=== PATIENT | male | born 1930 | race Caucasian/White ===

== ENCOUNTER 2017-10-14 03:03 | Emergency (ER) | payer MEDICARE ==
[~2017-10-14] VITALS: Ht 177.8 cm; Wt 72.0 kg
[~2017-10-14 03:03] MED LIST: ARTIOIN RIGHT EYE; ARTISOL2 RIGHT EYE; ASPI81TA23 PO; BRIM.15%O RIGHT EYE; CARD180C5 PO; DORZ2SOL7 RIGHT EYE; FURO1TAB60 PO; LATA.005%O RIGHT EYE; METO25TA3 PO; MULTTAB67 PO; SENN1TAB27 PO
[2017-10-14 03:11] VITALS: BP 151/70; PULSE 58; RESP 16; TEMP 98.9; O2SAT 98
[2017-10-14 03:40] VITALS: BP 151/70; PULSE 58; RESP 16; O2SAT 98
[2017-10-14] MEDS ORDERED: SODIUM CHLORIDE 0.9% FLUSH 10 ML FLUSH IV FLUSH PRN (03:45)
--- NOTE | 2017-10-14 03:56 | PD ---
HPI Chief Complaint: Altered Mental Status Time Seen by Provider: 03:32 Travel History International Travel<30 days: No Contact w/Intl Traveler<30days: No Traveled to known affect area: No History of Present Illness HPI 87-year-old male presents with altered mental status by ambulance. There is no family or paramedics to assist with my history when I go to talk with patient. Nursing staff states they were told his symptoms started at 1 PM. Patient can tell me his name and that he is in the hospital but then he will say random things like [id number], pudding. He denies complaints but is a very poor historian. PFSH Past Medical History Cancer: Yes (prostate-15 years ago) Cardiovascular Problems: Yes High Cholesterol: Yes Diabetes: No Diminished Hearing: No Glaucoma: Yes Genitourinary: No Hypertension: Yes Musculoskeletal: No Neurologic: No Reproductive: No Respiratory: No Tetanus Vaccination: Unknown Past Surgical History Eye Surgery: Yes Other Surgery: Yes (prostate cancer) Social History Alcohol Use: No Tobacco Use: No Substance Use: No Allergies-Medications (Allergen,Severity, Reaction): Coded Allergies: penicillin G (Unverified Allergy, Unknown, 10/14/17) Reported Meds & Prescriptions Reported Meds & Active Scripts Active Macrobid (Nitrofurantoin Monohydrate Macrocrystals) 100 Mg Capsule 100 Mg PO BID 5 Days Senna Lax (Sennosides) 8.6 Mg Tab 17.2 Mg PO Q12H PRN 30 Days Lasix (Furosemide) 40 Mg Tab 40 Mg PO BID@09,18 30 Days Aspirin EC (Aspirin) 81 Mg Tabdr 81 Mg PO DAILY 30 Days Cardizem CD 24 HR (Diltiazem CD 24 HR) 180 Mg Caper 180 Mg PO DAILY 30 Days Reported Metoprolol Tartrate 25 Mg Tab 25 Mg PO Q12HR Xalatan Opth Drops (Latanoprost) 0.005% Drops 1 Drop RIGHT EYE HS Multiple Vitamin 1 Tab 1 Tab PO DAILY Lubricant Opth Ointment (Artificial Tear Opth Ointment) 1 Oint 1 Applic RIGHT EYE DAILY Artificial Tears Opth Drops (Artificial Tear Solution Opth Drops) 0.1-0.3% Soln 1 Drop RIGHT EYE DAILY Cosopt Opth Drops (Dorzolamide-Timolol Opth Drops) 22.3-6.8 Mg/Ml Soln 1 Drop RIGHT EYE BID Alphagan P Opth Drops (Brimonidine Tartrate) 0.15% Soln 1 Drop RIGHT EYE DAILY Review of Systems Except as stated in HPI: all other systems reviewed are Neg Physical Exam Exam Limitations: Poor Historian Narrative GENERAL: Well-nourished, well-developed patient. SKIN: Warm and dry. HEAD: Normocephalic and atraumatic. EYES: No injection or drainage. ENT: No nasal drainage noted. NECK: Supple, trachea midline. CARDIOVASCULAR: Regular rate and rhythm RESPIRATORY: Breath sounds equal bilaterally. No accessory muscle use. GASTROINTESTINAL: Abdomen soft, non-tender, nondistended. NEUROLOGICAL: Awake and alert To name, location. Moves all extremities and sensory grossly within normal limits. Normal speech. Data Data Last Documented VS Vital Signs Date Time Temp Pulse Resp B/P (MAP) Pulse Ox O2 Delivery O2 Flow Rate FiO2 10/14/17 07:51 10/14/17 06:38 71 16 95 Room Air 10/14/17 03:11 98.9 Orders Orders Electrocardiogram (10/14/17 03:36) Basic Metabolic Panel (Bmp) (10/14/17 03:36) Complete Blood Count With Diff (10/14/17 03:36) Prothrombin Time / Inr (Pt) (10/14/17 03:36) Act Partial Throm Time (Ptt) (10/14/17 03:36) Urinalysis - C+S If Indicated (10/14/17 03:36) Ct Brain W/O Iv Contrast(Rout) (10/14/17 03:36) Blood Glucose (10/14/17 03:36) Ecg Monitoring (10/14/17 03:36) Iv Access Insert/Monitor (10/14/17 03:36) Oximetry (10/14/17 03:36) Sodium Chloride 0.9% Flush (Ns Flush) (10/14/17 03:45) Cath For Specimen (10/14/17 04:47) Urine Culture (10/14/17 04:18) Nitrofurantoin Monohyd Macrocr (Macrobid (10/14/17 06:30) Ed Discharge Order (10/14/17 07:11) Labs Laboratory Tests Test 10/14/17 03:49 10/14/17 04:18 White Blood Count 6.2 TH/MM3 Red Blood Count 3.23 MIL/MM3 Hemoglobin 11.0 GM/DL Hematocrit 32.5 % Mean Corpuscular Volume 100.7 FL Mean Corpuscular Hemoglobin 34.0 PG Mean Corpuscular Hemoglobin Concent 33.7 % Red Cell Distribution Width 13.2 % Platelet Count 195 TH/MM3 Mean Platelet Volume 9.1 FL Neutrophils (%) (Auto) 63.4 % Lymphocytes (%) (Auto) 19.0 % Monocytes (%) (Auto) 13.2 % Eosinophils (%) (Auto) 3.7 % Basophils (%) (Auto) 0.7 % Neutrophils # (Auto) 4.0 TH/MM3 Lymphocytes # (Auto) 1.2 TH/MM3 Monocytes # (Auto) 0.8 TH/MM3 Eosinophils # (Auto) 0.2 TH/MM3 Basophils # (Auto) 0.0 TH/MM3 CBC Comment DIFF FINAL Differential Comment Prothrombin Time 10.6 SEC Prothromb Time International Ratio 1.0 RATIO Activated Partial Thromboplast Time 25.4 SEC Blood Urea Nitrogen 13 MG/DL Creatinine 0.93 MG/DL Random Glucose 107 MG/DL Calcium Level 8.3 MG/DL Sodium Level 140 MEQ/L Potassium Level 3.1 MEQ/L Chloride Level 107 MEQ/L Carbon Dioxide Level 24.2 MEQ/L Anion Gap 9 MEQ/L Estimat Glomerular Filtration Rate 77 ML/MIN Urine Color YELLOW Urine Turbidity HAZY Urine pH 7.5 Urine Specific [place] 1.010 Urine Protein TRACE mg/dL Urine Glucose (UA) NEG mg/dL Urine Ketones NEG mg/dL Urine Occult Blood NEG Urine Nitrite NEG Urine Bilirubin NEG Urine Urobilinogen 2.0 MG/DL Urine Leukocyte Esterase NEG Urine RBC 1 /hpf Urine WBC 1 /hpf Urine Amorphous Sediment RARE Urine Bacteria OCC /hpf Urine Mucus FEW /lpf Microscopic Urinalysis Comment CATH-CULTURE IND MDM Medical Decision Making Medical Screen Exam Complete: Yes Emergency Medical Condition: Yes Medical Record Reviewed: Yes (past history confirmed) Interpretation(s) CBC & BMP Diagram 10/14/17 03:49 Calcium Level 8.3 L Last [address] 10/14/17 0336 Signed Impressions: Service Date/Time: Saturday, October 14, 2017 03:57 - CONCLUSION: Stable noncontrast head CT. No acute intracranial abnormality is identified. Jasvir Mendoza MD Differential Diagnosis UTI, electrolyte abnormality, intracranial, dementia Narrative Course Will check blood work, urinalysis, CT brain and reevaluate UA question signs of infection but there is no LE or nitrates, patient does have underlying dementia. Discussed with grandson and they will watch over him at home today and I will place him on Macrobid. Patient has no fever, leukocytosis and patient can state his name and location currently he can even state the month and day. neuro exam is nonfocal, Given he has family I think this is appropriate for discharge. Also talked with his daughter who is power of bingo usher over the phone and offered options and she agrees to discharge with close outpatient monitoring. Gave her return instructions Diagnosis Primary Impression: Altered mental status Qualified Codes: R41.82 - Altered mental status, unspecified Patient Instructions: General Instructions Additional Instructions: return as needed, follow with primary tommorrow Med/Other Pt SpecificInfo: Prescription(s) given Scripts Nitrofurantoin Monohydrate Macrocrystals (Macrobid) 100 Mg Capsule 100 MG PO BID for Infection for 5 Days, #10 CAP 0 Refills Prov: Bushra Oropeza MD 10/14/17 Disposition: 01 DISCHARGE HOME Condition: Stable Bushra Oropeza MD Oct 14, 2017 03:56
[2017-10-14 04:02] LABS: BASOPHIL % 0.7 % (0.0-2.0); EOSINOPHIL # 0.2 TH/MM3 (0-0.4); EOSINOPHIL % 3.7 % (0.0-4.0); HEMATOCRIT 32.5 % (39.0-51.0); HEMO FLAGS DIFF FINAL; LYMPHOCYTE # 1.2 TH/MM3 (1.0-4.8); MEAN CELL VOLUME 100.7 FL (80.0-100.0); MEAN CORPUSCULAR HGB CONC 33.7 % (32.0-36.0); MONO % 13.2 % (0.0-8.0); NEUT % 63.4 % (16.0-70.0); PLATELET COUNT 195 TH/MM3 (150-450); RED BLOOD COUNT 3.23 MIL/MM3 (4.50-5.90); RED CELL DISTRIBUTION WIDTH 13.2 % (11.6-17.2); WHITE BLOOD COUNT 6.2 TH/MM3 (4.0-11.0)
[2017-10-14 04:14] LABS: APTT (PATIENT) 25.4 SEC (24.3-30.1); PROTHROMBIN TIME - PATIENT 10.6 SEC (9.8-11.6)
[2017-10-14 04:17] LABS: BICARBONATE 24.2 MEQ/L (21.0-32.0); POTASSIUM 3.1 MEQ/L (3.5-5.1)
--- NOTE | 2017-10-14 04:38 | RADRPT ---
EXAM DATE/TIME: 10/14/2017 03:57 [facility] COMPARISON: CT BRAIN W/O CONTRAST, October 21, 2016, 10:06. INDICATIONS : Altered mental status. RADIATION DOSE: 56.35 CTDIvol (mGy) MEDICAL HISTORY : Hypertension. Carcinoma, prostate. SURGICAL HISTORY : None. ENCOUNTER: Initial ACUITY: 1 day PAIN SCALE: 0/10 LOCATION: cranial TECHNIQUE: Multiple contiguous axial images were obtained of the head. Using automated exposure control and adj ustment of the mA and/or kV according to patient size, radiation dose was kept as low as reasonably a chievable to obtain optimal diagnostic quality images. DICOM format image data is available electro nically for review and comparison. FINDINGS: CEREBRUM: There is mild cerebral atrophy. Ventricles are normal. Mild periventricular white matter low-attenuat ion is present. No evidence of midline shift, mass lesion, hemorrhage or acute infarction. No extra -axial fluid collections are seen. POSTERIOR FOSSA: The cerebellum and brainstem are intact. The 4th ventricle is midline. The cerebellopontine angle i s unremarkable. EXTRACRANIAL: Visualized sinuses are clear. SKULL: The calvaria is intact. No evidence of skull fracture. CONCLUSION: Stable noncontrast head CT. No acute intracranial abnormality is identified. Jasvir Mendoza MD on October 14, 2017 at 4:35 Board Certified Radiologist. This report was verified electronically.
[2017-10-14 05:39] LABS: BACTERIA, URINE OCC /hpf; BLOOD, URINE NEG (NEG); COMMENT (UR) CATH-CULTURE IND; CULTURE IF INDICATED CATH CULTURE IND; GLUCOSE,URINE NEG (NEG); KETONE, URINE NEG (NEG); MUCUS URINE FEW /lpf (OCC); NITRITE,URINE NEG (NEG); PH, URINE 7.5 (5.0-8.5); URINE COLOR YELLOW (YELLW/STRAW)
[2017-10-14] MEDS ORDERED: NITROFURANTOIN MONOHYD MACROCR 100 MG CAP PO ONE (06:30)
[2017-10-14 06:38] VITALS: BP 116/57; PULSE 71; RESP 16; O2SAT 95
[2017-10-14] MEDS ORDERED: MACR100C2 PO (06:54)
--- NOTE | 2017-10-14 16:29 | EKG ---
Date Performed: 10/14/2017 Time Performed: 03:57:10 PTAGE: 87 years EKG: SINUS BRADYCARDIA MARKED LEFT AXIS DEVIATION SEPTAL MYOCARDIAL INFARCTION ABNORMAL ECG Comp ared to PREVIOUS TRACING , patient is no longer in RVR and patient is no longer tachycardic. PREV IOUS TRACIN10/17/2016 06.28 DOCTOR: Karmen Ramsey Interpretating Date/Time 10/14/2017 16:29:14
== END 2017-10-14 07:52 | disposition home or self-care (01) ==
LOC: NEPE 03:03
DX: R41.82 Altered mental status, unspecified (principal); R00.1 Bradycardia, unspecified; R94.31 Abnormal electrocardiogram [ECG] [EKG]; E78.00 Pure hypercholesterolemia, unspecified; I10 Essential (primary) hypertension; H40.9 Unspecified glaucoma; Z79.82 Long term (current) use of aspirin; Z79.899 Other long term (current) drug therapy
CPT/HCPCS: 70450; 80048; 81001; 85025; 85610; 85730; 87086; 93005; 99285

== ENCOUNTER 2017-11-02 19:16 | Observation (INO) | payer MEDICARE ==
[~2017-11-02] VITALS: Ht 175.3 cm; Wt 65.0 kg
[~2017-11-02 19:16] MED LIST changes: +MACR100C2 PO
[2017-11-02 19:20] VITALS: BP 135/78; PULSE 67; RESP 18; TEMP 97.8; O2SAT 98
[2017-11-02 20:27] LABS: AUTOMATED NEUTROPHIL # 6.2 TH/MM3 (1.8-7.7); BASOPHIL # 0.1 TH/MM3 (0-0.2); BASOPHIL % 1.1 % (0.0-2.0); EOSINOPHIL # 0.3 TH/MM3 (0-0.4); EOSINOPHIL % 2.9 % (0.0-4.0); HEMATOCRIT 38.8 % (39.0-51.0); HEMOGLOBIN 13.2 GM/DL (13.0-17.0); LYMPH % 19.1 % (9.0-44.0); LYMPHOCYTE # 1.7 TH/MM3 (1.0-4.8); MEAN CELL VOLUME 100.3 FL (80.0-100.0); MEAN CORPUSCULAR HGB CONC 33.9 % (32.0-36.0); MEAN PLATELET VOLUME 8.9 FL (7.0-11.0); MONO % 8.3 % (0.0-8.0); MONOCYTE # 0.7 TH/MM3 (0-0.9); NEUT % 68.6 % (16.0-70.0); PLATELET COUNT 339 TH/MM3 (150-450); RED BLOOD COUNT 3.87 MIL/MM3 (4.50-5.90); RED CELL DISTRIBUTION WIDTH 13.7 % (11.6-17.2)
--- NOTE | 2017-11-02 20:32 | RADRPT ---
EXAM DATE/TIME: 11/02/2017 20:05 [facility] COMPARISON: CT BRAIN W/O CONTRAST, October 21, 2016, 10:06. CT BRAIN W/O CONTRAST, October 14, 2017, 3:57. INDICATIONS : Posterior head pain due to fall. RADIATION DOSE: 47.21 CTDIvol (mGy) MEDICAL HISTORY : Hypertension. Carcinoma, prostate. SURGICAL HISTORY : None. ENCOUNTER: Initial ACUITY: 2 days PAIN SCALE: 5/10 LOCATION: Bilateral cranial posterior. TECHNIQUE: Multiple contiguous axial images were obtained of the head. Using automated exposure control and adj ustment of the mA and/or kV according to patient size, radiation dose was kept as low as reasonably a chievable to obtain optimal diagnostic quality images. DICOM format image data is available electro nically for review and comparison. FINDINGS: CEREBRUM: Focal area of encephalomalacia in the right MCA/SERVICE LEARNING COORDINATOR watershed zone, characteristic of old infarction, is similar in size to prior CT 10/14/17, but is more hypodense suggesting a completed infarction. Th e ventricles are symmetric in size. The ventricles, sulci, and basal cisterns are prominent, charact eristic of mild central cortical atrophy. No evidence of acute blood products. No extra-axial fluid or blood. POSTERIOR FOSSA: The cerebellum and brainstem are intact. The 4th ventricle is midline. The cerebellopontine angle i s unremarkable. EXTRACRANIAL: The visualized portion of the orbits is intact. SKULL: The calvaria is intact. No evidence of skull fracture. CONCLUSION: 1. No acute findings in the brain. 2. Mild central and cortical atrophy. 3. Right MCA/SERVICE LEARNING COORDINATOR watershed infarct, subacute or chronic. Darian Esteban MD on November 02, 2017 at 20:27 Board Certified Radiologist. This report was verified electronically.
--- NOTE | 2017-11-02 20:47 | PD ---
HPI Chief Complaint: Fall Time Seen by Provider: 20:41 Travel History International Travel<30 days: No Contact w/Intl Traveler<30days: No Traveled to known affect area: No History of Present Illness HPI 87-year-old male presents to the emergency department by private transportation the care of family for evaluation of generalized weakness and right rib pain. Patient had an unwitnessed fall on Tuesday unknown loss of consciousness. Patient was seen October 14 for generalized weakness and diagnosed with UTI. Patient did prescribe Macrobid. Patient this evening was noted by grandson to complain of pain in the right side of his chest with movement. Agent was noted to have generalized weakness. Patient has not had imaging of the head since fall on Tuesday. Patient denies any shortness of breath. No generalized or anterior chest pain. Patient only has pain with movement and deep inspiratory effort. No fever or chills. Patient has had nausea without vomiting. No abdominal pain no diarrhea. Past that was a significant for hypertension dyslipidemia and blindness. Patient reports right sided chest wall pain 5/10 in intensity. Patient lives independently with his grandsons and his home and according to grandson at bedside there is always an adult in the household with the patient. PFSH Past Medical History Narrative Medical Prostate cancer blindness hypertension dyslipidemia no tobacco use alcohol use Cancer: Yes (prostate-15 years ago) Cardiovascular Problems: Yes High Cholesterol: Yes Diabetes: No Diminished Hearing: No Glaucoma: Yes Genitourinary: No Hypertension: Yes Musculoskeletal: No Neurologic: No Reproductive: No Respiratory: No Past Surgical History Eye Surgery: Yes Other Surgery: Yes (prostate cancer) Social History Alcohol Use: No Tobacco Use: No Substance Use: No Allergies-Medications (Allergen,Severity, Reaction): Coded Allergies: penicillin G (Unverified Allergy, Unknown, 11/02/17) Reported Meds & Prescriptions Reported Meds & Active Scripts Active Lasix (Furosemide) 40 Mg Tab 40 Mg PO BID@,18 30 Days Aspirin EC (Aspirin) 81 Mg Tabdr 81 Mg PO DAILY 30 Days Cardizem CD 24 HR (Diltiazem CD 24 HR) 180 Mg Caper 180 Mg PO DAILY 30 Days Reported Metoprolol Tartrate 25 Mg Tab 25 Mg PO Q12HR Xalatan Opth Drops (Latanoprost) 0.005% Drops 1 Drop RIGHT EYE HS Multiple Vitamin 1 Tab 1 Tab PO DAILY Lubricant Opth Ointment (Artificial Tear Opth Ointment) 1 Oint 1 Applic RIGHT EYE DAILY Artificial Tears Opth Drops (Artificial Tear Solution Opth Drops) 0.1-0.3% Soln 1 Drop RIGHT EYE DAILY Cosopt Opth Drops (Dorzolamide-Timolol Opth Drops) 22.3-6.8 Mg/Ml Soln 1 Drop RIGHT EYE BID Alphagan P Opth Drops (Brimonidine Tartrate) 0.15% Soln 1 Drop RIGHT EYE DAILY Review of Systems Except as stated in HPI: all other systems reviewed are Neg General / Constitutional: No: Fever, Chills Eyes: No: Visual changes HENT: Positive: Headaches, No: Neck Pain Cardiovascular: Positive: Chest Pain or Discomfort (right chest wall) Respiratory: No: Shortness of Breath, Pleuritic Pain Gastrointestinal: Positive: Nausea, No: Vomiting, Diarrhea, Abdominal Pain Musculoskeletal: No: Myalgias, Arthralgias Skin: No Rash Neurologic: Positive: Weakness, Dizziness, No: Syncope, Focal Abnormalities Psychiatric: No: Anxiety Hematologic/Lymphatic: No: Lymph Node Enlargement Physical Exam Narrative GENERAL: Well-developed well-nourished male in no acute distress no respiratory distress GCS 15 SKIN: Warm and dry. HEAD: Atraumatic. Normocephalic. EYES: Pupils equal and round. No scleral icterus. No injection or drainage. ENT: No nasal bleeding or discharge. Mucous membranes pink and moist. NECK: Trachea midline. No JVD. No midline tenderness to direct palpation along the cervical spine, no bony step-off. CARDIOVASCULAR: Regular rate and rhythm. Chest wall: No ecchymosis no abrasion no point tenderness or crepitus no induration no erythema. RESPIRATORY: No accessory muscle use. Clear to auscultation. Breath sounds equal bilaterally. GASTROINTESTINAL: Abdomen soft, non-tender, nondistended. Hepatic and splenic margins not palpable. MUSCULOSKELETAL: Extremities without clubbing, cyanosis, or edema. No obvious deformities. NEUROLOGICAL: Awake and alert. No obvious cranial nerve deficits. Motor grossly within normal limits. Five out of 5 muscle strength in the arms and legs. Normal speech. PSYCHIATRIC: Appropriate mood and affect; insight and judgment normal. Data Data Last Documented VS Vital Signs Date Time Temp Pulse Resp B/P (MAP) Pulse Ox O2 Delivery O2 Flow Rate FiO2 11/02/17 21:45 Nasal Cannula 11/02/17 19:20 97.8 67 18 135/78 (97) 98 Orders Orders Prothrombin Time / Inr (Pt) (11/02/17 19:23) Act Partial Throm Time (Ptt) (11/02/17 19:23) Complete Blood Count With Diff (11/02/17 19:23) Comprehensive Metabolic Panel (11/02/17 19:23) Creatine Kinase (Cpk) (11/02/17 19:23) Urinalysis - C+S If Indicated (11/02/17 19:23) Ct Brain W/O Iv Contrast(Rout) (11/02/17 19:23) Ct Cerv Spine W/O Contrast (11/02/17 ) Ribs, Uni (W/Exp Cxr-Min 3vw) (11/02/17 ) Troponin I (11/02/17 20:41) Ckmb (Isoenzyme) Profile (11/02/17 20:55) Ketorolac Inj (Toradol Inj) (11/02/17 22:00) Acetaminophen (Tylenol) (11/02/17 22:30) Aspirin Chew (Aspirin Chew) (11/02/17 22:30) Admit Order (Ed Use Only) (11/02/17 ) Instructor Kindergarten / Telemetry [id number] (11/02/17 23:03) Activity Oob With Assistance (11/02/17 23:03) Notify Dr: Other (11/02/17 23:03) Labs Laboratory Tests Test 11/02/17 19:51 White Blood Count 9.0 TH/MM3 Red Blood Count 3.87 MIL/MM3 Hemoglobin 13.2 GM/DL Hematocrit 38.8 % Mean Corpuscular Volume 100.3 FL Mean Corpuscular Hemoglobin 34.0 PG Mean Corpuscular Hemoglobin Concent 33.9 % Red Cell Distribution Width 13.7 % Platelet Count 339 TH/MM3 Mean Platelet Volume 8.9 FL Neutrophils (%) (Auto) 68.6 % Lymphocytes (%) (Auto) 19.1 % Monocytes (%) (Auto) 8.3 % Eosinophils (%) (Auto) 2.9 % Basophils (%) (Auto) 1.1 % Neutrophils # (Auto) 6.2 TH/MM3 Lymphocytes # (Auto) 1.7 TH/MM3 Monocytes # (Auto) 0.7 TH/MM3 Eosinophils # (Auto) 0.3 TH/MM3 Basophils # (Auto) 0.1 TH/MM3 CBC Comment DIFF FINAL Differential Comment Prothrombin Time 10.4 SEC Prothromb Time International Ratio 1.0 RATIO Activated Partial Thromboplast Time 26.1 SEC Urine Color YELLOW Urine Turbidity CLEAR Urine pH 6.0 Urine Specific [place] 1.020 Urine Protein TRACE mg/dL Urine Glucose (UA) NEG mg/dL Urine Ketones NEG mg/dL Urine Occult Blood NEG Urine Nitrite NEG Urine Bilirubin NEG Urine Urobilinogen 4.0 MG/DL Urine Leukocyte Esterase NEG Urine WBC 1 /hpf Urine Mucus FEW /lpf Microscopic Urinalysis Comment CULT NOT INDICATED Blood Urea Nitrogen 15 MG/DL Creatinine 1.11 MG/DL Random Glucose 138 MG/DL Total Protein 8.1 GM/DL Albumin 3.7 GM/DL Calcium Level 9.2 MG/DL Alkaline Phosphatase 180 U/L Aspartate Amino Transf (AST/SGOT) 16 U/L Alanine Aminotransferase (ALT/SGPT) 17 U/L Total Bilirubin 0.7 MG/DL Sodium Level 143 MEQ/L Potassium Level 4.0 MEQ/L Chloride Level 109 MEQ/L Carbon Dioxide Level 22.9 MEQ/L Anion Gap 11 MEQ/L Estimat Glomerular Filtration Rate 63 ML/MIN Total Creatine Kinase 36 U/L Troponin I LESS THAN 0.02 NG/ML MDM Medical Decision Making Medical Screen Exam Complete: Yes Emergency Medical Condition: Yes Medical Record Reviewed: Yes Interpretation(s) CBC & BMP Diagram 11/02/17 19:51 Total Protein 8.1, Albumin 3.7, Calcium Level 9.2, Alkaline Phosphatase 180 H, Aspartate Amino Transf (AST/SGOT) 16, Alanine Aminotransferase (ALT/SGPT) 17, Total Bilirubin 0.7 Vital Signs Date Time Temp Pulse Resp B/P (MAP) Pulse Ox O2 Delivery O2 Flow Rate FiO2 11/02/17 19:20 97.8 67 18 135/78 (97) 98 Room Air EKG sinus bradycardia rate 55 axis deviation QS septally age-indeterminate infarct no acute ST elevation or injury pattern change noted Troponin I: Less than 0.02, not elevated; CK is 35 not elevated Last Impressions Head CT 11/02/171922 Signed Impressions: Service Date/Time: Thursday, November 02, 2017 20:05 - CONCLUSION: 1. No acute findings in the brain. 2. Mild central and cortical atrophy. 3. Right MCA/CAMPAIGN SPECIALIST watershed infarct, subacute or chronic. aDrian Esteban MD Cervical Spine CT 11/02/17 0000 Signed Impressions: Service Date/Time: Thursday, November 02, 2017 20:05 - CONCLUSION: No acute findings in the cervical spine. Degenerative changes are similar to prior CT cervical spine 2013. Darian Esteban MD Differential Diagnosis Minor closed head injury, ICH cervical spine sprain strain fracture rib fracture pneumothorax pleural effusion hemothorax UTI ACS OK renal failure pneumonia sepsis Narrative Course Imaging studies ordered along with EKG patient placed on rn cardiac rehab with continuous pulse oximetry is unaffected for resulting Physician Communication Physician Communication discussed with Dr Ruiz --discussed with Dr Martell --change to [facility] for Dr Ruiz; discussed with Dr Aguero Diagnosis Primary Impression: Contusion of right chest wall Additional Impression: Recent cerebrovascular accident (CVA) Admitting Information Admitting Physician Requests: Observation Referrals: Primary Care Physician 1 day Patient Instructions: General Instructions Additional Instructions: Follow-up with primary care provider call office in a.m. to schedule follow-up appointment Increase fluid hydration May take acetaminophen/Tylenol as needed for minor pain or fever 100.4F or greater Complete course of antibiotic as prescribed Return to the emergency department for any concerns or change in condition Recommend use of walker to assist ambulation Med/Other Pt SpecificInfo: No Meds Exist/No RX given Disposition: 01 DISCHARGE HOME Condition: Stable Zahraa Duong MD Nov 02, 2017 20:47
[2017-11-02 20:50] LABS: ALBUMIN 3.7 GM/DL (3.4-5.0); AST (GOT) 16 U/L (15-37); BICARBONATE 22.9 MEQ/L (21.0-32.0); BLOOD UREA NITROGEN 15 MG/DL (7-18); CALCIUM 9.2 MG/DL (8.5-10.1); CHLORIDE 109 MEQ/L (98-107); CREATININE 1.11 MG/DL (0.60-1.30); GLOMERULAR FILTRATION RATE 63 ML/MIN (>89); GLUCOSE,RANDOM 138 MG/DL (74-106); SODIUM (NA) 143 MEQ/L (136-145)
[2017-11-02 20:51] LABS: ALT (GPT) 17 U/L (12-78); BILIRUBIN, URINE NEG (NEG); BLOOD, URINE NEG (NEG); GLUCOSE,URINE NEG (NEG); KETONE, URINE NEG (NEG); MUCUS URINE FEW /lpf (OCC); NITRITE,URINE NEG (NEG); URINE COLOR YELLOW (YELLW/STRAW); URINE LEUKOCYTE ESTERASE NEG (NEG)
[2017-11-02 20:53] LABS: ALKALINE PHOSPHATASE 180 U/L (45-117); TOTAL BILIRUBIN ADULT 0.7 MG/DL (0.2-1.0); TOTAL PROTEIN 8.1 GM/DL (6.4-8.2)
[2017-11-02 20:58] LABS: PROTHROMBIN TIME - PATIENT 10.4 SEC (9.8-11.6)
--- NOTE | 2017-11-02 21:37 | RADRPT ---
EXAM DATE/TIME: 11/02/2017 20:05 [facility] COMPARISON: CT CERVICAL SPINE W/O CONTRAST, July 12, 2013, 16:02. INDICATIONS : Posterior neck pain due to fall. RADIATION DOSE: 41.22 CTDIvol (mGy) MEDICAL HISTORY : Hypertension. Carcinoma, prostate. SURGICAL HISTORY : None. ENCOUNTER: Initial ACUITY: 2 days PAIN SCALE: 5/10 LOCATION: Bilateral posterior neck. TECHNIQUE: Volumetric scanning of the cervical spine was performed. Multiplanar reconstructions in the sagittal, coronal and oblique axial planes were performed. Using automated exposure control and adjustment o f the mA and/or kV according to patient size, radiation dose was kept as low as reasonably achievable to obtain optimal diagnostic quality images. DICOM format image data is available electronically f or review and comparison. FINDINGS: Comparison is made to prior CT in 2013. There is reversal of the upper cervical lordosis and moderat e severity discogenic degenerative changes at C5-6 and C6-7. Less than 1 mm anterolisthesis at C4-5. The appearance is unchanged from prior examination. The posterior elements are normal and without evidence of locked or perched facets. Diffuse multilevel hypertrophic changes in the posterior eleme nts is stable. No fracture seen. The bony neural foramen are moderately narrowed bilaterally at C4- 5 and C5-6. Prominent calcification the level of the carotid bulb bilaterally. CONCLUSION: No acute findings in the cervical spine. Degenerative changes are similar to prior CT cervical spine 2013. Darian Esteban MD on November 02, 2017 at 21:32 Board Certified Radiologist. This report was verified electronically.
[2017-11-02] MEDS ORDERED: KETOROLAC TROMETHAMINE 30 MG/ML (IVP) VIAL IV PUSH ONE (22:00)
[2017-11-02] MEDS ORDERED: ACETAMINOPHEN 325 MG TAB PO ONE (22:30)
[2017-11-02] MEDS ORDERED: ASPIRIN 81 MG CHEW TAB CHEW ONE (22:30)
--- NOTE | 2017-11-02 22:31 | RADRPT ---
EXAM DATE/TIME: 11/02/2017 21:06 [facility] COMPARISON: CT THORAX W/O CONTRAST, October 21, 2016, 10:07. CHEST SINGLE AP, October 25, 2016, 15:48. INDICATIONS : Right sided rib pain post fall today MEDICAL HISTORY : Hypertension. Carcinoma, prostate SURGICAL HISTORY : None. ENCOUNTER: Initial ACUITY: 1 day PAIN SCORE: 5/10 LOCATION: Right posterior ribs FINDINGS: Multiple views of the right ribs were performed. There is no evidence of displaced fracture. No zandra tructive lesions or areas of periosteal thickening are seen. Expiratory view of the chest is negativ e for pneumothorax. The mediastinal structures are midline. Stable prominence of the right hilar re gion. CONCLUSION: Negative right rib series. Darian Esteban MD on November 02, 2017 at 22:26 Board Certified Radiologist. This report was verified electronically.
[2017-11-02 23:18] VITALS: BP 146/72; PULSE 56; RESP 16; O2SAT 98
[2017-11-02] MEDS ORDERED: ENALAPRILAT 1.25 MG/ML VIAL IV PUSH PRN (23:45)
[2017-11-02] MEDS ORDERED: DEXTROSE 50% IN WATER 50 ML VIAL(D50) IV PUSH PRN (23:45)
[2017-11-02] MEDS ORDERED: SODIUM CHLORIDE 0.9% FLUSH 10 ML FLUSH IV FLUSH PRN (23:45)
[2017-11-02] MEDS ORDERED: GLUCAGON 1 MG/ML VIAL OTHER PRN (23:45)
[2017-11-03] VITALS (11 sets, daily range): BP systolic 113–157; BP diastolic 59–88; PULSE 55–74; RESP 16–21; TEMP 96–98.1; O2SAT 95–99
[2017-11-03 06:43] LABS: CHOLESTEROL 140 MG/DL (120-200); TRIGLYCERIDES 227 MG/DL (42-150)
[2017-11-03 06:47] LABS: CHOLESTEROL/ HDL RATIO 3.42 RATIO; HDL CHOLESTEROL 40.9 MG/DL (40.0-60.0); LDL CHOLESTEROL 54 MG/DL (0-99)
[2017-11-03] MEDS: INSULIN ASPART SUPPLEMENTAL SCALE SQ SCH ×4 (07:51→20:11)
[2017-11-03] MEDS: SODIUM CHLORIDE 0.9% FLUSH 10 ML FLUSH IV FLUSH SCH ×2 (08:04→20:11)
--- NOTE | 2017-11-03 08:43 | HHI.HP ---
[facility] No Primary Care Physician Admission Diagnosis recent cva; right chest wall contusion Diagnoses: Chief Complaint: Multiple falls Travel History International Travel<30 Days: No Contact w/Intl Traveler <30 Da: No Traveled to Known Affected Are: No History of Present Illness This is an 87-year-old male past medical history hypertension, hyperlipidemia, history of CVA with no deficits, and history of prostate cancer who presented with multiple falls. Patient stated that he presented because he has been falling multiple times the past week. I asked him in regards to his rib cage that was noted in the ER physician no and patient deny any pain. He denied any imbalance or focal neurological deficits. He stated that he just feels like he needs his cane and he usually doesn't walk with his cane but does not know why. Denies any generalized weakness. Denies any visual changes or headache. Patient takes baby aspirin at home. At the moment he has no other complaints. All other review of system reviewed and negative. Past Family Social History Past Medical History History of CVA Hypertension History of prostate cancer Hyperlipidemia Glaucoma Past Surgical History Multiple back surgery Surgery on prostate Eye surgery Reported Medications Reported Meds & Active Scripts Active Lasix (Furosemide) 40 Mg Tab 40 Mg PO BID@09,18 30 Days Aspirin EC (Aspirin) 81 Mg Tabdr 81 Mg PO DAILY 30 Days Cardizem CD 24 HR (Diltiazem CD 24 HR) 180 Mg Caper 180 Mg PO DAILY 30 Days Reported Metoprolol Tartrate 25 Mg Tab 25 Mg PO Q12HR Xalatan Opth Drops (Latanoprost) 0.005% Drops 1 Drop RIGHT EYE HS Multiple Vitamin 1 Tab 1 Tab PO DAILY Lubricant Opth Ointment (Artificial Tear Opth Ointment) 1 Oint 1 Applic RIGHT EYE DAILY Artificial Tears Opth Drops (Artificial Tear Solution Opth Drops) 0.1-0.3% Soln 1 Drop RIGHT EYE DAILY Cosopt Opth Drops (Dorzolamide-Timolol Opth Drops) 22.3-6.8 Mg/Ml Soln 1 Drop RIGHT EYE BID Alphagan P Opth Drops (Brimonidine Tartrate) 0.15% Soln 1 Drop RIGHT EYE DAILY Allergies: Coded Allergies: penicillin G (Unverified Allergy, Unknown, 11/02/17) Active Ordered Medications Current Medications Ketorolac Tromethamine (Toradol Inj) 30 mg ONCE ONCE IV PUSH ; Start 11/02/17 at 22:00; Stop 11/02/17 at 22:25; Status DC Acetaminophen (Tylenol) 650 mg ONCE ONCE PO Last administered on 11/02/17 22 :46; Start 11/02/17 at 22:30; Stop 11/02/17 at 22:31; Status DC Aspirin (Aspirin Chew) 162 mg ONCE ONCE CHEW Last administered on 11/02/17 22:46; Start 11/02/17 at 22:30; Stop 11/02/17 at 22:31; Status DC Sodium Chloride (NS Flush) 2 ml BID IV FLUSH Last administered on 11/03/17 08 :04; Start 11/03/17 at 09:00 Sodium Chloride (NS Flush) 2 ml UNSCH PRN IV FLUSH FLUSH AFTER USING IV ACCESS ; Start 11/02/17 at 23:45 Enalaprilat (Vasotec Inj) 1.25 mg Q4H PRN IV PUSH For SBP > 220 or DBP > 120; Start 11/02/17 at 23:45 Aspirin (Aspirin) 325 mg DAILY PO Last administered on 11/03/17 08:04; Start 11/03/17 at 09:00 Insulin Aspart (NovoLOG SUPPLEMENTAL SCALE) 1 ACHS SQ ; Start 11/03/17 at 08:00 Dextrose (D50w (Vial) Inj) 50 ml UNSCH PRN IV PUSH HYPOGLYCEMIA-SEE COMMENTS; Start 11/02/17 at 23:45 Glucagon (Glucagon Inj) 1 mg UNSCH PRN OTHER HYPOGLYCEMIA-SEE COMMENTS; Start 11/02/17 at 23:45 Sodium Chloride 1,000 ml @ 75 mls/hr [id number] IV ; Start 11/03/17 at 09:00 Warfarin Sodium (Coumadin) 5 mg DAILY@1600 PO ; Start 11/03/17 at 16:00; Status UNV Family History Patient denies any past family history. Social History Patient lives with 3 of his grandson. Denies any alcohol, tobacco, illicit drug use. Physical Exam Vital Signs Vital Signs Date Time Temp Pulse Resp B/P (MAP) Pulse Ox O2 Delivery O2 Flow Rate FiO2 11/03/17 08:02 97.6 58 21 147/73 (97) 96 Room Air 11/03/17 05:00 72 16 119/59 (79) 98 Room Air 11/03/17 03:00 74 16 113/66 (82) 99 Room Air 11/03/17 01:58 97 21 11/03/17 01:00 69 16 153/88 (109) 96 Room Air 11/02/17 23:18 56 16 146/72 (96) 98 Room Air 11/02/17 21:45 Nasal Cannula 11/02/17 19:20 97.8 67 18 135/78 (97) 98 Room Air Physical Exam GENERAL: This is a well-nourished, well-developed patient, in no apparent distress. SKIN: No rashes, ecchymoses or lesions. Cool and dry. HEAD: Atraumatic. Normocephalic. No temporal or scalp tenderness. EYES: Pupils equal round and reactive. Extraocular motions intact. No scleral icterus. No injection or drainage. ENT: Nose without bleeding, purulent drainage or septal hematoma. Throat without erythema, tonsillar hypertrophy or exudate. Uvula midline. Airway patent. NECK: Trachea midline. No JVD or lymphadenopathy. Supple, nontender, no meningeal signs. CARDIOVASCULAR: Regular rate and rhythm without murmurs, gallops, or rubs. RESPIRATORY: Clear to auscultation. Breath sounds equal bilaterally. No wheezes , rales, or rhonchi. GASTROINTESTINAL: Abdomen soft, non-tender, nondistended. No hepato-splenomegaly , or palpable masses. No guarding. MUSCULOSKELETAL: Extremities without clubbing, cyanosis, or edema. No joint tenderness, effusion, or edema noted. No calf tenderness. Negative Homans sign bilaterally. NEUROLOGICAL: Awake and alert. Cranial nerves II through XII intact. Motor and sensory grossly within normal limits. Five out of 5 muscle strength in all muscle groups. Normal speech. Laboratory Laboratory Tests Test 11/02/17 19:51 11/03/17 05:47 White Blood Count 9.0 Red Blood Count 3.87 Hemoglobin 13.2 Hematocrit 38.8 Mean Corpuscular Volume 100.3 Mean Corpuscular Hemoglobin 34.0 Mean Corpuscular Hemoglobin Concent 33.9 Red Cell Distribution Width 13.7 Platelet Count 339 Mean Platelet Volume 8.9 Neutrophils (%) (Auto) 68.6 Lymphocytes (%) (Auto) 19.1 Monocytes (%) (Auto) 8.3 Eosinophils (%) (Auto) 2.9 Basophils (%) (Auto) 1.1 Neutrophils # (Auto) 6.2 Lymphocytes # (Auto) 1.7 Monocytes # (Auto) 0.7 Eosinophils # (Auto) 0.3 Basophils # (Auto) 0.1 CBC Comment DIFF FINAL Differential Comment Prothrombin Time 10.4 Prothromb Time International Ratio 1.0 Activated Partial Thromboplast Time 26.1 Urine Color YELLOW Urine Turbidity CLEAR Urine pH 6.0 Urine Specific [place] 1.020 Urine Protein TRACE Urine Glucose (UA) NEG Urine Ketones NEG Urine Occult Blood NEG Urine Nitrite NEG Urine Bilirubin NEG Urine Urobilinogen 4.0 Urine Leukocyte Esterase NEG Urine WBC 1 Urine Mucus FEW Microscopic Urinalysis Comment CULT NOT INDICATED Blood Urea Nitrogen 15 Creatinine 1.11 Random Glucose 138 Total Protein 8.1 Albumin 3.7 Calcium Level 9.2 Alkaline Phosphatase 180 Aspartate Amino Transf (AST/SGOT) 16 Alanine Aminotransferase (ALT/SGPT) 17 Total Bilirubin 0.7 Sodium Level 143 Potassium Level 4.0 Chloride Level 109 Carbon Dioxide Level 22.9 Anion Gap 11 Estimat Glomerular Filtration Rate 63 Total Creatine Kinase 36 Troponin I LESS THAN 0.02 Triglycerides Level 227 Cholesterol Level 140 LDL Cholesterol 54 HDL Cholesterol 40.9 Cholesterol/HDL Ratio 3.42 Result Diagram: 11/02/17195011/02/171950 Imaging Last Impressions Head CT 11/02/17 1923 Signed Impressions: Service Date/Time: Thursday, November 02, 2017 20:05 - CONCLUSION: 1. No acute findings in the brain. 2. Mild central and cortical atrophy. 3. Right MCA/RETREAD OPERATOR watershed infarct, subacute or chronic. Darian Esteban MD Ribs X-Ray 11/02/17 0000 Signed Impressions: Service Date/Time: Thursday, November 02, 2017 21:06 - CONCLUSION: Negative right rib series. Darian Esteban MD Cervical Spine CT 11/02/17 0000 Signed Impressions: Service Date/Time: Thursday, November 02, 2017 20:05 - CONCLUSION: No acute findings in the cervical spine. Degenerative changes are similar to prior CT cervical spine 2013. Darian Esteban MD Caplamini VTE Risk Assessment Caprini VTE Risk Assessment: Mod/High Risk (score >= 2) Caprini Risk Assessment Model Point Value = 1 Point Value = 2 Point Value = 3 Point Value = 5 Age 41-60 Minor surgery BMI > 25 kg/m2 Swollen legs Varicose veins or History of unexplained or recurrent spontaneous Oral contraceptives or hormone replacement Sepsis (< 1 month) Serious lung disease, including pneumonia (< 1 month) Abnormal pulmonary function Acute myocardial infarction Congestive heart failure (< 1 month) History of inflammatory bowel disease Medical patient at bed rest Age 61-74 Arthroscopic surgery Major open surgery (> 45 min) Laparoscopic surgery (> 45 min) Malignancy Confined to bed (> 72 hours) Immobilizing plaster cast Central venous access Age >= 75 History of VTE Family history of VTE Factor V Leiden Prothrombin [id number] Lupus anticoagulant Anticardiolipin antibodies Elevated serum homocysteine Heparin-induced thrombocytopenia Other congenital or acquired thrombophilia Stroke (< 1 month) Elective arthroplasty Hip, pelvis, or leg fracture Acute spinal cord injury (< 1 month) Prophylaxis Regimen Total Risk Factor Score Risk Level Prophylaxis Regimen 0-1 Low Early ambulation 2 Moderate Order ONE of the following: *Sequential Compression Device (SCD) *Heparin 5000 units SQ BID 3-4 Higher Order ONE of the following medications: *Heparin 5000 units SQ TID *Enoxaparin/Lovenox 40 mg SQ daily (WT < 150 kg, CrCl > 30 mL/min) *Enoxaparin/Lovenox 30 mg SQ daily (WT < 150 kg, CrCl > 10-29 mL/min) *Enoxaparin/Lovenox 30 mg SQ BID (WT < 150 kg, CrCl > 30 mL/min) AND/OR *Sequential Compression Device (SCD) 5 or more Highest Order ONE of the following medications: *Heparin 5000 units SQ TID (Preferred with Epidurals) *Enoxaparin/Lovenox 40 mg SQ daily (WT < 150 kg, CrCl > 30 mL/min) *Enoxaparin/Lovenox 30 mg SQ daily (WT < 150 kg, CrCl > 10-29 mL/min) *Enoxaparin/Lovenox 30 mg SQ BID (WT < 150 kg, CrCl > 30 mL/min) AND *Sequential Compression Device (SCD) Assessment and Plan Assessment and Plan This is a 87-year-old male past medical history hypertension, hyperlipidemia, history of CVA, history of prostate cancer who presented with multiple falls. Multiple falls/questionable imbalance -CT scan shows subacute versus chronic right MCA/RCA watershed infarct. -Neurologist consulted patient already seen by Dr. Young. -Stroke protocol ordered. -Pending MRI the brain with and without contrast, MRA of the brain and neck, ultrasound carotids, echo, lipid panel, hemoglobin A1c. -Consult PT/OT/ST and rehabilitation. -Patient was started on Coumadin and is on aspirin by neurologist. Hypertension/hyperlipidemia/history of prostate cancer/glaucoma -Restart home medication. DVT prophylaxis -On Coumadin and SCDs. Discussed Condition With Patient Camelia Spaulding MD Nov 03, 2017 08:43
[2017-11-03] MEDS ORDERED: ASPIRIN 325 MG TAB PO SCH (09:00)
--- NOTE | 2017-11-03 09:34 | RADRPT ---
EXAM DATE/TIME: 11/03/2017 08:41 [facility] COMPARISON: No previous studies available for comparison. EXTERNAL COMPARISON : [facility], [place] CAROTID ARTERIES May 24, 2012. INDICATIONS : Cerebrovascular accident. MEDICAL HISTORY : Hypercholesterolemia. Hypertension. Glaucoma. Prostate cancer. SURGICAL HISTORY : Prostate surgery. ENCOUNTER: Subsequent ACUITY: 1 day PAIN SCORE: 0/10 LOCATION: Bilateral neck PEAK SYSTOLIC VELOCITIES (cm/sec): ICA/CCA RATIO: Right: 1.2 Left: 1.3 ICA: Right: 96 Left: 108 CCA: Right: 79 Left: 82 ECA: Right: 93 Left: 102 VERTEBRAL: Right: 30 antegrade Left: 20 antegrade Elevated flow velocities and ICA/CCA ratios have been found to correlate with increased degrees of vessel stenosis, calculated as percentage of diameter relative to a normal segment of distal ICA/CCA FINDINGS: RIGHT CAROTID: No significant stenosis is visualized. Scattered eccentric plaquing without obvious two-dimensional s tenosis The waveforms are within normal limits. LEFT CAROTID: No significant stenosis is visualized. Scattered eccentric plaquing. The waveforms are within normal limits. VERTEBRAL ARTERIES: Antegrade flow is seen in both vertebral arteries. MISCELLANEOUS: None. CONCLUSION: Normal examination other than mild atherosclerotic disease not felt to be hemodynamically significant . Israel Phillips MD on November 03, 2017 at 9:32 Board Certified Radiologist. This report was verified electronically.
[2017-11-03] MEDS: SODIUM CHLOR 0.9% 1000 ML INJ 1,000 ML IV SCH ×2 (09:44→20:11)
--- NOTE | 2017-11-03 10:19 | RADRPT ---
EXAM DATE/TIME: 11/03/2017 09:48 [facility] COMPARISON: No previous studies available for comparison. INDICATIONS : Generalized weakness. MEDICAL HISTORY : Hypertension. Carcinoma, prostate. SURGICAL HISTORY : Fusion, lumbar. glaucoma surgery ENCOUNTER: Subsequent ACUITY: 2 day PAIN SCORE: 0/10 LOCATION: cranial Please note a normal MRA of the brain does not entirely exclude the possibility of a small aneurysm, nor the possibility of distal intracranial vessel disease. TECHNIQUE: 3D time of flight MRA was performed. Source images, multiplanar STS MIP, and 3D volume MIP reconstru ctions were reviewed. FINDINGS: There is excellent visualization of the major intracranial arteries out to the second-order branch ve ssels. There is no evidence for aneurysm, and no evidence for vascular malformation. Right vertebral artery is dominant. The right posterior triple vessel is quite small. There bilateral posterior communicating arteries. I don't see any aneurysm there is some narrowing of the left poste rior cerebral artery as well. The internal carotid bifurcations are unremarkable. CONCLUSION: Narrowing involving the posterior cerebral arteries bilaterally with patent posterior communicating a rteries. No aneurysm is identified. Israel Phillips MD on November 03, 2017 at 10:16 Board Certified Radiologist. This report was verified electronically.
[2017-11-03] MEDS ORDERED: GADODIAMIDE PF 287 MG/ML 5 ML VIAL (for RAD MRI) IVCONTRAST ONE (10:30)
--- NOTE | 2017-11-03 10:36 | RADRPT ---
EXAM DATE/TIME: 11/03/2017 09:48 [facility] COMPARISON: CT BRAIN W/O CONTRAST, October 21, 2016, 10:06. CT BRAIN W/O CONTRAST, November 02, 2017, 20:05. C T BRAIN W/O CONTRAST, October 14, 2017, 3:57. INDICATIONS : Generalized weakness. CONTRAST: 13 cc Omniscan (gadodiamide) IV MEDICAL HISTORY : Hypertension. Carcinoma, prostate. SURGICAL HISTORY : Fusion, lumbar. glaucoma surgery ENCOUNTER: Subsequent ACUITY: 2 day PAIN SCORE: 0/10 LOCATION: cranial TECHNIQUE: Multiplanar, multisequence MRI of the brain was performed both prior to and following the administrat ion of paramagnetic contrast. FINDINGS: CEREBRUM: Is wedge-shaped abnormal areas of signal in the right temporoparietal region measuring 3.8 cm across has appearance of an old stroke. It is unchanged since earlier October but new since October 2016 . The ventricles are mildly prominent for age. No evidence of midline shift, mass lesion, hemorrh age or acute infarction. No extraaxial fluid collections are seen. The pituitary gland and suprasel lar cistern are normal in configuration. WHITE MATTER: No significant signal abnormalities are seen in the white matter. POSTERIOR FOSSA: The cerebellum and brainstem are intact. The 4th ventricle is midline. The cerebellopontine angle is unremarkable. The cerebellar tonsils are normal in position. DIFFUSION IMAGING: No focal areas of restricted diffusion are seen. No evidence of acute infarction. EXTRACRANIAL: The visualized portions of the orbits and paranasal sinuses are unremarkable. POST-CONTRAST: No abnormal areas of parenchymal or dural enhancement. No evidence of blood-brain barrier breakdown. CONCLUSION: Old stroke in the right temporal occipital region. No evidence of acute hemorrhage, edema or any evid ence of an acute stroke. Diffuse atrophy. Israel Phillips MD on November 03, 2017 at 10:31 Board Certified Radiologist. This report was verified electronically.
--- NOTE | 2017-11-03 12:23 | MB ---
cc: CHELSEA GARCIA DATE OF CONSULTATION 01/04/2017 HISTORY OF PRESENT ILLNESS An 87-year-old right-handed man with hypertension, hypercholesterolemia. He said he was told he had an DC at one-time. He has glaucoma and is legally blind. He does take a baby aspirin a day, so for this he will have to go to other visits because he has been here before for sepsis, elevated troponin, ataxia. On checking reports here, he has been seen by Dr. Sung a year ago with a history of prostate cancer. He was having generalized weakness. He was septic. He was on aspirin and Lovenox at the time. He was found to have a type 2 non-STEMI, DC, history of atrial fibrillation according to his note. The patient himself tells me he has been taking a baby aspirin a day and he has been falling about three times in the last several days at home. He was brought into the hospital, on CAT scan was found to have what appears to be a subacute right posterior division MCA cortically-based infarct. He was seen by Cardiology a year ago also. He was found on the floor at that time. He was noted by Cardiology to have a history of paroxysmal A-fib. He had some increased LFTs so Lipitor was held. He was put on an aspirin. Plavix was considered. He is also seen October 14 of this year, just this month earlier, with some change in mental status. A CT was done which does show what appears to be some changes around that infarct at that time on the right posterior parietal region. REVIEW OF SYSTEMS He denied any chest pain, palpitations or headache. He denied any diabetes, A-fib, Coumadin, renal, hepatic or pulmonary disease, thyroid disease, lupus, ulcer, cancer, although he has a history of prostate cancer. He denied any seizures or stroke. SOCIAL HISTORY Not a smoker or drinker. Lives with his three grandsons. FAMILY HISTORY Negative for cancer seizure or stroke. MEDICATIONS 1. Lasix. 2. 81 of aspirin. 3. Cardizem . 4. Metoprolol. 5. Eye drops. 6. Multivitamin. 7. Here he was put on 325 of aspirin per day. PHYSICAL EXAMINATION VITAL SIGNS: On exam afebrile, 58, 21, 147/73. The nurse tells me he has been in sinus rhythm. NECK: There were no carotid bruits. HEART: Regular rhythm. I do not detect a murmur. NEUROLOGICAL EXAMINATION: Pupils are equal. He is blind; he can count fingers a little bit on some vision areas in the right eye, in the left eye appears to be almost totally blind. Face was symmetric. Tongue was midline. No drift. He had normal strength in upper and lower extremities bilaterally. DTRs are 1+, symmetric. Toes are downgoing bilaterally. Pinprick is intact throughout. Double simultaneous stimuli was normal in the legs. Graphesthesia done poorly to either hand. Stereognosis was normal in the left hand. Speech is slow; he is not aphasic. He knew the month and the year. LABORATORY DATA CBC is essentially normal. Hepatitis screen has been negative in the past. Urine drug screen a year ago was normal. UA on this admission was normal. Basic metabolic profile essentially normal. GFR 63, glucose 135. LFTs are normal. CPK was normal. Troponin was negative. Total protein is normal. Cholesterol is 140. LDL is 54. Coags are normal. CBC normal. B12 year ago was normal as was his thyroid. IMAGING STUDIES CAT scan shows a subacute right infarct. Cervical spine CT was negative. Rib x-ray was negative. He had a CAT scan done on October 14 here of this year which was read as negative. Review of those films shows an area in the same area of the infarct which looks like probably was as an old infarct there, although it is not as well delineated then as it is now. He had another CAT scan done a year ago which did not show that area on the right parietal region. IMPRESSION AND RECOMMENDATIONS It appears he has had a right parietal infarct and there was some evidence of that on the October 14 CT, although it looked somewhat old at that time and now it looks like has evolved somewhat. We will check an MRI of the brain. With the A-fib, will need to be anticoagulated. If the MRI does show an acute infarct, then what I would do is recommend Coumadin for 3 months and then we could switch him to Eliquis. I note that his echocardiogram done a year ago showed an ejection fraction of 45-50 and I would recheck an echo on him but he does have a known history of A-fib and he has some history of left atrial enlargement on the prior echo with normal valves, his LA size being 46. MD PAULINA Cabrera/MARLENY /8:21 AM /11:51 AM
[2017-11-03 13:55] LABS: HEMOGLOBIN A1C 5.7 % (4.3-6.0)
--- NOTE | 2017-11-03 15:39 | EKG ---
Date Performed: 11/02/2017 Time Performed: 22:09:05 PTAGE: 87 years EKG: SINUS BRADYCARDIA MARKED LEFT AXIS DEVIATION SEPTAL MYOCARDIAL INFARCTION ABNORMAL ECG PREVIOUS TRACING : 10/14/2017 03.57 Compared to prior tracing no significant change DOCTOR: Mickey Pierre Interpretating Date/Time 11/03/2017 15:37:27
[2017-11-03] MEDS ORDERED: WARFARIN SOD 5 MG TAB PO SCH (16:00)
--- NOTE | 2017-11-03 16:06 | ECHRPT ---
Indication: cva/tia CONCLUSIONS Normal left ventricular size. The left ventricular systolic function is low normal with an estimated ejection fraction in the rang e of 50- 55%. No atrial level shunt is demonstrated by color flow Doppler interrogation. Mild mitral valve regurgitation. aortic valve sclerosis is present. Aortic valve area is 1.5 cm. Aortic valve mean gradient is 9.3 mmHg. There is mild tricuspid valve regurgitation. The estimated pulmonary arterial pressure is 32.3 mmHg. BP: 119 / 59 HR: Rhythm: MEASUREMENTS (Male / Female) Normal Values Technical Quality:Fair 2D ECHO LV Diastolic Diameter PLAX 4.3 cm 4.2 - 5.9 / 3.9 - 5.3 cm LV Systolic Diameter PLAX 3.4 cm IVS Diastolic Thickness 1.1 cm 0.6 - 1.0 / 0.6 - 0.9 cm LVPW Diastolic Thickness 0.8 cm 0.6 - 1.0 / 0.6 - 0.9 cm LV Relative Wall Thickness 0.4 RV Internal Dim ED PLAX 2.4 cm LVOT Diameter 2.0 cm M-MODE Aortic Root Diameter MM 3.6 cm LA Systolic Diameter MM 3.2 cm LA Ao Ratio MM 0.9 AV Cusp Separation MM 1.4 cm DOPPLER AV Peak Velocity 206.0 cm/s AV Peak Gradient 17.0 mmHg AV Mean Gradient 9.3 mmHg AV Velocity Time Integral 49.6 cm LVOT Peak Velocity 81.2 cm/s LVOT Peak Gradient 2.6 mmHg LVOT Velocity Time Integral 23.5 cm AV Area Cont Eq vti 1.5 cm AV Area Cont Eq pk 1.2 cm Mitral E Point Velocity 49.4 cm/s Mitral A Point Velocity 110.0 cm/s Mitral E to A Ratio 0.4 LV E' Lateral Velocity 6.8 cm/s Mitral E to LV E' Lateral Ratio 7.2 LV E' Septal Velocity 7.4 cm/s Mitral E to LV E' Septal Ratio 6.7 TR Peak Velocity 236.0 cm/s TR Peak Gradient 22.3 mmHg Right Atrial Pressure 10.0 mmHg Pulmonary Artery Systolic Pressu 32.3 mmHg Right Ventricular Systolic Press 32.3 mmHg FINDINGS LEFT VENTRICLE Normal left ventricular size. The left ventricular systolic function is low normal with an estimated ejection fraction in the rang e of 50- 55%. Doppler parameters are consistent with impaired left ventricular relaxtion (grade 1 diastolic dysfun ction). RIGHT VENTRICLE Normal right ventricular size and systolic function. LEFT ATRIUM The left atrial size is normal. RIGHT ATRIUM The right atrial size is normal. ATRIAL SEPTUM No atrial level shunt is demonstrated by color flow Doppler interrogation. AORTA The aortic root and proximal ascending aorta are normal in size on limited imaging. MITRAL VALVE Structurally normal mitral valve. Mild mitral valve regurgitation. AORTIC VALVE Cannot rule out a bicuspid aortic valve or trileaflet valve with partially fused commissure. Aortic valve sclerosis is present. Aortic valve area is 1.5 cm. Aortic valve mean gradient is 9.3 mmHg. TRICUSPID VALVE Structurally normal tricuspid valve. There is mild tricuspid valve regurgitation. The estimated pulmonary arterial pressure is 32.3 mmHg. PULMONARY VALVE No pulmonary valve regurgitation or stenosis. VESSELS The inferior vena cava is normal in size. PERICARDIUM No pericardial effusion. Walter Kline MD (Electronically Signed) Final Date:03 November 2017 16:05
[2017-11-03] MEDS: APIXABAN 5 MG TABLET PO SCH (18:20)
[2017-11-04] VITALS (7 sets, daily range): BP systolic 132–163; BP diastolic 66–74; PULSE 50–70; RESP 18–19; TEMP 97.5–98; O2SAT 96–98
[2017-11-04] MEDS: APIXABAN 5 MG TABLET PO SCH (06:11)
--- NOTE | 2017-11-04 07:12 | HHI.PR ---
Subjective Remarks some confusion overnoc slept on and off wants to go home Objective Vital Signs Date Time Temp Pulse Resp B/P (MAP) Pulse Ox O2 Delivery O2 Flow Rate FiO2 11/04/17 04:45 56 11/04/17 03:46 97.8 50 19 153/66 (95) 98 11/04/17 00:00 55 11/03/17 23:53 98.1 55 19 134/62 (86) 95 11/03/17 21:01 21 11/03/17 19:55 98.1 58 17 139/63 (88) 96 11/03/17 17:30 96.3 61 18 157/71 (99) 97 11/03/17 12:58 96.0 57 18 147/65 (92) 96 11/03/17 12:55 55 11/03/17 12:39 11/03/17 11:53 97.7 57 20 137/66 (89) 96 Room Air 11/03/17 08:02 97.6 58 21 147/73 (97) 96 Room Air I/O 11/03/17 11/03/17 11/03/17 11/04/17 11/04/17 11/04/17 07:00 15:00 23:00 07:00 15:00 23:00 Intake Total 500 ml Output Total 600 ml Balance -100 ml Intake Oral 500 ml Output Urine Total 600 ml # Voids 2 Result Diagram: 11/02/17195011/02/171950 Objective Remarks face sym 5/5 gait a little unsteady blind Assessment and Plan Assessment and Plan 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
[2017-11-04] MEDS: INSULIN ASPART SUPPLEMENTAL SCALE SQ SCH ×2 (08:00→12:00)
[2017-11-04] MEDS: SODIUM CHLORIDE 0.9% FLUSH 10 ML FLUSH IV FLUSH SCH (09:00)
--- NOTE | 2017-11-04 10:41 | HHI.FF ---
Face to Face Verification Diagnosis: (1) Physical deconditioning (2) CVA (cerebral vascular accident) (3) Chronic anticoagulation Physical Therapy Order: Evaluate and Treat, Improve ambulation, Strength and gait training Home Health Nursing Order: Medical education Signs/symptoms of disease process Medication education-adverse effect I have seen patient Dom Fernando on 11/04/17. My clinical findings support the need for the requested home health care services because: Ltd mobility - disease progression Deconditioned w/ increased weakness I certify that my clinical findings support that this patient is homebound because: Impaired cognitive ability/safety Unsteady gait/balance Camelia Spaulding MD Nov 04, 2017 10:41
[2017-11-04] MEDS ORDERED: APIX5TAB PO (10:42)
--- NOTE | 2017-11-04 10:44 | HHI.DCPOC ---
Discharge Care Plan Diagnosis: (1) Physical deconditioning (2) Chronic anticoagulation (3) CVA (cerebral vascular accident) Goals to Promote Your Health * To prevent worsening of your condition and complications * To maintain your health at the optimal level Directions to Meet Your Goals Take your medications as prescribed Follow your dietary instruction Follow activity as directed Keep your appointments as scheduled Take your immunizations and boosters as scheduled If your symptoms worsen call your PCP, if no PCP go to Urgent Care Center or Emergency Room Smoking is Dangerous to Your Health. Avoid second hand smoke Call the 24-hour hour crisis hotline for domestic abuse at Camelia Spaulding MD Nov 04, 2017 10:44
--- NOTE | 2017-11-04 10:45 | HHI.DS ---
Discharge Summary Admission Date Nov 02, 2017 at 23:05 Discharge Date: Nov 04, 2017 Admitting Diagnosis recent cva; right chest wall contusion (1) CVA (cerebral vascular accident) ICD Code: I63.9 - Cerebral infarction, unspecified Diagnosis: Principal (2) Chronic anticoagulation ICD Code: Z79.01 - custodial (current) use of anticoagulants Diagnosis: Principal (3) Physical deconditioning ICD Code: R53.81 - Other malaise Diagnosis: Principal (4) Hypertension ICD Code: I10 - Essential (primary) hypertension Diagnosis: Principal Status: Chronic Procedures See hospital course Brief History - From Admission This is an 87-year-old male past medical history hypertension, hyperlipidemia, history of CVA with no deficits, and history of prostate cancer who presented with multiple falls. Patient stated that he presented because he has been falling multiple times the past week. I asked him in regards to his rib cage that was noted in the ER physician no and patient deny any pain. He denied any imbalance or focal neurological deficits. He stated that he just feels like he needs his cane and he usually doesn't walk with his cane but does not know why. Denies any generalized weakness. Denies any visual changes or headache. Patient takes baby aspirin at home. At the moment he has no other complaints. All other review of system reviewed and negative. CBC/BMP: 11/02/17195011/02/171950 Significant Findings Laboratory Tests Test 11/02/17 19:51 11/03/17 05:47 Red Blood Count 3.87 MIL/MM3 (4.50-5.90) Hematocrit 38.8 % (39.0-51.0) Mean Corpuscular Volume 100.3 FL (80.0-100.0) Monocytes (%) (Auto) 8.3 % (0.0-8.0) Urine Urobilinogen 4.0 MG/DL (LESS THAN Urine Mucus FEW /lpf (OCC) Random Glucose 138 MG/DL (74-106) Alkaline Phosphatase 180 U/L (45-117) Chloride Level 109 MEQ/L (98-107) Estimat Glomerular Filtration Rate 63 ML/MIN (>89) Total Creatine Kinase 36 U/L (39-308) Troponin I LESS THAN 0.02 NG/ML Triglycerides Level 227 MG/DL (42-150) Imaging Last Impressions Brain MRI 11/03/17 0832 Signed Impressions: Service Date/Time: October 09:48 - CONCLUSION: Old stroke in the right temporal occipital region. No evidence of acute hemorrhage, edema or any evidence of an acute stroke. Diffuse atrophy. Israel Phillips MD Head Magnetic Resonance Angiography 11/03/17 0000 Signed Impressions: Service Date/Time: October 09:48 - CONCLUSION: Narrowing involving the posterior cerebral arteries bilaterally with patent posterior communicating arteries. No aneurysm is identified. Israel Phillips MD Carotid Artery Ultrasound 11/03/17 0000 Signed Impressions: Service Date/Time: October 08:41 - CONCLUSION: Normal examination other than mild atherosclerotic disease not felt to be hemodynamically significant. Israel Phillips MD Head CT 11/02/17 1923 Signed Impressions: Service Date/Time: Thursday, November 02, 2017 20:05 - CONCLUSION: 1. No acute findings in the brain. 2. Mild central and cortical atrophy. 3. Right MCA/[employer] watershed infarct, subacute or chronic. Darian Esteban MD Ribs X-Ray 11/02/17 0000 Signed Impressions: Service Date/Time: Thursday, November 02, 2017 21:06 - CONCLUSION: Negative right rib series. Darian Esteban MD Cervical Spine CT 11/02/17 0000 Signed Impressions: Service Date/Time: Thursday, November 02, 2017 20:05 - CONCLUSION: No acute findings in the cervical spine. Degenerative changes are similar to prior CT cervical spine 2013. Darian Esteban MD PE at Discharge GENERAL: in NAD sitting in bed eating his breakfast CARDIOVASCULAR: Regular rate and rhythm without murmurs, gallops, or rubs. RESPIRATORY: Breath sounds equal bilaterally. No accessory muscle use. GASTROINTESTINAL: Abdomen soft, non-tender, nondistended. MUSCULOSKELETAL: No cyanosis, or edema. BACK: Nontender without obvious deformity. No CVA tenderness. NEURO: AAO X 3. Cn 2-12 intact. 5 out of 5 upper and lower extremity strength. Pt update on day of discharge Follow-up for possible CVA Patient has no complaints. He is very anxious to go home. He said that he would not go to rehabilitation center if recommended. No acute events. I spoke to his daughter Ms. Wolf over the phone in regards to patient's diagnosis and management. I educated extensively on anticoagulation, eliquis that was started by neurologist. We went over the risks, benefits, and side effects. Patient also at increased risk of bleeding since he's been having multiple falls past few weeks. Per daughter patient is not motivated to do physical therapy at all and that she feels that he is deconditioned. She stated that he can be very dramatic and wants a lot of tensions from the grandson. She also stated her grandsons spoil the patient. Daughter stated that she makes medical decisions on the patient for half. Knowing the risks and benefits of Eliquis and with history of increased falls which will increase his risk of bleeding daughter wants to continue with Eliquis. Patient evaluated by physical therapy this recommended home with home health. Hospital Course This is a 87-year-old male past medical history hypertension, hyperlipidemia, history of CVA, history of prostate cancer who presented with multiple falls. Multiple falls/questionable imbalance -CT scan shows subacute versus chronic right MCA/RCA watershed infarct. -Neurologist was consulted and following Dr. Jones. -Stroke protocol was followed. -MRI shows an old infarct. Echo reviewed. Orthostatics done negative. us negative. LDL 54. -Initially Coumadin was started by neurologist and it was changed to Eliquis. -Aspirin discontinued by neurologist. -A long discussion with patient's daughter who is makes his healthcare decision in regards to diagnosis and management. She was educated extensively on Eliquis on the risks, benefits and side effects especially in a patient at increased risk or recent falls. Despite knowing the risks of increased bleeding daughter wants to continue with Eliquis. -Patient was evaluated by physical therapist and they recommended that patient go home with home health. Hypertension/hyperlipidemia/history of prostate cancer/glaucoma -Initially allow permissive hypertension but workup was negative so restarted home medication. Lasix was held since he has some normotensive reading. To be determine if Lasix can be restarted by his PCP. Pt Condition on Discharge: Stable Discharge Disposition: Disch w/ Home Health Serv Discharge Time: > 30 minutes Discharge Instructions DIET: Follow Instructions for: Heart Healthy Diet Follow up Referrals: Neurology - 2 Weeks with Mickey Young MD Neurosurgery PCP Follow-up - 1 Week New Medications: Apixaban (Eliquis) 5 Mg Tab 5 MG PO Q12H for prevent stroke, #60 TAB 0 Refills Continued Medications: Artificial Tear Opth Ointment (Lubricant Opth Ointment) 1 Oint 1 APPLIC RIGHT EYE DAILY Artificial Tear Solution Opth Drops (Artificial Tears Opth Drops) 0.1-0.3% Soln 1 DROP RIGHT EYE DAILY Brimonidine Opth Drops (Alphagan P Opth Drops) 0.15% Soln 1 DROP RIGHT EYE DAILY for Intraocular pressure, #1 BOTTLE 0 Refills Diltiazem CD 24 HR (Cardizem CD 24 HR) 180 Mg Caper 180 MG PO DAILY for afib for 30 Days, CAP Dorzolamide-Timolol Opth Drops (Cosopt Opth Drops) 22.3-6.8 Mg/Ml Soln 1 DROP RIGHT EYE BID for Glaucoma, #1 BOTTLE 0 Refills Latanoprost Opth Drops (Xalatan Opth Drops) 0.005% Drops 1 DROP RIGHT EYE HS for Glaucoma, #2.5 ML 0 Refills Metoprolol Tartrate (Metoprolol Tartrate) 25 Mg Tab 25 MG PO Q12HR for AFIB/HTN, #60 TAB 0 Refills Multiple Vitamin (Multiple Vitamin) 1 Tab 1 TAB PO DAILY for Nutritional Supplement, TAB 0 Refills Discontinued Medications: Aspirin DR (Aspirin EC) 81 Mg Tabdr 81 MG PO DAILY for heart for 30 Days, TAB Furosemide (Lasix) 40 Mg Tab 40 MG PO BID@09,18 for heart for 30 Days, TAB Additional Information Follow-up with primary care provider in regards to hospital course indeterminate Lasix needs to be restarted. Camelia Spaulding MD Nov 04, 2017 10:45
[2017-11-04] MEDS ORDERED: DILTIAZEM-CD 180 MG CAP ER PO SCH (11:00)
[2017-11-04] MEDS ORDERED: METOPROLOL TARTRATE 25 MG TAB PO SCH (11:00)
[2017-11-04] MEDS: SODIUM CHLOR 0.9% 1000 ML INJ 1,000 ML IV SCH (11:17)
[2017-11-04] MEDS ORDERED: [UNRECOGNIZED DRUG - REMARK] (11:28)
[2017-11-04] MEDS ORDERED: ACETAMINOPHEN 325 MG TAB PO PRN (12:45)
== END 2017-11-04 18:22 | disposition home or self-care (01) ==
LOC: NEPC 19:16 → NEDA 23:05 → NEDH 11-03 03:05 → NEPHCDU 11-03 12:56
PROVIDERS: ADMIT Family Medicine; ATTEND Family Medicine
DX: I10 Essential (primary) hypertension (principal); S20.211A Contusion of right front wall of thorax, initial encounter; E78.00 Pure hypercholesterolemia, unspecified; R00.1 Bradycardia, unspecified; R94.31 Abnormal electrocardiogram [ECG] [EKG]; I25.2 Old myocardial infarction; R53.1 Weakness; G93.89 Other specified disorders of brain; G31.9 Degenerative disease of nervous system, unspecified; M54.2 Cervicalgia; H54.8 Legal blindness, as defined in USA; H40.9 Unspecified glaucoma; R29.6 Repeated falls; Z79.899 Other long term (current) drug therapy; Z79.82 Long term (current) use of aspirin; Z86.73 Personal history of transient ischemic attack (TIA), and cerebral infarction without residual deficits; Z85.46 Personal history of malignant neoplasm of prostate; Z98.1 Arthrodesis status; W19.XXXA Unspecified fall, initial encounter
CPT/HCPCS: 70450; 70544; 70553; 71101; 72125; 80053; 80061; 81001; 82550; 82948; 83036; 84484; 85025; 85610; 85730; 93005; 93306; 93880; 96360; 96361; A9579; G0378; G8987-GP; G8988-GP; J7030

== ENCOUNTER 2017-11-21 13:20 | Inpatient (IN) | payer MEDICARE ==
[~2017-11-21] VITALS: Ht 175.3 cm; Wt 64.0 kg
[2017-11-21] VITALS (9 sets, daily range): BP systolic 106–168; BP diastolic 55–83; PULSE 58–87; RESP 18–22; TEMP 96.6–98.4; O2SAT 96–99
[~2017-11-21 13:20] MED LIST changes: +APIX5TAB PO; -ASPI81TA23 PO; -FURO1TAB60 PO; -MACR100C2 PO; -SENN1TAB27 PO
[2017-11-21 16:29] LABS: AUTOMATED NEUTROPHIL # 9.4 TH/MM3 (1.8-7.7); BASOPHIL # 0.1 TH/MM3 (0-0.2); BASOPHIL % 0.7 % (0.0-2.0); EOSINOPHIL # 0.1 TH/MM3 (0-0.4); EOSINOPHIL % 0.7 % (0.0-4.0); HEMATOCRIT 32.5 % (39.0-51.0); HEMOGLOBIN 10.9 GM/DL (13.0-17.0); LYMPHOCYTE # 2.1 TH/MM3 (1.0-4.8); MEAN CELL VOLUME 103.2 FL (80.0-100.0); MEAN CORPUSCULAR HEMOGLOBIN 34.5 PG (27.0-34.0); MEAN CORPUSCULAR HGB CONC 33.4 % (32.0-36.0); MEAN PLATELET VOLUME 9.4 FL (7.0-11.0); MONO % 6.3 % (0.0-8.0); MONOCYTE # 0.8 TH/MM3 (0-0.9); NEUT % 75.3 % (16.0-70.0); PLATELET COUNT 363 TH/MM3 (150-450); RED BLOOD COUNT 3.15 MIL/MM3 (4.50-5.90); RED CELL DISTRIBUTION WIDTH 14.3 % (11.6-17.2); WHITE BLOOD COUNT 12.6 TH/MM3 (4.0-11.0)
[2017-11-21 16:40] LABS: INTERNATIONAL NORMALIZED RATIO 1.4 RATIO
[2017-11-21 16:54] LABS: ALBUMIN 3.7 GM/DL (3.4-5.0); AST (GOT) 13 U/L (15-37); BICARBONATE 22.9 MEQ/L (21.0-32.0); BLOOD UREA NITROGEN 20 MG/DL (7-18); CALCIUM 9.5 MG/DL (8.5-10.1); CHLORIDE 106 MEQ/L (98-107); CREATININE 1.06 MG/DL (0.60-1.30); GLOMERULAR FILTRATION RATE 66 ML/MIN (>89); GLUCOSE,RANDOM 158 MG/DL (74-106); LIPASE 325 U/L (73-393); SODIUM (NA) 138 MEQ/L (136-145)
[2017-11-21 16:58] LABS: ALKALINE PHOSPHATASE 161 U/L (45-117); ALT (GPT) 14 U/L (12-78); TOTAL BILIRUBIN ADULT 0.8 MG/DL (0.2-1.0); TOTAL PROTEIN 7.7 GM/DL (6.4-8.2)
--- NOTE | 2017-11-21 17:25 | PD ---
HPI Chief Complaint: GI Complaint Time Seen by Provider: 16:45 Travel History International Travel<30 days: No Contact w/Intl Traveler<30days: No Traveled to known affect area: No History of Present Illness HPI This is a 87-year-old male with a history of coronary artery disease, hypertension, hyperlipidemia, who presents here with complaints of weakness and abdominal discomfort. The patient was in the waiting room when he had a large bloody bowel movement. The patient is currently taking eliquis 5 mg twice daily. He denies any chest pain, chest pressure. He denies any shortness of breath. Patient is a poor historian and unable to give clear history however he does state that he has had the abdominal pain for a few days now. PFSH Past Medical History Cancer: Yes (prostate-15 years ago) Cardiovascular Problems: Yes High Cholesterol: Yes Diabetes: No Diminished Hearing: No Gastrointestinal Disorders: No Glaucoma: Yes Genitourinary: No Hypertension: Yes Musculoskeletal: No Neurologic: No Reproductive: No Respiratory: No Influenza Vaccination: Yes Past Surgical History Eye Surgery: Yes Other Surgery: Yes (prostate cancer) Social History Alcohol Use: No Tobacco Use: No Substance Use: No Allergies-Medications (Allergen,Severity, Reaction): Coded Allergies: penicillin G (Unverified Allergy, Unknown, 11/21/17) Reported Meds & Prescriptions Reported Meds & Active Scripts Active Eliquis (Apixaban) 5 Mg Tab 5 Mg PO Q12H Cardizem CD 24 HR (Diltiazem CD 24 HR) 180 Mg Caper 180 Mg PO DAILY 30 Days Reported Metoprolol Tartrate 25 Mg Tab 25 Mg PO Q12HR Xalatan Opth Drops (Latanoprost) 0.005% Drops 1 Drop RIGHT EYE HS Multiple Vitamin 1 Tab 1 Tab PO DAILY Lubricant Opth Ointment (Artificial Tear Opth Ointment) 1 Oint 1 Applic RIGHT EYE DAILY Artificial Tears Opth Drops (Artificial Tear Solution Opth Drops) 0.1-0.3% Soln 1 Drop RIGHT EYE DAILY Cosopt Opth Drops (Dorzolamide-Timolol Opth Drops) 22.3-6.8 Mg/Ml Soln 1 Drop RIGHT EYE BID Alphagan P Opth Drops (Brimonidine Tartrate) 0.15% Soln 1 Drop RIGHT EYE DAILY Review of Systems Except as stated in HPI: all other systems reviewed are Neg General / Constitutional: No: Fever, Chills HENT: No: Headaches, Lightheadedness, Neck Stiffness, Neck Pain Cardiovascular: No: Chest Pain or Discomfort, Palpitations, Irregular Rhythm Respiratory: No: Cough, Shortness of Breath Gastrointestinal: Positive: Diarrhea, Abdominal Pain, No: Nausea, Vomiting Genitourinary: No: Dysuria, Hematuria (none reported) Musculoskeletal: Positive: Weakness (generalized), No: Pain Neurologic: Positive: Weakness (generalized), Headache (earlier, none now), No : Dizziness Physical Exam Narrative GENERAL: Elderly ill appearing gentleman SKIN: Focused skin assessment warm/dry. HEAD: Atraumatic. Normocephalic. EYES: Pupils equal and round. No scleral icterus. No injection or drainage. ENT: No nasal bleeding or discharge. Mucous membranes pale and moist. NECK: Trachea midline. Supple. CARDIOVASCULAR: Regular rate and rhythm. No murmur appreciated. RESPIRATORY: No accessory muscle use. Clear to auscultation. Breath sounds equal bilaterally. GASTROINTESTINAL: Abdomen soft, non-tender, nondistended. Subjective crampy discomfort. No rebound or guarding. No pulsatile masses. MUSCULOSKELETAL: No obvious deformities. No clubbing. No cyanosis. No edema. NEUROLOGICAL: Awake and alert. No obvious cranial nerve deficits. Motor grossly within normal limits. Normal speech. Data Data Last Documented VS Vital Signs Date Time Temp Pulse Resp B/P (MAP) Pulse Ox O2 Delivery O2 Flow Rate FiO2 11/21/17 16:43 65 20 120/83 (95) 11/21/17 13:41 96.6 98 Orders Orders Complete Blood Count With Diff (11/21/17 13:55) Comprehensive Metabolic Panel (11/21/17 13:55) Lipase (11/21/17 13:55) Prothrombin Time / Inr (Pt) (11/21/17 13:55) Act Partial Throm Time (Ptt) (11/21/17 13:55) Type And Screen (11/21/17 13:55) Red Blood Cells (Rbc) (11/21/17 16:45) Complete Blood Count With Diff (11/21/17 16:51) Ckmb (Isoenzyme) Profile (11/21/17 16:51) Troponin I (11/21/17 16:51) ^ Lab Follow Up (11/21/17 18:31) Prothrombin Complex Conc Inj (Kcentra In (11/21/17 19:00) Admit Order (Ed Use Only) (11/21/17 18:44) Labs Laboratory Tests Test 11/21/17 14:54 11/21/17 15:47 White Blood Count 15.1 TH/MM3 12.6 TH/MM3 Red Blood Count 2.95 MIL/MM3 3.15 MIL/MM3 Hemoglobin 10.1 GM/DL 10.9 GM/DL Hematocrit 31.1 % 32.5 % Mean Corpuscular Volume 105.2 FL 103.2 FL Mean Corpuscular Hemoglobin 34.1 PG 34.5 PG Mean Corpuscular Hemoglobin Concent 32.4 % 33.4 % Red Cell Distribution Width 14.5 % 14.3 % Platelet Count 386 TH/MM3 363 TH/MM3 Mean Platelet Volume 9.4 FL 9.4 FL Neutrophils (%) (Auto) 63.8 % 75.3 % Lymphocytes (%) (Auto) 27.9 % 17.0 % Monocytes (%) (Auto) 6.6 % 6.3 % Eosinophils (%) (Auto) 0.5 % 0.7 % Basophils (%) (Auto) 1.2 % 0.7 % Neutrophils # (Auto) 9.6 TH/MM3 9.4 TH/MM3 Lymphocytes # (Auto) 4.2 TH/MM3 2.1 TH/MM3 Monocytes # (Auto) 1.0 TH/MM3 0.8 TH/MM3 Eosinophils # (Auto) 0.1 TH/MM3 0.1 TH/MM3 Basophils # (Auto) 0.2 TH/MM3 0.1 TH/MM3 CBC Comment DIFF FINAL DIFF FINAL Differential Comment Total Creatine Kinase 84 U/L Troponin I LESS THAN 0.02 NG/ML Prothrombin Time 14.0 SEC Prothromb Time International Ratio 1.4 RATIO Activated Partial Thromboplast Time 35.3 SEC Blood Urea Nitrogen 20 MG/DL Creatinine 1.06 MG/DL Random Glucose 158 MG/DL Total Protein 7.7 GM/DL Albumin 3.7 GM/DL Calcium Level 9.5 MG/DL Alkaline Phosphatase 161 U/L Aspartate Amino Transf (AST/SGOT) 13 U/L Alanine Aminotransferase (ALT/SGPT) 14 U/L Total Bilirubin 0.8 MG/DL Sodium Level 138 MEQ/L Potassium Level 4.3 MEQ/L Chloride Level 106 MEQ/L Carbon Dioxide Level 22.9 MEQ/L Anion Gap 9 MEQ/L Estimat Glomerular Filtration Rate 66 ML/MIN Lipase 325 U/L MDM Medical Decision Making Medical Screen Exam Complete: Yes Emergency Medical Condition: Yes Differential Diagnosis Diverticular bleed versus non-diverticular bleed versus brisk upper GI bleed. Narrative Course 87-year-old male presents today with complaints of weakness and GI bleed. The patient had a large bloody bowel movement in triage. The patient is anticoagulated on eliquis. He has a history of atrial fibrillation. He's been typed and crossed for 4 units. His hemoglobin is in the tens. A repeat 2 hours later was sent off it still remains in the tens. Given his eliquis and a large amount of bleeding, he'll be admitted to the intensive care unit. The case was discussed with Dr. Loyola, bacteriologist soil, who agreed to admit the patient to the intensive care unit. Dr. Wong as ordered the [facility] anticoagulation order set. Critical Care Narrative Aggregate critical care time was 45 minutes. Time to perform other separately billable procedures was not included in the critical care time. My time did not include minutes spent treating any other patients simultaneously or on activities that did not directly contribute to the patient's treatment. The services I provided to this patient were to treat and/or prevent clinically significant deterioration that could result in: I provided critical care services requiring my management, as noted below: Chart data review, documentation time, medication orders and management, vital sign assessments/reviewing monitor data, ordering and reviewing lab tests, ordering and interpreting/reviewing x-rays and diagnostic studies, care of the patient and discussion of the patient with the admitting physicians. Diagnosis Primary Impression: Gastrointestinal hemorrhage Additional Impressions: Anticoagulated History of atrial fibrillation Admitting Information Admitting Physician Requests: Admit Rah Booth MD Nov 21, 2017 17:25
[2017-11-21 17:32] LABS: AUTOMATED NEUTROPHIL # 9.6 TH/MM3 (1.8-7.7); BASOPHIL # 0.2 TH/MM3 (0-0.2); BASOPHIL % 1.2 % (0.0-2.0); EOSINOPHIL # 0.1 TH/MM3 (0-0.4); EOSINOPHIL % 0.5 % (0.0-4.0); HEMATOCRIT 31.1 % (39.0-51.0); HEMOGLOBIN 10.1 GM/DL (13.0-17.0); LYMPH % 27.9 % (9.0-44.0); LYMPHOCYTE # 4.2 TH/MM3 (1.0-4.8); MEAN CELL VOLUME 105.2 FL (80.0-100.0); MEAN CORPUSCULAR HEMOGLOBIN 34.1 PG (27.0-34.0); MEAN CORPUSCULAR HGB CONC 32.4 % (32.0-36.0); MEAN PLATELET VOLUME 9.4 FL (7.0-11.0); MONO % 6.6 % (0.0-8.0); NEUT % 63.8 % (16.0-70.0); PLATELET COUNT 386 TH/MM3 (150-450); RED BLOOD COUNT 2.95 MIL/MM3 (4.50-5.90); RED CELL DISTRIBUTION WIDTH 14.5 % (11.6-17.2); WHITE BLOOD COUNT 15.1 TH/MM3 (4.0-11.0)
[2017-11-21 17:58] LABS: TROPONIN I LESS THAN 0.02 NG/ML (0.02-0.05)
[2017-11-21] MEDS ORDERED: PROTHROMBIN COMPLEX CONC INJ 1,500 UNITS in SYRINGE/BAG 1 EA IV ONE (19:00)
[2017-11-21] MEDS ORDERED: SODIUM CHLORID 0.9% 500 ML INJ 500 ML IV SCH (19:15)
[2017-11-21] MEDS ORDERED: SODIUM CHLORID 0.9% 500 ML INJ 500 ML IV ONE (19:15)
[2017-11-21] MEDS ORDERED: LACTULOSE SYRUP 20 GM/30 ML CUP PO PRN (20:00)
[2017-11-21] MEDS ORDERED: MISCELLANEOUS NURSING INFORMATION XX SCH (20:00)
[2017-11-21] MEDS ORDERED: SENNOSIDES 8.6 MG TAB PO PRN (20:00)
[2017-11-21] MEDS ORDERED: ONDANSETRON HCL 4 MG/2 ML VIAL IV PUSH PRN (20:00)
[2017-11-21] MEDS ORDERED: CHLORHEXIDINE GLUCONATE 2 % 1 PACK (2 CLOTHS) TOP PRN (20:00)
[2017-11-21] MEDS ORDERED: MORPHINE SULFATE 2 MG/ML INJ IV PUSH PRN (20:00)
[2017-11-21] MEDS ORDERED: SODIUM CHLORIDE 0.9% FLUSH 10 ML FLUSH IV FLUSH PRN (20:00)
[2017-11-21] MEDS ORDERED: ACETAMINOPHEN 325 MG TAB PO PRN (20:00)
[2017-11-21] MEDS ORDERED: RESP: ALBUTEROL 2.5 MG/IPRATROPIUM 0.5 MG NEB (PRN) INH (20:00)
[2017-11-21] MEDS ORDERED: BISACODYL 10 MG SUPP RECTAL PRN (20:00)
[2017-11-21] MEDS ORDERED: ZOLPIDEM TARTRATE 5 MG TAB PO PRN (20:00)
[2017-11-21] MEDS ORDERED: MAGNESIUM HYDROXIDE SUSP 30 ML CUP PO PRN (20:00)
--- NOTE | 2017-11-21 20:07 | HHI.HP ---
HPI Service Critical Care Medicine Primary Care Physician Rodrigo Ruiz MD Admission Diagnosis gi bleed, anticoagulated, CAD, Diagnosis: Travel History International Travel<30 Days: No Contact w/Intl Traveler <30 Da: No Traveled to Known Affected Are: No History of Present Illness 87-year-old male with a history of coronary artery disease, hypertension, hyperlipidemia, presents with complaints of weakness and abdominal discomfort. The patient was in the waiting room when he had a large bloody bowel movement. The patient is currently taking eliquis 5 mg twice daily. He denies any chest pain, chest pressure. He denies any shortness of breath. Review of Systems Constitutional: COMPLAINS OF: Diaphoretic episodes, Dizziness, DENIES: Fatigue , Fever, Weight gain, Weight loss, Chills, Change in appetite, Night Sweats Endocrine: DENIES: Heat/cold intolerance, Polydipsia, Polyuria, Polyphagia Eyes: DENIES: Blurred vision, Diplopia, Eye inflammation, Eye pain, Vision loss , Photosensitivity, Double Vision Ears, nose, mouth, throat: DENIES: Tinnitus, Hearing loss, Vertigo, Nasal discharge, Oral lesions, Throat pain, Hoarseness, Ear Pain, Running Nose, Epistaxis, Sinus Pain, Toothache, Odynophagia Respiratory: DENIES: Apneas, Cough, Snoring, Wheezing, Hemoptysis, Sputum production, Shortness of breath Cardiovascular: DENIES: Chest pain, Palpitations, Syncope, Dyspnea on Exertion , PND, Lower Extremity Edema, Orthopnea, Claudication Gastrointestinal: COMPLAINS OF: Abdominal pain, Bloody stools, DENIES: Black stools, Constipation, Diarrhea, Nausea, Vomiting, Difficulty Swallowing, Anorexia Genitourinary: DENIES: Sexual dysfunction, Urinary frequency, Urinary incontinence, Urgency, Hematuria, Dysuria, Nocturia, Penile Discharge, Testicular Pain, Testicular Swelling Musculoskeletal: DENIES: Joint pain, Muscle aches, Stiffness, Joint Swelling, Back pain, Neck pain Integumentary: DENIES: Abnormal pigmentation, Nail changes, Pruritus, Rash Hematologic/lymphatic: DENIES: Bruising, Lymphadenopathy Immunologic/allergic: DENIES: Eczema, Urticaria Neurologic: COMPLAINS OF: Abnormal gait, Poor Balance, DENIES: Headache, Localized weakness, Paresthesias, Seizures, Speech Problems, Tremor Psychiatric: DENIES: Anxiety, Confusion, Mood changes, Depression, Hallucinations, Agitation, Suicidal Ideation, Homicidal Ideation, Delusions Past Family Social History Allergies: Coded Allergies: penicillin G (Unverified Allergy, Unknown, 11/21/17) Past Medical History History of CVA Hypertension History of prostate cancer Hyperlipidemia Glaucoma Past Surgical History Multiple back surgery Surgery on prostate Eye surgery Reported Medications Reported Meds & Active Scripts Active Eliquis (Apixaban) 5 Mg Tab 5 Mg PO Q12H Cardizem CD 24 HR (Diltiazem CD 24 HR) 180 Mg Caper 180 Mg PO DAILY 30 Days Reported Metoprolol Tartrate 25 Mg Tab 25 Mg PO Q12HR Xalatan Opth Drops (Latanoprost) 0.005% Drops 1 Drop RIGHT EYE HS Multiple Vitamin 1 Tab 1 Tab PO DAILY Lubricant Opth Ointment (Artificial Tear Opth Ointment) 1 Oint 1 Applic RIGHT EYE DAILY Artificial Tears Opth Drops (Artificial Tear Solution Opth Drops) 0.1-0.3% Soln 1 Drop RIGHT EYE DAILY Cosopt Opth Drops (Dorzolamide-Timolol Opth Drops) 22.3-6.8 Mg/Ml Soln 1 Drop RIGHT EYE BID Alphagan P Opth Drops (Brimonidine Tartrate) 0.15% Soln 1 Drop RIGHT EYE DAILY Active Ordered Medications Current Medications Medications (Trade) Dose Ordered Sig/Germain Route PRN Reason Start Time Stop Time Status Last Admin Dose Admin Brimonidine Tartrate (Alphagan P 0.15% Opth Soln) 1 drop DAILY RIGHT EYE 11/22/17 09:00 Dorzolamide/ Timolol (Cosopt 2-0.5% Opth Soln) 1 drop BID RIGHT EYE 11/21/17 21:00 Latanoprost (Xalatan 0.005% Opth Soln) 1 drop HS RIGHT EYE 11/21/17 21:00 Artificial Tears (Lacrilube Opht Oint) 1 applic DAILY RIGHT EYE 11/22/17 09:00 Artificial Tears (Tears Naturale Opth Soln) 1 drop DAILY RIGHT EYE 11/22/17 09:00 Multivitamins (Theragran) 1 tab DAILY PO 11/22/17 09:00 Sodium Chloride 1,000 ml @ 124 mls/hr Q8H4M IV 11/21/17 20:00 11/21/17 20:24 Sodium Chloride (NS Flush) 2 ml UNSCH PRN IV FLUSH FLUSH AFTER USING IV ACCESS 11/21/17 20:00 Sodium Chloride (NS Flush) 2 ml BID IV FLUSH 11/21/17 21:00 Acetaminophen (Tylenol) 650 mg Q6H PRN PO PAIN 1-5 AND/OR FEVER >101F 11/21/17 20:00 Morphine Sulfate (Morphine Inj) 2 mg Q2H PRN IV PUSH PAIN SCALE 6 TO 10 11/21/17 20:00 Pantoprazole Sodium (Protonix Inj) 40 mg Q12H IV PUSH 11/21/17 20:00 11/21/17 20:24 Ondansetron HCl (Zofran Inj) 4 mg Q6H PRN IV PUSH NAUSEA OR VOMITING 11/21/17 20:00 Zolpidem Tartrate (Ambien) 5 mg HS PRN PO INSOMNIA 11/21/17 20:00 Albuterol/ Ipratropium (Duoneb Neb) 1 ampule Q2HR NEB PRN INH WHEEZING 11/21/17 20:00 Miscellaneous Information 1 Q361D XX 11/21/17 20:00 Chlorhexidine Gluconate (Chlorhexidine 2% Cloth) 3 pack Taper DAILY@04 TOP 11/22/17 04:00 11/18/18 03:59 Chlorhexidine Gluconate (Chlorhexidine 2% Cloth) 3 pack UNSCH PRN TOP HYGIENIC CARE 11/21/17 20:00 Senna/Docusate Sodium (Kisha-Colace) 1 tab BID PO 11/21/17 21:00 Magnesium Hydroxide (Milk Of Magnesia Liq) 30 ml Q12H PRN PO Mild constipation 11/21/17 20:00 Sennosides (Senokot) 17.2 mg Q12H PRN PO Moderate constipation 11/21/17 20:00 Bisacodyl (Dulcolax Supp) 10 mg DAILY PRN RECTAL SEVERE CONSITIPATION 11/21/17 20:00 Lactulose (Lactulose Liq) 30 ml DAILY PRN PO SEVERE CONSITIPATION 11/21/17 20:00 Family History No family history significant for coronary artery disease or malignancy Social History He lives with his grandson, no alcohol, tobacco, or illicit drug abuse Physical Exam Vital Signs Vital Signs Date Time Temp Pulse Resp B/P (MAP) Pulse Ox O2 Delivery O2 Flow Rate FiO2 11/21/17 16:45 70 18 168/69 (102) 99 Room Air 11/21/17 16:43 65 20 120/83 (95) 11/21/17 14:47 87 22 109/55 (73) 11/21/17 14:46 106/57 (73) 11/21/17 13:41 96.6 76 18 115/61 (79) 98 Physical Exam GENERAL: Elderly ill appearing gentleman SKIN: Focused skin assessment warm/dry. HEAD: Atraumatic. Normocephalic. EYES: Pupils equal and round. No scleral icterus. No injection or drainage. ENT: No nasal bleeding or discharge. Mucous membranes pale and moist. NECK: Trachea midline. Supple. CARDIOVASCULAR: Regular rate and rhythm. No murmur appreciated. RESPIRATORY: No accessory muscle use. Clear to auscultation. Breath sounds equal bilaterally. GASTROINTESTINAL: Abdomen soft, non-tender, nondistended. Subjective crampy discomfort. No rebound or guarding. No pulsatile masses. MUSCULOSKELETAL: No obvious deformities. No clubbing. No cyanosis. No edema. NEUROLOGICAL: Awake and alert. No obvious cranial nerve deficits. Motor grossly within normal limits. Normal speech. Laboratory Laboratory Tests Test 11/21/17 14:54 11/21/17 15:47 White Blood Count 15.1 12.6 Red Blood Count 2.95 3.15 Hemoglobin 10.1 10.9 Hematocrit 31.1 32.5 Mean Corpuscular Volume 105.2 103.2 Mean Corpuscular Hemoglobin 34.1 34.5 Mean Corpuscular Hemoglobin Concent 32.4 33.4 Red Cell Distribution Width 14.5 14.3 Platelet Count 386 363 Mean Platelet Volume 9.4 9.4 Neutrophils (%) (Auto) 63.8 75.3 Lymphocytes (%) (Auto) 27.9 17.0 Monocytes (%) (Auto) 6.6 6.3 Eosinophils (%) (Auto) 0.5 0.7 Basophils (%) (Auto) 1.2 0.7 Neutrophils # (Auto) 9.6 9.4 Lymphocytes # (Auto) 4.2 2.1 Monocytes # (Auto) 1.0 0.8 Eosinophils # (Auto) 0.1 0.1 Basophils # (Auto) 0.2 0.1 CBC Comment DIFF FINAL DIFF FINAL Differential Comment Total Creatine Kinase 84 Troponin I LESS THAN 0.02 Prothrombin Time 14.0 Prothromb Time International Ratio 1.4 Activated Partial Thromboplast Time 35.3 Blood Urea Nitrogen 20 Creatinine 1.06 Random Glucose 158 Total Protein 7.7 Albumin 3.7 Calcium Level 9.5 Alkaline Phosphatase 161 Aspartate Amino Transf (AST/SGOT) 13 Alanine Aminotransferase (ALT/SGPT) 14 Total Bilirubin 0.8 Sodium Level 138 Potassium Level 4.3 Chloride Level 106 Carbon Dioxide Level 22.9 Anion Gap 9 Estimat Glomerular Filtration Rate 66 Lipase 325 Result Diagram: 11/21/17 1547 11/21/17 1547 Septic Shock Reassessment Septic shock perfusion: reassessment completed Caprini VTE Risk Assessment Caprini VTE Risk Assessment: Mod/High Risk (score >= 2) VTE Pharm Contraindication: Hemorrhage Caprini Risk Assessment Model Point Value = 1 Point Value = 2 Point Value = 3 Point Value = 5 Age 41-60 Minor surgery BMI > 25 kg/m2 Swollen legs Varicose veins or History of unexplained or recurrent spontaneous Oral contraceptives or hormone replacement Sepsis (< 1 month) Serious lung disease, including pneumonia (< 1 month) Abnormal pulmonary function Acute myocardial infarction Congestive heart failure (< 1 month) History of inflammatory bowel disease Medical patient at bed rest Age 61-74 Arthroscopic surgery Major open surgery (> 45 min) Laparoscopic surgery (> 45 min) Malignancy Confined to bed (> 72 hours) Immobilizing plaster cast Central venous access Age >= 75 History of VTE Family history of VTE Factor V Leiden Prothrombin [id number] Lupus anticoagulant Anticardiolipin antibodies Elevated serum homocysteine Heparin-induced thrombocytopenia Other congenital or acquired thrombophilia Stroke (< 1 month) Elective arthroplasty Hip, pelvis, or leg fracture Acute spinal cord injury (< 1 month) Prophylaxis Regimen Total Risk Factor Score Risk Level Prophylaxis Regimen 0-1 Low Early ambulation 2 Moderate Order ONE of the following: *Sequential Compression Device (SCD) *Heparin 5000 units SQ BID 3-4 Higher Order ONE of the following medications: *Heparin 5000 units SQ TID *Enoxaparin/Lovenox 40 mg SQ daily (WT < 150 kg, CrCl > 30 mL/min) *Enoxaparin/Lovenox 30 mg SQ daily (WT < 150 kg, CrCl > 10-29 mL/min) *Enoxaparin/Lovenox 30 mg SQ BID (WT < 150 kg, CrCl > 30 mL/min) AND/OR *Sequential Compression Device (SCD) 5 or more Highest Order ONE of the following medications: *Heparin 5000 units SQ TID (Preferred with Epidurals) *Enoxaparin/Lovenox 40 mg SQ daily (WT < 150 kg, CrCl > 30 mL/min) *Enoxaparin/Lovenox 30 mg SQ daily (WT < 150 kg, CrCl > 10-29 mL/min) *Enoxaparin/Lovenox 30 mg SQ BID (WT < 150 kg, CrCl > 30 mL/min) AND *Sequential Compression Device (SCD) Assessment and Plan Assessment and Plan GI bleed - Kcentra per Eliquis reversal protocol - Series of H&H - ICU admission - Protonix IV twice a day - Gastroenterology consultation Anemia - Blood loss anemia - Monitor H&H - Transfuse for hemoglobin less than 7 History of CVA - No antiplatelet medication due to above - Neuro checks per unit protocol Hypertension - Hold antihypertensive meds due to active GI bleed - Telemetry - Start when necessary meds if indicated Hyperlipidemia - Atorvastatin when by mouth Glaucoma - Brimonidine Tartrate - Dorzolamide/ Timolol - Latanoprost - Artificial Tears DVT GI prophylaxis - Teds SCDs - No pharmacological DVT prophylaxis due to active GI bleed - Protonix IV twice a day Critical Care: The total critical care time was 35 minutes. Time to perform other separately billable procedures was not included in the critical care time. Theron Loyola MD Nov 21, 2017 20:07
[2017-11-21] MEDS: SODIUM CHLOR 0.9% 1000 ML INJ 1,000 ML IV SCH (20:24)
[2017-11-21] MEDS: PANTOPRAZOLE SODIUM 40 MG VIAL IV PUSH SCH (20:24)
[2017-11-21] MEDS: SODIUM CHLORIDE 0.9% FLUSH 10 ML FLUSH IV FLUSH SCH (20:49)
[2017-11-21] MEDS: DOCUSATE SODIUM 50 MG/SENNA 8.6 MG TAB PO SCH (20:49)
[2017-11-21] MEDS: LATANOPROST 0.005% OPHT SOLN 2.5 ML BTL RIGHT EYE SCH (21:00)
[2017-11-21] MEDS: DORZOLAMIDE/TIMOLOL OPTH SOLN 10 ML BTL RIGHT EYE SCH (21:00)
[2017-11-22] VITALS (20 sets, daily range): BP systolic 107–145; BP diastolic 54–85; PULSE 53–79; RESP 18; TEMP 98.2–98.9; O2SAT 93–100
[2017-11-22 00:39] LABS: HEMATOCRIT 25.8 % (39.0-51.0); HEMOGLOBIN 8.4 GM/DL (13.0-17.0)
[2017-11-22 00:46] LABS: INTERNATIONAL NORMALIZED RATIO 1.2 RATIO
[2017-11-22] MEDS: CHLORHEXIDINE GLUCONATE 2 % 1 PACK (2 CLOTHS) TOP SCH (04:00)
[2017-11-22] MEDS: SODIUM CHLOR 0.9% 1000 ML INJ 1,000 ML IV SCH ×3 (04:04→23:02)
[2017-11-22 05:05] LABS: AUTOMATED NEUTROPHIL # 4.4 TH/MM3 (1.8-7.7); BASOPHIL # 0.1 TH/MM3 (0-0.2); BASOPHIL % 1.1 % (0.0-2.0); EOSINOPHIL # 0.1 TH/MM3 (0-0.4); EOSINOPHIL % 1.6 % (0.0-4.0); HEMATOCRIT 23.9 % (39.0-51.0); HEMOGLOBIN 8.2 GM/DL (13.0-17.0); LYMPH % 24.6 % (9.0-44.0); LYMPHOCYTE # 1.7 TH/MM3 (1.0-4.8); MEAN CELL VOLUME 102.8 FL (80.0-100.0); MEAN CORPUSCULAR HEMOGLOBIN 35.1 PG (27.0-34.0); MEAN CORPUSCULAR HGB CONC 34.2 % (32.0-36.0); MEAN PLATELET VOLUME 9.4 FL (7.0-11.0); MONOCYTE # 0.6 TH/MM3 (0-0.9); NEUT % 63.7 % (16.0-70.0); PLATELET COUNT 254 TH/MM3 (150-450); RED BLOOD COUNT 2.32 MIL/MM3 (4.50-5.90); RED CELL DISTRIBUTION WIDTH 14.5 % (11.6-17.2); WHITE BLOOD COUNT 6.9 TH/MM3 (4.0-11.0)
[2017-11-22 05:28] LABS: ALBUMIN 2.9 GM/DL (3.4-5.0); ALKALINE PHOSPHATASE 120 U/L (45-117); ALT (GPT) 12 U/L (12-78); AST (GOT) 9 U/L (15-37); BICARBONATE 21.8 MEQ/L (21.0-32.0); BLOOD UREA NITROGEN 21 MG/DL (7-18); CHLORIDE 111 MEQ/L (98-107); CREATININE 0.77 MG/DL (0.60-1.30); GLOMERULAR FILTRATION RATE 96 ML/MIN (>89); GLUCOSE,RANDOM 112 MG/DL (74-106); MAGNESIUM 2.3 MG/DL (1.5-2.5); PHOSPHORUS 3.3 MG/DL (2.5-4.9); SODIUM (NA) 142 MEQ/L (136-145); TOTAL BILIRUBIN ADULT 0.7 MG/DL (0.2-1.0); TOTAL PROTEIN 5.7 GM/DL (6.4-8.2)
[2017-11-22] MEDS: SODIUM CHLORIDE 0.9% FLUSH 10 ML FLUSH IV FLUSH SCH ×2 (08:43→20:17)
[2017-11-22] MEDS: PANTOPRAZOLE SODIUM 40 MG VIAL IV PUSH SCH ×2 (08:43→20:17)
[2017-11-22] MEDS: MULTIVITAMIN TAB PO SCH (09:00)
[2017-11-22] MEDS: DOCUSATE SODIUM 50 MG/SENNA 8.6 MG TAB PO SCH ×2 (09:00→20:27)
--- NOTE | 2017-11-22 09:14 | HHI.CCPN ---
Subjective Remarks/Hospital Course 87-year-old male with a history of coronary artery disease, hypertension, hyperlipidemia, presents with complaints of weakness and abdominal discomfort. The patient was in the waiting room when he had a large bloody bowel movement. The patient is currently taking eliquis 5 mg twice daily. He denies any chest pain, chest pressure. He denies any shortness of breath. Subjective: 11/22: Patient hemodynamically stable. Hemoglobin stable. The patient is status post Eliquis reversal based on hospital protocol with Radha .Patient continues on Protonix BID. No additional melanotic stools throughout the night. Patient denies any abdominal discomfort this morning. Patient expelling flatus. GI has been consulted awaiting recommendations. Objective Vital Signs Date Time Temp Pulse Resp B/P (MAP) Pulse Ox O2 Delivery O2 Flow Rate FiO2 11/22/17 08:00 63 11/22/17 07:00 98.3 18 107/54 (71) 94 11/21/17 21:00 Room Air Intake and Output 11/22/17 11/22/17 11/23/17 08:00 16:00 00:00 Intake Total 1085 ml Output Total 200 ml Balance 885 ml Result Diagram: 11/22/17 0338 11/22/17 0338 Objective Remarks GENERAL: Elderly ill appearing gentleman in no apparent distress SKIN: Focused skin assessment warm/dry. HEAD: Atraumatic. Normocephalic. EYES: Pupils equal and round. No scleral icterus. No injection or drainage. ENT: No nasal bleeding or discharge. Mucous membranes pale and moist. NECK: Trachea midline. Supple. CARDIOVASCULAR: Regular rate and rhythm. No murmur appreciated. RESPIRATORY: No accessory muscle use. Clear to auscultation. Breath sounds equal bilaterally. GASTROINTESTINAL: Abdomen soft, non-tender, nondistended. Subjective crampy discomfort. No rebound or guarding. No pulsatile masses. MUSCULOSKELETAL: No obvious deformities. No clubbing. No cyanosis. No edema. NEUROLOGICAL: GCS 15 .Awake and alert. No obvious cranial nerve deficits. Motor grossly within normal limits. Normal speech. A/P Assessment and Plan GI bleed - Radha per Eliquis reversal protocol on 11/21 - Series of H&H - Protonix IV twice a day - Gastroenterology consultation- F/U recommendations -Obtain nothing by mouth status -See normal saline at 124 cc/hr Acute Blood Loss Anemia - Monitor H&H serial - Transfuse for hemoglobin less than 7 History of CVA - No antiplatelet medication due to above - Neuro checks per unit protocol Hypertension - Hold antihypertensive meds due to active GI bleed - Telemetry - Start when necessary meds if indicated Hyperlipidemia - Atorvastatin when by mouth Glaucoma - Brimonidine Tartrate - Dorzolamide/ Timolol - Latanoprost - Artificial Tears DVT GI prophylaxis - Teds SCDs - No pharmacological DVT prophylaxis due to active GI bleed - Protonix IV twice a day Level 2 [facility]. GI has been consulted follow-up recommendations. Physician Rosemary Perrin MD Nov 22, 2017 09:14
[2017-11-22] MEDS: DORZOLAMIDE/TIMOLOL OPTH SOLN 10 ML BTL RIGHT EYE SCH ×2 (09:24→20:17)
[2017-11-22] MEDS: BRIMONIDINE TARTRATE 0.15% OPHT SOLN 5 ML BTL RIGHT EYE SCH (09:24)
[2017-11-22] MEDS: ARTIFICIAL TEARS OPTH OINT 3.5 APPLIC/3.5 GM TUBO RIGHT EYE SCH (09:24)
[2017-11-22] MEDS: ARTIFICIAL TEARS OPTH SOLN 15 ML BTL RIGHT EYE SCH (09:24)
[2017-11-22 11:41] LABS: HEMATOCRIT 21.8 % (39.0-51.0); HEMOGLOBIN 7.3 GM/DL (13.0-17.0)
--- NOTE | 2017-11-22 14:40 | PD.CONS ---
HPI History of Present Illness This is a 87 year old with dementia, CAD, HTN who presented to the hospital per EMR with complaint of weakness, fatigue, and he had a loose bloody BM on presentation to ER. he takes Eliquis, s/p Kcentra admin. Per pts daughter he has been having diarrhea for real last few days which is unusual per him. Nursing staff reports rectal bleeding over night. None seen today. No prior hx GIB. per EMR he had EGD/colonoscopy 2014 and EGD found multiple superficial ulcers duodenum and antrum, colonoscopy showed diverticulosis and poor prep. No report of melena or hematemesis. He says his abdomen "doesn't hurt too bad. " Pt poor historian, hx obtained from EMR and pts daughter who is POA. (Estefania Peter) PFSH Past Medical History CAD CVA Past Surgical History back surgery prostate surgery eye surgery (Estefania Peter) Coded Allergies: penicillin G (Unverified Allergy, Unknown, 11/21/17) Family History unk Social History per EMR no toxic habits (Estefania Peter) Review of Systems Gastrointestinal: DENIES: Abdominal pain, Nausea otherwise noncontributory (Estefania Peter) GI Exam Vitals I&O Vital Signs Date Time Temp Pulse Resp B/P (MAP) Pulse Ox O2 Delivery O2 Flow Rate FiO2 11/22/17 14:00 56 11/22/17 12:00 56 11/22/17 11:00 98.4 69 18 125/85 (98) 94 11/22/17 10:00 56 11/22/17 08:00 63 11/22/17 07:00 98.3 62 18 107/54 (71) 94 11/22/17 06:00 67 11/22/17 04:00 64 11/22/17 03:00 98.9 79 18 120/57 (78) 93 11/22/17 02:00 64 11/22/17 00:00 74 11/21/17 23:00 98.4 58 18 122/56 (78) 96 11/21/17 23:00 58 11/21/17 22:30 98.4 11/21/17 22:14 11/21/17 21:00 59 18 141/72 (95) 99 Room Air 11/21/17 19:00 66 18 144/70 (94) 99 Room Air 11/21/17 16:45 70 18 168/69 (102) 99 Room Air 11/21/17 16:43 65 20 120/83 (95) 11/21/17 14:47 87 22 109/55 (73) 11/21/17 14:46 106/57 (73) I/O 11/21/17 11/21/17 11/21/17 11/22/17 11/22/17 11/22/17 07:00 15:00 23:00 07:00 15:00 23:00 Intake Total 1085 ml Output Total 200 ml Balance 885 ml Intake Oral 0 ml IV Total 1085 ml Output Urine Total 200 ml # Bowel Movements 2 Laboratory Test 11/21/17 14:54 11/21/17 15:47 11/22/17 00:08 11/22/17 00:18 White Blood Count 15.1 TH/MM3 12.6 TH/MM3 Red Blood Count 2.95 MIL/MM3 3.15 MIL/MM3 Hemoglobin 10.1 GM/DL 10.9 GM/DL 8.4 GM/DL Hematocrit 31.1 % 32.5 % 25.8 % Mean Corpuscular Volume 105.2 FL 103.2 FL Mean Corpuscular Hemoglobin 34.1 PG 34.5 PG Mean Corpuscular Hemoglobin Concent 32.4 % 33.4 % Red Cell Distribution Width 14.5 % 14.3 % Platelet Count 386 TH/MM3 363 TH/MM3 Mean Platelet Volume 9.4 FL 9.4 FL Neutrophils (%) (Auto) 63.8 % 75.3 % Lymphocytes (%) (Auto) 27.9 % 17.0 % Monocytes (%) (Auto) 6.6 % 6.3 % Eosinophils (%) (Auto) 0.5 % 0.7 % Basophils (%) (Auto) 1.2 % 0.7 % Neutrophils # (Auto) 9.6 TH/MM3 9.4 TH/MM3 Lymphocytes # (Auto) 4.2 TH/MM3 2.1 TH/MM3 Monocytes # (Auto) 1.0 TH/MM3 0.8 TH/MM3 Eosinophils # (Auto) 0.1 TH/MM3 0.1 TH/MM3 Basophils # (Auto) 0.2 TH/MM3 0.1 TH/MM3 CBC Comment DIFF FINAL DIFF FINAL Differential Comment Total Creatine Kinase 84 U/L 26 U/L Troponin I LESS THAN 0.02 NG/ML Prothrombin Time 14.0 SEC 12.0 SEC Prothromb Time International Ratio 1.4 RATIO 1.2 RATIO Activated Partial Thromboplast Time 35.3 SEC Blood Urea Nitrogen 20 MG/DL Creatinine 1.06 MG/DL Random Glucose 158 MG/DL Total Protein 7.7 GM/DL Albumin 3.7 GM/DL Calcium Level 9.5 MG/DL Alkaline Phosphatase 161 U/L Aspartate Amino Transf (AST/SGOT) 13 U/L Alanine Aminotransferase (ALT/SGPT) 14 U/L Total Bilirubin 0.8 MG/DL Sodium Level 138 MEQ/L Potassium Level 4.3 MEQ/L Chloride Level 106 MEQ/L Carbon Dioxide Level 22.9 MEQ/L Anion Gap 9 MEQ/L Estimat Glomerular Filtration Rate 66 ML/MIN Lipase 325 U/L Test 11/22/17 03:38 11/22/17 11:24 White Blood Count 6.9 TH/MM3 Red Blood Count 2.32 MIL/MM3 Hemoglobin 8.2 GM/DL 7.3 GM/DL Hematocrit 23.9 % 21.8 % Mean Corpuscular Volume 102.8 FL Mean Corpuscular Hemoglobin 35.1 PG Mean Corpuscular Hemoglobin Concent 34.2 % Red Cell Distribution Width 14.5 % Platelet Count 254 TH/MM3 Mean Platelet Volume 9.4 FL Neutrophils (%) (Auto) 63.7 % Lymphocytes (%) (Auto) 24.6 % Monocytes (%) (Auto) 9.0 % Eosinophils (%) (Auto) 1.6 % Basophils (%) (Auto) 1.1 % Neutrophils # (Auto) 4.4 TH/MM3 Lymphocytes # (Auto) 1.7 TH/MM3 Monocytes # (Auto) 0.6 TH/MM3 Eosinophils # (Auto) 0.1 TH/MM3 Basophils # (Auto) 0.1 TH/MM3 CBC Comment DIFF FINAL Differential Comment Blood Urea Nitrogen 21 MG/DL Creatinine 0.77 MG/DL Random Glucose 112 MG/DL Total Protein 5.7 GM/DL Albumin 2.9 GM/DL Calcium Level 8.0 MG/DL Phosphorus Level 3.3 MG/DL Magnesium Level 2.3 MG/DL Alkaline Phosphatase 120 U/L Aspartate Amino Transf (AST/SGOT) 9 U/L Alanine Aminotransferase (ALT/SGPT) 12 U/L Total Bilirubin 0.7 MG/DL Sodium Level 142 MEQ/L Potassium Level 3.5 MEQ/L Chloride Level 111 MEQ/L Carbon Dioxide Level 21.8 MEQ/L Anion Gap 9 MEQ/L Estimat Glomerular Filtration Rate 96 ML/MIN Physical Examination HEENT: PERRL; normocephalic; atraumatic; no jaundice. blind CHEST: CTA CARDIAC: RRR ABDOMEN: Soft, nondistended, nontender; no hepatosplenomegaly; bowel sounds are present in all four quadrants. EXTREMITIES: No clubbing, cyanosis, or edema. SKIN: Normal; no rash; no jaundice. 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 reportedly has had diarrhea for few days, on admission had large bloody BM and had rectal bleeding over night none currently. colonoscopy 08/2015 found diverticulosis, poor prep - anemia - 2/2 above. macrocytosis. hgb 10.1 on admission and has dropped, trending down. had EGD 08/2014 found mult superficial antral and duodenal ulcers s/p kcentra for eliquis d/w daughter and she is agreeable to proceeding with endoscopy PLAN - EGD and colonoscopy tomorrow - obtain consent - clear liquids - NPO after MN - Mg Citrate prep - monitor HH - transfuse as needed - hold eliquis -further recs to follow This pt seen by myself and Dr Davis and this note is written on her behalf (Estefania Peter) Physician Comments seen, examined agree with above transfuse prn (Shanae Davis MD) Estefania Peter Nov 22, 2017 14:40 Shanae Davis MD Nov 22, 2017 18:42
--- NOTE | 2017-11-22 15:30 | EKG ---
Date Performed: 11/21/2017 Time Performed: 17:36:29 PTAGE: 87 years EKG: Sinus rhythm SEPTAL MYOCARDIAL INFARCTION ABNORMAL ECG PREVIOUS TRACING : 11/02/2017 22.09 Compared to prior tracing no significant change DOCTOR: Dom Xie Interpretating Date/Time 11/22/2017 15:29:24
[2017-11-22] MEDS ORDERED: MAGNESIUM CITRATE SOLN 300 ML BTL PO ONE ×2 (16:00→18:00)
[2017-11-22] MEDS: LATANOPROST 0.005% OPHT SOLN 2.5 ML BTL RIGHT EYE SCH (20:27)
[2017-11-22 21:33] LABS: HEMATOCRIT 23.1 % (39.0-51.0)
[2017-11-23] VITALS (9 sets, daily range): BP systolic 110–140; BP diastolic 46–68; PULSE 57–81; RESP 16–18; TEMP 98.1–98.8; O2SAT 96–100
[2017-11-23 03:34] LABS: HEMATOCRIT 24.1 % (39.0-51.0); MEAN CORPUSCULAR HGB CONC 33.4 % (32.0-36.0); MEAN PLATELET VOLUME 8.6 FL (7.0-11.0); PLATELET COUNT 255 TH/MM3 (150-450); RED BLOOD COUNT 2.36 MIL/MM3 (4.50-5.90); RED CELL DISTRIBUTION WIDTH 14.5 % (11.6-17.2); WHITE BLOOD COUNT 10.8 TH/MM3 (4.0-11.0)
[2017-11-23] MEDS: CHLORHEXIDINE GLUCONATE 2 % 1 PACK (2 CLOTHS) TOP SCH (03:41)
[2017-11-23] MEDS: SODIUM CHLOR 0.9% 1000 ML INJ 1,000 ML IV SCH ×5 (03:42→23:02)
[2017-11-23 04:05] LABS: BICARBONATE 26.7 MEQ/L (21.0-32.0); CALCIUM 8.1 MG/DL (8.5-10.1); CREATININE 0.69 MG/DL (0.60-1.30); MAGNESIUM 2.8 MG/DL (1.5-2.5); PHOSPHORUS 2.2 MG/DL (2.5-4.9)
[2017-11-23] MEDS: SODIUM CHLORIDE 0.9% FLUSH 10 ML FLUSH IV FLUSH SCH ×2 (09:00→20:40)
[2017-11-23] MEDS: DOCUSATE SODIUM 50 MG/SENNA 8.6 MG TAB PO SCH ×2 (09:00→20:41)
[2017-11-23] MEDS: PANTOPRAZOLE SODIUM 40 MG VIAL IV PUSH SCH ×2 (09:43→20:40)
[2017-11-23] MEDS: MULTIVITAMIN TAB PO SCH (09:43)
[2017-11-23] MEDS ORDERED: PHENYLEPH/NS 1000 MCG/10 ML SYR IV ONE (12:00)
[2017-11-23] MEDS ORDERED: PROPOFOL 200 MG/20 ML AMP IV ONE (12:00)
[2017-11-23] MEDS ORDERED: ePHEDrine/NS 25 MG/5 ML SYRINGE IV ONE (12:00)
[2017-11-23] MEDS ORDERED: SODIUM CHLOR 0.9% 1000 ML INJ 1,000 ML IV ONE (12:00)
[2017-11-23] MEDS ORDERED: LIDOCAINE HCL 1% PF 5 ML SYRINGE OTHER ONE (12:00)
[2017-11-23] MEDS ORDERED: DO NOT ADM ANY ANTICOAGULANT DRUGS PRN (12:57)
[2017-11-23] MEDS ORDERED: MAGNESIUM CITRATE SOLN 300 ML BTL PO ONE (13:00)
--- NOTE | 2017-11-23 13:00 | GIPROC ---
[facility] [address] [facility]. [facility], [address] EGD PROCEDURE REPORT EXAM DATE: 11/23/2017 PATIENT NAME: Dom Fernando MR #: [id number] BIRTHDATE: 1930 ATTENDING: Shanae Davis MD ORDER #: [id number] CORRECTIONAL SUBSTANCE ABUSE COUNSELOR: Norma Patrick RN STATUS: inpatient INDICATIONS: The patient is a 87 yr old male here for an EGD due to anemia, gi bleeding PROCEDURE PERFORMED: EGD w/ biopsy MEDICATIONS: None and Per Anesthesia. TOPICAL ANESTHETIC: none CONSENT: The patient understands the risks and benefits of the procedure and understands that these risks include, but are not limited to: sedation, allergic reaction, infection, perforation and/or bleeding. Alternative means of evaluation and treatment include, among others: physical exam, x-rays, and/or surgical intervention. The patient elects to proceed with this endoscopic procedure. medical equipment was checked for proper function. Hand hygiene and appropriate measures for infection prevention was taken. After the risks, benefits and alternatives of the procedure were thoroughly explained, Informed consent was verified, confirmed and timeout was successfully executed by the treatment team. The patient was anesthetized with topical anesthesia and the [id number] (Pedi C) endoscope was introduced through the mouth and advanced to the second portion of the duodenum. Retroflexed views revealed a hiatal hernia The gastroscope was then slowly withdrawn and removed. Gastritis antrum-biopsy duodenum normal-biopsy. ADVERSE EVENTS: There were no complications. IMPRESSIONS: 1. Gastritis antrum-biopsy duodenum normal-biopsy 2. Retroflexed views revealed a hiatal hernia RECOMMENDATIONS: 1. Await biopsy results. Biopsy results will not be ready for 7-10 days. If you don't hear from us in two weeks, call our office for biopsy results. 2. Anti-reflux regimen 3. Continue PPI PATIENT CONDITION: stable DISPOSITION: Inpatient REPEAT EXAM: Return 3 years EGD Shanae Davis MD eSigned: Shanae Davis MD 11/23/2017 1:00 PM cc:
--- NOTE | 2017-11-23 13:04 | GIPROC ---
[facility] [address] [facility] [place], [address] COLONOSCOPY PROCEDURE REPORT EXAM DATE: 11/23/2017 PATIENT NAME: Dom Fernando MR #: [id number] BIRTHDATE: 1930 ENDOSCOPIST: Shanae Davis MD ORDER #: [id number] METROLOGY SPECIALIST: Norma Patrick RN STATUS: inpatient INDICATIONS: The patient is a 87 yr old male here for a colonoscopy due to anemia, gi bleeding PROCEDURE PERFORMED: Colonoscopy, diagnostic MEDICATIONS: None and Per Anesthesia. PREP QUALITY: poor PREP TYPE:Other: ESTIMATED BLOOD LOSS: None CONSENT: The patient understands the risks and benefits of the procedure and understands that these risks include, but are not limited to: sedation, allergic reaction, infection, perforation and/or bleeding. Alternative means of evaluation and treatment include, among others: physical exam, x-rays, and/or surgical intervention. The patient elects to proceed with this endoscopic procedure. medical equipment was checked for proper function. Hand hygiene and appropriate measures for infection prevention was taken. After the risks, benefits and alternatives of the procedure were thoroughly explained, Informed consent was verified, confirmed and timeout was successfully executed by the treatment team. A digital exam revealed external hemorrhoids The Pentax EC-[id number] endoscope was introduced through the anus and advanced to the mid transverse colon. The instrument was then slowly withdrawn as the colon was fully examined. COLON FINDINGS: Poor prep severe diverticulosis colonoscopy was aboted due to poor prep-we will try in am. Retroflexed views revealed internal hemorrhoids and Retroflexed views revealed medium internal hemorrhoids The scope was then completely withdrawn from the patient and the procedure terminated. ADVERSE EVENTS: There were no complications. IMPRESSIONS: 1. Poor prep severe diverticulosis colonoscopy was aboted due to poor prep-we will try in am 2. Retroflexed views revealed internal hemorrhoids 3. Retroflexed views revealed medium internal hemorrhoids 4. Revealed external hemorrhoids RECOMMENDATIONS: Clear liquid today extra prep colon in am RECALL: Return 1 day Colonoscopy Shanae Davis MD eSigned: Shanae Davis MD 11/23/2017 1:03 PM cc:
--- NOTE | 2017-11-23 15:15 | HHI.PR ---
Subjective Remarks Follow-up for GI bleed. Patient is currently doing well. No chest pain, fever or chills. He has shortness of breath. He underwent EGD and colonoscopy today. However colonoscopy prep was inadequate. He will undergo another colonoscopy tomorrow morning. Objective Vitals Vital Signs Date Time Temp Pulse Resp B/P (MAP) Pulse Ox O2 Delivery O2 Flow Rate FiO2 11/23/17 14:59 98.1 72 18 115/64 (81) 96 11/23/17 13:17 63 18 110/50 (70) 97 Room Air 11/23/17 13:00 64 18 113/51 (71) 98 Room Air 11/23/17 12:50 97.2 67 18 90/56 (67) 96 Room Air 11/23/17 11:45 60 16 148/57 (87) 96 11/23/17 11:30 60 16 144/66 (92) 96 11/23/17 11:15 61 16 152/69 (96) 96 11/23/17 11:00 62 16 155/68 (97) 97 11/23/17 10:40 98.1 61 16 154/68 (96) 96 11/23/17 09:29 98.4 68 18 126/62 (83) 96 11/23/17 07:07 Room Air 11/23/17 04:02 60 11/23/17 03:36 98.8 73 16 138/68 (91) 99 11/23/17 00:27 57 11/23/17 00:02 98.4 61 16 140/65 (90) 99 11/22/17 22:54 59 11/22/17 22:43 98.5 62 18 145/67 (93) 100 11/22/17 22:00 60 11/22/17 21:37 97 Nasal Cannula 3.00 11/22/17 20:30 131/59 (83) 11/22/17 20:15 Nasal Cannula 2.00 11/22/17 20:00 98.2 62 18 94 11/22/17 20:00 62 11/22/17 18:00 62 11/22/17 16:00 53 I/O 11/22/17 11/22/17 11/22/17 11/23/17 11/23/17 11/23/17 07:00 15:00 23:00 07:00 15:00 23:00 Intake Total 1085 ml 3255 ml 1760 ml 200 ml Output Total 200 ml Balance 885 ml 3255 ml 1760 ml 200 ml Intake Oral 0 ml 800 ml 760 ml IV Total 1085 ml 2455 ml 1000 ml Other 200 ml Output Urine Total 200 ml # Voids 1 3 # Bowel Movements 2 1 2 Result Diagram: 11/23/176 11/23/17 0326 Objective Remarks GENERAL: Alert, NAD. SKIN: Warm and dry. HEAD: Normocephalic. EYES: No scleral icterus. No injection or drainage. NECK: Supple, trachea midline. No JVD or lymphadenopathy. CARDIOVASCULAR: Regular rate and rhythm without murmurs, gallops, or rubs. RESPIRATORY: Breath sounds equal bilaterally. No accessory muscle use. GASTROINTESTINAL: Abdomen soft, non-tender, nondistended. MUSCULOSKELETAL: No cyanosis, or edema. BACK: Nontender without obvious deformity. No CVA tenderness. Procedures EGD 1. Gastritis antrum-biopsy duodenum normal-biopsy 2. Retroflexed views revealed a hiatal hernia A/P Assessment and Plan GI bleed - Kcentra per Eliquis reversal protocol on 11/21 - H&H stable at 8.0. - Protonix IV twice a day - Gastroenterology following. EGD done - no remarkable findings. Colonoscopy to repeat in the AM due to poor prep today. - Clear liquid diet now and NPO midnight. Acute Blood Loss Anemia - Monitor H&H - Transfuse for hemoglobin less than 7 History of CVA - No antiplatelet medication due to above - Neuro checks per unit protocol Hypertension - currently normotensive. - Hold antihypertensive meds due to active GI bleed Hyperlipidemia - Atorvastatin when by mouth Glaucoma - Brimonidine Tartrate - Dorzolamide/ Timolol - Latanoprost - Artificial Tears Full code. SCDs. Myron Perales DO Nov 23, 2017 3:15 pm
[2017-11-23] MEDS: DORZOLAMIDE 2% OPTH SOLN 200 DROP/10 ML BTLO RIGHT EYE SCH ×2 (16:33→20:40)
[2017-11-23] MEDS: ARTIFICIAL TEARS OPTH SOLN 15 ML BTL RIGHT EYE SCH (16:33)
[2017-11-23] MEDS: BRIMONIDINE TARTRATE 0.15% OPHT SOLN 5 ML BTL RIGHT EYE SCH (16:33)
[2017-11-23] MEDS: ARTIFICIAL TEARS OPTH OINT 3.5 APPLIC/3.5 GM TUBO RIGHT EYE SCH (16:33)
[2017-11-23] MEDS: TIMOLOL MALEATE 0.5% OPHT SOLN 5 ML BTL RIGHT EYE SCH ×2 (16:43→20:40)
[2017-11-23] MEDS: LATANOPROST 0.005% OPHT SOLN 2.5 ML BTL RIGHT EYE SCH (20:40)
[2017-11-24] VITALS: BP 114/54; PULSE 68; RESP 18; TEMP 98; O2SAT 98
[2017-11-24 00:03] LABS: INTERNATIONAL NORMALIZED RATIO 1.1 RATIO; PROTHROMBIN TIME - PATIENT 10.9 SEC (9.8-11.6)
[2017-11-24 02:32] VITALS: PULSE 63
[2017-11-24] MEDS: CHLORHEXIDINE GLUCONATE 2 % 1 PACK (2 CLOTHS) TOP SCH (02:45)
[2017-11-24 04:00] VITALS: BP 116/63; PULSE 70; RESP 19; TEMP 97.6; O2SAT 97
[2017-11-24 08:00] VITALS: BP 114/60; PULSE 59; RESP 17; TEMP 97.2; O2SAT 92
[2017-11-24] MEDS: MULTIVITAMIN TAB PO SCH (08:03)
[2017-11-24] MEDS: DOCUSATE SODIUM 50 MG/SENNA 8.6 MG TAB PO SCH ×2 (08:03→22:26)
[2017-11-24] MEDS: PANTOPRAZOLE SODIUM 40 MG VIAL IV PUSH SCH (08:04)
[2017-11-24] MEDS: ARTIFICIAL TEARS OPTH OINT 3.5 APPLIC/3.5 GM TUBO RIGHT EYE SCH (08:05)
[2017-11-24] MEDS: SODIUM CHLORIDE 0.9% FLUSH 10 ML FLUSH IV FLUSH SCH ×2 (08:05→22:26)
[2017-11-24] MEDS: ARTIFICIAL TEARS OPTH SOLN 15 ML BTL RIGHT EYE SCH (08:05)
[2017-11-24] MEDS: DORZOLAMIDE 2% OPTH SOLN 200 DROP/10 ML BTLO RIGHT EYE SCH ×2 (08:06→22:28)
[2017-11-24] MEDS: TIMOLOL MALEATE 0.5% OPHT SOLN 5 ML BTL RIGHT EYE SCH ×2 (08:06→22:27)
[2017-11-24] MEDS: BRIMONIDINE TARTRATE 0.15% OPHT SOLN 5 ML BTL RIGHT EYE SCH (08:06)
--- NOTE | 2017-11-24 09:05 | HHI.PR ---
Subjective Remarks see 2 pm after scope no complains tolerted po very well no complains Objective Vitals Vital Signs Date Time Temp Pulse Resp B/P (MAP) Pulse Ox O2 Delivery O2 Flow Rate FiO2 11/24/17 04:00 97.6 70 19 116/63 (80) 97 11/24/17 02:32 63 11/24/17 00:00 98.0 68 18 114/54 (74) 98 11/23/17 20:42 98.7 61 16 110/46 (67) 99 11/23/17 16:28 98.2 81 18 123/64 (83) 100 11/23/17 14:59 98.1 72 18 115/64 (81) 96 11/23/17 13:17 63 18 110/50 (70) 97 Room Air 11/23/17 13:00 64 18 113/51 (71) 98 Room Air 11/23/17 12:50 97.2 67 18 90/56 (67) 96 Room Air 11/23/17 11:45 60 16 148/57 (87) 96 11/23/17 11:30 60 16 144/66 (92) 96 11/23/17 11:15 61 16 152/69 (96) 96 11/23/17 11:00 62 16 155/68 (97) 97 11/23/17 10:40 98.1 61 16 154/68 (96) 96 11/23/17 09:29 98.4 68 18 126/62 (83) 96 I/O 11/23/17 11/23/17 11/23/17 11/24/17 11/24/17 11/24/17 07:00 15:00 23:00 07:00 15:00 23:00 Intake Total 1760 ml 200 ml 2010 ml Output Total 2 ml 500 ml Balance 1760 ml 200 ml 2008 ml -500 ml Intake Oral 760 ml 650 ml IV Total 1000 ml 1360 ml Other 200 ml Output Urine Total 500 ml Stool Total 2 ml # Voids 3 5 # Bowel Movements 2 1 2 Result Diagram: 11/23/17 0326 11/23/17 0326 Imaging Last Impressions Barium Enema 11/24/17 0000 Signed Impressions: Service Date/Time: November 11:28 - CONCLUSION: 1. Suboptimal single column barium enema demonstrating no large mass, stricture or obstruction. 2. There is diverticulosis greatest in the sigmoid colon. 3. Residual stool in the right side of the colon. Spencer Mc MD Objective Remarks awakea nd alert, no acute distress, legally blind, oriented x 3 anciteric lungs- n rales regular rhythm abdomen soft, nontender extremities no edema moves all extremities spontaenously Procedures 11/23- EGD 1. Gastritis antrum-biopsy duodenum normal-biopsy 2. Retroflexed views revealed a hiatal hernia 11/23- colonoscopy- incomplete- poor prep 11/24- colonosocopy- A/P Assessment and Plan 87 years old male admitted for GI bleed S/P EGD- gastritis 11/23. - repeat colonosocpy- no acute bleed - Kcentra per Eliquis reversal protocol on 11/21 - H&H stable at 8.0. - Protonix IV twice a day- change to po - Gastroenterology following. EGD done - no remarkable findings. - Clear liquid diet now and NPO midnight. Acute Blood Loss Anemia - Monitor H&H - Transfuse for hemoglobin less than 7 History of CVA - No antiplatelet medication due to above - Neuro checks per unit protocol Hypertension - currently normotensive. - Hold antihypertensive meds due to active GI bleed Hyperlipidemia - Atorvastatin when by mouth Glaucoma - Brimonidine Tartrate - Dorzolamide/ Timolol - Latanoprost - Artificial Tears Full code. SCDs. PT consult CM consult for DC planning Vish Oleary MD Nov 24, 2017 09:05
[2017-11-24] MEDS ORDERED: METOPROLOL TARTRATE 25 MG TAB PO PRN (09:15)
[2017-11-24] MEDS ORDERED: LACTATED RINGER'S 1000 ML IV PRN (09:15)
[2017-11-24] MEDS ORDERED: POVIDONE IODINE 5% (ANTISEPSIS KIT) 4 APPLICATIONS EACH NARE PRN (09:15)
[2017-11-24] MEDS ORDERED: CHLORHEXIDINE GLUCONATE 2 % 1 PACK (2 CLOTHS) TOPICAL PRN (09:15)
[2017-11-24] MEDS ORDERED: SODIUM CHLORID 0.9% 500 ML IV PRN (09:15)
--- NOTE | 2017-11-24 10:44 | GIPROC ---
[facility] [address] [facility]. [facility], [address] COLONOSCOPY PROCEDURE REPORT EXAM DATE: 11/24/2017 PATIENT NAME: Dom Fernando MR #: [id number] BIRTHDATE: 1930 ENDOSCOPIST: Shanae Davis MD ORDER #: [id number] IRRIGATION SPECIALIST: Gale Yanes and Shawn Barrera STATUS: inpatient INDICATIONS: The patient is a 87 yr old male here for a colonoscopy due to anemia, gi bleeding PROCEDURE PERFORMED: Colonoscopy, incomplete MEDICATIONS: None and Per Anesthesia. PREP QUALITY: good PREP TYPE:Other: ESTIMATED BLOOD LOSS: None CONSENT: The patient understands the risks and benefits of the procedure and understands that these risks include, but are not limited to: sedation, allergic reaction, infection, perforation and/or bleeding. Alternative means of evaluation and treatment include, among others: physical exam, x-rays, and/or surgical intervention. The patient elects to proceed with this endoscopic procedure. medical equipment was checked for proper function. Hand hygiene and appropriate measures for infection prevention was taken. After the risks, benefits and alternatives of the procedure were thoroughly explained, Informed consent was verified, confirmed and timeout was successfully executed by the treatment team. A digital exam revealed external hemorrhoids The Pentax EC-[id number] endoscope was introduced through the anus and advanced to the hepatic flexure. The instrument was then slowly withdrawn as the colon was fully examined. COLON FINDINGS: Diverticulosis sigmoid,descending very long, tortous colon. Retroflexed views revealed internal hemorrhoids and Retroflexed views revealed small internal hemorrhoids The scope was then completely withdrawn from the patient and the procedure terminated. PROCEDURE WITHDRAWAL TIME:10minutes ADVERSE EVENTS: There were no complications. IMPRESSIONS: 1. Diverticulosis sigmoid,descending very long, tortous colon 2. Retroflexed views revealed internal hemorrhoids 3. Retroflexed views revealed small internal hemorrhoids 4. Revealed external hemorrhoids RECOMMENDATIONS: 1. Benefiber 2 tsp daily 2. High fiber diet 3. Probiotics from any [facility] or health food store 4. Yearly rectal exams 5. Ba enema now RECALL: Return 1 year Colonoscopy Shanae Davis MD eSigned: Shanae Davis MD 11/24/2017 10:43 AM cc:
[2017-11-24] MEDS ORDERED: ePHEDrine/NS 25 MG/5 ML SYRINGE IV ONE (12:00)
[2017-11-24] MEDS ORDERED: PROPOFOL 200 MG/20 ML AMP IV ONE (12:00)
[2017-11-24] MEDS ORDERED: MAGNESIUM CITRATE SOLN 300 ML BTL PO ONE ×2 (12:30→18:00)
--- NOTE | 2017-11-24 13:27 | RADRPT ---
EXAM DATE/TIME: 11/24/2017 11:28 [place] COMPARISON: No previous studies available for comparison. INDICATIONS : Incomplete colonoscopy. GI bleed. FLUORO TIME: 3.4 minutes IMAGE COUNT: CONTRAST: 1. Liquid Polibar Plus Barium Sulfate (105% w/v, 58% w/w) MEDICAL HISTORY : Hypertension. Hypercholesterolemia. Carcinoma, prostatic. Melena. Measles. SURGICAL HISTORY : None. ENCOUNTER: Subsequent ACUITY: 2 days PAIN SCORE: 3/10 LOCATION: Abdomen, all quadrants. FINDINGS: A va underwriter film of the abdomen and pelvis demonstrates gaseous distention of colon. There are multiple l oops of nondilated air containing small bowel. Multiple surgical elise are present in the pelvis. A limited solid column barium enema exam was performed. The patient was confused and had difficulty w ith the exam. A balloon tip catheter was inserted into the rectum, and barium was instilled under flu oroscopic control. Barium flows freely to the cecum without obstruction. The colon is of a normal diameter. There are no definite fixed polypoid filling defects or annular constricting lesions identified. Residual stoo l is noted in the right side of the colon limiting sensitivity. Numerous diverticuli are present greatest in the sigmoid colon. There was no definite inflammatory ch gissel.. The ileocecal valve is competent. There is suboptimal opacification of the cecum. CONCLUSION: 1. Suboptimal single column barium enema demonstrating no large mass, stricture or obstruction. 2. There is diverticulosis greatest in the sigmoid colon. 3. Residual stool in the right side of the colon. Spencer Mc MD on November 24, 2017 at 13:22 Board Certified Radiologist. This report was verified electronically.
[2017-11-24] MEDS: SODIUM CHLOR 0.9% 1000 ML INJ 1,000 ML IV SCH (13:50)
[2017-11-24 16:00] VITALS: BP 136/65; PULSE 70; RESP 17; TEMP 95.7; O2SAT 95
[2017-11-24] MEDS: BISACODYL EC 5 MG TABEC PO SCH ×2 (17:03→22:27)
[2017-11-24 20:00] VITALS: BP 127/60; PULSE 70; RESP 20; TEMP 98; O2SAT 99
[2017-11-24] MEDS: LATANOPROST 0.005% OPHT SOLN 2.5 ML BTL RIGHT EYE SCH (22:28)
[2017-11-25] VITALS (16 sets, daily range): BP systolic 92–158; BP diastolic 56–71; PULSE 50–152; RESP 16–20; TEMP 97.7–99.1; O2SAT 92–97
[2017-11-25] MEDS: CHLORHEXIDINE GLUCONATE 2 % 1 PACK (2 CLOTHS) TOP SCH (03:45)
[2017-11-25 05:31] LABS: HEMATOCRIT 24.5 % (39.0-51.0); HEMOGLOBIN 8.2 GM/DL (13.0-17.0); MEAN CORPUSCULAR HEMOGLOBIN 34.1 PG (27.0-34.0); MEAN CORPUSCULAR HGB CONC 33.4 % (32.0-36.0); MEAN PLATELET VOLUME 8.7 FL (7.0-11.0); PLATELET COUNT 258 TH/MM3 (150-450); RED CELL DISTRIBUTION WIDTH 14.3 % (11.6-17.2); WHITE BLOOD COUNT 6.3 TH/MM3 (4.0-11.0)
[2017-11-25] MEDS: SODIUM CHLORIDE 0.9% FLUSH 10 ML FLUSH IV FLUSH SCH ×2 (08:06→21:00)
[2017-11-25] MEDS: DOCUSATE SODIUM 50 MG/SENNA 8.6 MG TAB PO SCH ×2 (08:06→21:00)
[2017-11-25] MEDS: PANTOPRAZOLE SOD 40 MG DELAYED RELEASE TAB PO SCH (08:07)
[2017-11-25] MEDS: MULTIVITAMIN TAB PO SCH (08:07)
[2017-11-25] MEDS: ARTIFICIAL TEARS OPTH SOLN 15 ML BTL RIGHT EYE SCH (08:08)
[2017-11-25] MEDS: DORZOLAMIDE 2% OPTH SOLN 200 DROP/10 ML BTLO RIGHT EYE SCH ×2 (08:09→21:00)
[2017-11-25] MEDS: BRIMONIDINE TARTRATE 0.15% OPHT SOLN 5 ML BTL RIGHT EYE SCH (08:09)
[2017-11-25] MEDS: TIMOLOL MALEATE 0.5% OPHT SOLN 5 ML BTL RIGHT EYE SCH ×2 (08:10→21:00)
[2017-11-25] MEDS: ARTIFICIAL TEARS OPTH OINT 3.5 APPLIC/3.5 GM TUBO RIGHT EYE SCH (08:10)
--- NOTE | 2017-11-25 09:28 | HHI.PR ---
Subjective Remarks around 7 am- telemetry - went into a fib- 130s- asymptomatic no melena or hematochezia no abdominal pain- Objective Vitals Vital Signs Date Time Temp Pulse Resp B/P (MAP) Pulse Ox O2 Delivery O2 Flow Rate FiO2 11/25/17 07:27 104 11/25/17 04:00 99.1 64 20 130/58 (82) 96 11/25/17 01:48 64 11/25/17 00:00 98.4 78 20 130/62 (84) 96 11/25/17 00:00 Room Air 11/24/17 20:00 98.0 70 20 127/60 (82) 99 11/24/17 20:00 70 11/24/17 16:00 95.7 70 17 136/65 (88) 95 11/24/17 10:44 97.7 64 20 117/67 (84) 96 I/O 11/24/17 11/24/17 11/24/17 11/25/17 11/25/17 11/25/17 07:00 15:00 23:00 07:00 15:00 23:00 Intake Total 500 ml 720 ml 120 ml Output Total 500 ml 450 ml Balance -500 ml 500 ml 270 ml 120 ml Intake Oral 720 ml 120 ml IV Total 300 ml Other 200 ml Output Urine Total 500 ml 450 ml # Voids 1 5 # Bowel Movements 2 2 1 Result Diagram: 11/25/17 0415 11/23/17 0326 Imaging Last Impressions Barium Enema 11/24/17 0000 Signed Impressions: Service Date/Time: November 11:28 - CONCLUSION: 1. Suboptimal single column barium enema demonstrating no large mass, stricture or obstruction. 2. There is diverticulosis greatest in the sigmoid colon. 3. Residual stool in the right side of the colon. Spencer Mc MD Objective Remarks awake and alert, no acute distress, legally blind, oriented x 3, irritable anicteric lungs- n rales irregularly irregular rhythm abdomen soft, nontender extremities no edema moves all extremities spontaenously Procedures 11/23- EGD 1. Gastritis antrum-biopsy duodenum normal-biopsy 2. Retroflexed views revealed a hiatal hernia 11/23- colonoscopy- incomplete- poor prep 11/24-Barium enema- no mass A/P Assessment and Plan 87 years old male admitted for GI bleed S/P EGD- gastritis 11/23. - repeat colonosocpy- no acute bleed- likely diverticular bleed -S/P Kcentra per Eliquis reversal protocol on 11/21 - H&H stable at 8.2 - Protonix po - Gastroenterology following. EGD done - no remarkable findings. - d/w Dr. James- ok to restart Eliquis- more of diverticular bleed - will 1 unit RBC- may help with tachycardia Atrial fibrillation- in RVR- most likely with previous history of a fib- based on home meds (was on cardizem and metoprolol eliquis as OP) - transfer to PSYCHIATRIC bed - start Cardizem drip protocol - on admission was in SR and bradycardic - on review of home meds- was on Metoprolol and Cardizem- were DC on admission due to hypotension and bradycardia and GIB History of CVA - neuro stable Hypertension - currently normotensive. - Hyperlipidemia - Atorvastatin when by mouth Glaucoma - Brimonidine Tartrate - Dorzolamide/ Timolol - Latanoprost - Artificial Tears Full code. SCDs. PT consult CM consult for DC planning ADD- check on patient again- spontaenously went to SR - IV cardizem push and drip not given yet- HR 80s no complains "bored" DC Cardizem protocol order - not started- start po Lopressor 25 mg po q 12 instead start eliquis - cleared by GI-- d/w Dr. Davis- more of diverticular bleed check stat electrolytes PT consult 130 pm HR 58- sinus - got x1 Lopressor 25 mg for above decrease to 12.5 mg po bid with hold parameters- d.w staff nurse transfer to PSYCHIATRIC bed for close monitoring- Looks like paroxysmal a fib- if goes into rapid ventricular rate- may need drip for rate control Vish Oleary MD Nov 25, 2017 09:28
[2017-11-25] MEDS ORDERED: DILTIAZEM INJ 125 MG in SODIUM CHLORIDE 0.9% INJ 100 ML IV PRN (10:00)
[2017-11-25] MEDS ORDERED: DILTIAZEM HCL 25 MG/5 ML VIAL IV PUSH ONE (10:00)
[2017-11-25] MEDS ORDERED: METOPROLOL TARTRATE 25 MG TAB PO SCH (10:45)
[2017-11-25 12:02] LABS: BICARBONATE 25.5 MEQ/L (21.0-32.0); CALCIUM 8.1 MG/DL (8.5-10.1); CREATININE 0.88 MG/DL (0.60-1.30); MAGNESIUM 2.9 MG/DL (1.5-2.5)
[2017-11-25 12:03] LABS: PHOSPHORUS 2.7 MG/DL (2.5-4.9)
[2017-11-25] MEDS ORDERED: PILL SPLITTER OTHER PRN (14:00)
--- NOTE | 2017-11-25 14:27 | EKG ---
Date Performed: 11/25/2017 Time Performed: 09:27:46 PTAGE: 87 years EKG: ATRIAL FIBRILLATION WITH RAPID VENTRICULAR RESPONSE MARKED LEFT AXIS DEVIATION MODERATE INT RAVENTRICULAR CONDUCTION DELAY NONSPECIFIC ST & T-WAVE ABNORMALITY ABNORMAL ECG PREVIOUS TRACING : 11/21/2017 17.36 Consider anterolateral ischemia. DOCTOR: Luis Garsia Interpretating Date/Time 11/25/2017 14:26:35
--- NOTE | 2017-11-25 16:58 | HHI.GIFU ---
Subjective Remarks Resting in the bed denies any abdominal pain or diarrhea Probable poor historian Temp 99.1 (Sayra Varela) Objective Vitals I&O Vital Signs Date Time Temp Pulse Resp B/P (MAP) Pulse Ox O2 Delivery O2 Flow Rate FiO2 11/25/17 14:46 98.3 60 20 128/63 96 11/25/17 14:19 98.9 64 20 120/56 97 11/25/17 12:00 98.2 56 17 92/56 (68) 92 11/25/17 11:03 120/58 (78) 11/25/17 10:00 74 11/25/17 08:10 152 11/25/17 08:00 145 11/25/17 08:00 Room Air 11/25/17 07:27 104 11/25/17 04:00 99.1 64 20 130/58 (82) 96 11/25/17 01:48 64 11/25/17 00:00 98.4 78 20 130/62 (84) 96 11/25/17 00:00 Room Air 11/24/17 20:00 98.0 70 20 127/60 (82) 99 11/24/17 20:00 70 I/O 11/24/17 11/24/17 11/24/17 11/25/17 11/25/17 11/25/17 07:00 15:00 23:00 07:00 15:00 23:00 Intake Total 500 ml 720 ml 120 ml Output Total 500 ml 450 ml Balance -500 ml 500 ml 270 ml 120 ml Intake Oral 720 ml 120 ml IV Total 300 ml Other 200 ml Output Urine Total 500 ml 450 ml # Voids 1 5 # Bowel Movements 2 2 1 Laboratory Laboratory Tests Test 11/25/17 04:15 11/25/17 11:15 White Blood Count 6.3 Red Blood Count 2.40 Hemoglobin 8.2 Hematocrit 24.5 Mean Corpuscular Volume 102.0 Mean Corpuscular Hemoglobin 34.1 Mean Corpuscular Hemoglobin Concent 33.4 Red Cell Distribution Width 14.3 Platelet Count 258 Mean Platelet Volume 8.7 Blood Urea Nitrogen 8 Creatinine 0.88 Random Glucose 168 Calcium Level 8.1 Phosphorus Level 2.7 Magnesium Level 2.9 Sodium Level 141 Potassium Level 3.7 Chloride Level 108 Carbon Dioxide Level 25.5 Anion Gap 8 Estimat Glomerular Filtration Rate 82 Imaging Last Impressions Barium Enema 11/24/17 0000 Signed Impressions: Service Date/Time: November 11:28 - CONCLUSION: 1. Suboptimal single column barium enema demonstrating no large mass, stricture or obstruction. 2. There is diverticulosis greatest in the sigmoid colon. 3. Residual stool in the right side of the colon. Spencer Mc MD Physical Exam HEENT: Pupils round and reactive to light; normocephalic; atraumatic; no jaundice. Throat is clear. NECK: Neck is supple, no JVD, no lymphadenopathy. CHEST: Chest is clear to auscultation and percussion. CARDIAC: Regular rate and rhythm with no murmur gallop or rubs. ABDOMEN: Soft, nondistended, nontender; no hepatosplenomegaly; bowel sounds are present in all four quadrants. EXTREMITIES: No clubbing, cyanosis, or edema. SKIN: Normal; no rash; no jaundice. TINNER HELPER: No focal deficits; alert and oriented times three. (Sayra Varela) Assessment and Plan Plan ASSESSMENT - hematochezia, diarrhea - appears to be diverticular disease noninfectious reportedly has had diarrhea for few days, on admission had large bloody BM and had rectal bleeding over night - anemia - 2/2 above. macrocytosis. hgb 10.1 on admission and has dropped, trending down. had EGD 08/2014 found mult superficial antral and duodenal ulcers s/p kcentra for eliquis , add iron supplement - Colonoscopy showed diverticulosis and hemorrhoids -No diarrhea abdomen is soft, no obvious bleeding PLAN -PPI -Low-dose Lopressor - Add ferrous sulfate 325 mg by mouth twice a day - monitor HH - transfuse as needed - Restart Eliquis is okay GI will follow as needed unless patient begins to have symptoms. -further recs to follow based on patient's symptoms This pt seen by myself and Dr Davis and this note is written on her behalf (Sayra Varela) Physician Comments seen, examined agree with above ba enema noted gi will sign off ok for anticoagulation fu gi in 2 weeks consider capsule endoscopy if still issues (Shanae Davis MD) Sayra Varela Nov 25, 2017 16:58 Shanae Davis MD Nov 25, 2017 21:40
[2017-11-25] MEDS: FERROUS SULFATE 325 MG (65 MG ELEMENTAL IRON) TAB PO SCH (21:00)
[2017-11-25] MEDS: LATANOPROST 0.005% OPHT SOLN 2.5 ML BTL RIGHT EYE SCH (21:00)
[2017-11-25] MEDS: METOPROLOL TARTRATE 25 MG TAB PO SCH (21:00)
[2017-11-26] VITALS (18 sets, daily range): BP systolic 118–170; BP diastolic 60–77; PULSE 50–125; RESP 14–16; TEMP 97.7–99.1; O2SAT 90–98
[2017-11-26] MEDS: CHLORHEXIDINE GLUCONATE 2 % 1 PACK (2 CLOTHS) TOP SCH (03:56)
[2017-11-26 06:56] LABS: AUTOMATED NEUTROPHIL # 3.8 TH/MM3 (1.8-7.7); BASOPHIL % 0.8 % (0.0-2.0); EOSINOPHIL # 0.2 TH/MM3 (0-0.4); EOSINOPHIL % 4.3 % (0.0-4.0); HEMATOCRIT 24.4 % (39.0-51.0); HEMOGLOBIN 8.4 GM/DL (13.0-17.0); LYMPH % 17.8 % (9.0-44.0); MEAN CELL VOLUME 99.1 FL (80.0-100.0); MEAN CORPUSCULAR HEMOGLOBIN 34.2 PG (27.0-34.0); MEAN CORPUSCULAR HGB CONC 34.5 % (32.0-36.0); MEAN PLATELET VOLUME 8.9 FL (7.0-11.0); MONO % 8.6 % (0.0-8.0); MONOCYTE # 0.5 TH/MM3 (0-0.9); NEUT % 68.5 % (16.0-70.0); PLATELET COUNT 233 TH/MM3 (150-450); RED BLOOD COUNT 2.47 MIL/MM3 (4.50-5.90); RED CELL DISTRIBUTION WIDTH 15.6 % (11.6-17.2); WHITE BLOOD COUNT 5.5 TH/MM3 (4.0-11.0)
[2017-11-26 07:42] LABS: BICARBONATE 21.7 MEQ/L (21.0-32.0); CALCIUM 7.2 MG/DL (8.5-10.1); CREATININE 0.63 MG/DL (0.60-1.30)
[2017-11-26 07:59] LABS: TOTAL PROTEIN 5.6 GM/DL (6.4-8.2)
[2017-11-26] MEDS: SODIUM CHLORIDE 0.9% FLUSH 10 ML FLUSH IV FLUSH SCH ×2 (09:00→22:36)
[2017-11-26] MEDS: DOCUSATE SODIUM 50 MG/SENNA 8.6 MG TAB PO SCH ×2 (09:00→21:00)
[2017-11-26] MEDS: APIXABAN 5 MG TABLET PO SCH ×2 (09:00→22:34)
[2017-11-26] MEDS: MULTIVITAMIN TAB PO SCH (09:53)
[2017-11-26] MEDS: FERROUS SULFATE 325 MG (65 MG ELEMENTAL IRON) TAB PO SCH ×2 (09:53→22:34)
[2017-11-26] MEDS: METOPROLOL TARTRATE 25 MG TAB PO SCH ×2 (09:54→22:33)
[2017-11-26] MEDS: PANTOPRAZOLE SOD 40 MG DELAYED RELEASE TAB PO SCH (09:54)
[2017-11-26] MEDS: ARTIFICIAL TEARS OPTH SOLN 15 ML BTL RIGHT EYE SCH (09:59)
[2017-11-26] MEDS: ARTIFICIAL TEARS OPTH OINT 3.5 APPLIC/3.5 GM TUBO RIGHT EYE SCH (09:59)
[2017-11-26] MEDS: BRIMONIDINE TARTRATE 0.15% OPHT SOLN 5 ML BTL RIGHT EYE SCH (09:59)
[2017-11-26] MEDS: TIMOLOL MALEATE 0.5% OPHT SOLN 5 ML BTL RIGHT EYE SCH (10:00)
[2017-11-26] MEDS: DORZOLAMIDE 2% OPTH SOLN 200 DROP/10 ML BTLO RIGHT EYE SCH ×2 (10:00→21:00)
[2017-11-26] MEDS ORDERED: POTASSIUM CHLOR 10 MEQ PREMIX 100 ML IV ONE (11:15)
[2017-11-26] MEDS ORDERED: POTASSIUM CHLORIDE 10 MEQ CONTROLLED RELEASE TAB PO ONE (11:15)
--- NOTE | 2017-11-26 11:50 | HHI.FF ---
Face to Face Verification Diagnosis: (1) Atrial fibrillation (2) CVA (cerebral vascular accident) (3) Gastrointestinal hemorrhage (4) Physical deconditioning Home Health Nursing Order: Medical education Signs/symptoms of disease process Medication education-adverse effect Nursing assessment with vital signs Drafter (Cad) Electrical Order: To Evaluate: Living conditions/environment, Support services I have seen patient Dom Fernando on 11/26/17. My clinical findings support the need for the requested home health care services because: Ltd mobility - disease progression Need for psychosocial assistance I certify that my clinical findings support that this patient is homebound because: Need for psychosocial assistance Vish Oleary MD Nov 26, 2017 11:50
--- NOTE | 2017-11-26 14:40 | HHI.PR ---
Subjective Remarks no melena or hematochezia good po intake no complains of pain po 100% BP elevated 160- 170 HR in the 50s- sinus overnight Objective Vitals Vital Signs Date Time Temp Pulse Resp B/P (MAP) Pulse Ox O2 Delivery O2 Flow Rate FiO2 11/26/17 12:00 54 11/26/17 11:00 56 11/26/17 10:00 58 11/26/17 09:00 58 11/26/17 08:00 52 11/26/17 08:00 98 Room Air 11/26/17 08:00 99.1 53 16 170/74 (106) 98 11/26/17 03:00 98.8 50 16 159/77 (104) 97 11/26/17 03:00 55 11/26/17 03:00 97 Room Air 11/25/17 23:00 50 11/25/17 23:00 96 Room Air 11/25/17 23:00 98.0 52 16 158/66 (96) 96 11/25/17 19:00 96 Room Air 11/25/17 19:00 97.7 65 16 146/70 (95) 96 11/25/17 19:00 61 11/25/17 18:07 98.2 56 16 137/71 (93) 95 Manual Cuff/Auscultation 11/25/17 18:07 57 11/25/17 18:07 95 Room Air 11/25/17 17:00 98.2 56 16 137/71 95 11/25/17 14:46 98.3 60 20 128/63 96 I/O 11/25/17 11/25/17 11/25/17 11/26/17 11/26/17 11/26/17 06:59 14:59 22:59 06:59 14:59 22:59 Intake Total 120 ml 530 ml 240 ml Output Total 325 ml 750 ml Balance 120 ml 205 ml -510 ml Intake Oral 120 ml 120 ml 240 ml Packed Cells 400 ml Blood Product IV Normal Saline Flush 10 ml Output Urine Total 325 ml 750 ml # Voids 5 2 # Bowel Movements 1 0 Result Diagram: 11/26/17 0530 11/26/17 0530 Imaging Last Impressions Barium Enema 11/24/17 0000 Signed Impressions: Service Date/Time: November 11:28 - CONCLUSION: 1. Suboptimal single column barium enema demonstrating no large mass, stricture or obstruction. 2. There is diverticulosis greatest in the sigmoid colon. 3. Residual stool in the right side of the colon. Spencer Mc MD Objective Remarks awake and alert, no acute distress, legally blind, oriented x 3, irritable anicteric lungs- n rales irregularly irregular rhythm abdomen soft, nontender extremities no edema moves all extremities spontaenously Procedures 11/23- EGD 1. Gastritis antrum-biopsy duodenum normal-biopsy 2. Retroflexed views revealed a hiatal hernia 11/23- colonoscopy- incomplete- poor prep 11/24-Barium enema- no mass 11/25- colonoscopy- diverticuloses A/P Assessment and Plan 87 years old male admitted for GI bleed S/P EGD- gastritis 11/23. - repeat colonosocpy- no acute bleed- likely diverticular bleed -S/P Kcentra per Eliquis reversal protocol on 11/21 - H&H stable at 8.2 - Protonix po - Gastroenterology following. EGD done - no remarkable findings. except for mild gastritis - d/w Dr. James- ok to restart Eliquis- more of diverticular bleed Paroxysmal Atrial fibrillation- in RVR- Nov- now in SR- bradycardia most likely with previous history of a fib- based on home meds (was on cardizem/ metoprolol/ eliquis as OP) - continue Lopressor 12.5 mg po bid- with hold parameters - on review of home meds- was on Metoprolol and Cardizem- were DC on admission due to hypotension and bradycardia and GIB HYpertension- elevated SBPs- - unable to go up on BB with HR in the 50s - start Amlodipine 2.5 mg po daily History of CVA - neuro stable - restart Eliquis- d/w patient and daughter on the phone extensively - cleared by GI- Dr. Hassan to restart HYpocalcemia - checkk VUt d level start calcium supplements Hyperlipidemia - Atorvastatin when by mouth Glaucoma - Brimonidine Tartrate - Dorzolamide/ Timolol - Latanoprost - Artificial Tears Full code. SCDs. PT consult- today CM consult for DC Vish Carney MD Nov 26, 2017 14:40
[2017-11-26] MEDS: amLODIPine BESYLATE 5 MG TAB PO SCH (15:29)
[2017-11-26] MEDS: LATANOPROST 0.005% OPHT SOLN 2.5 ML BTL RIGHT EYE SCH (22:32)
[2017-11-27] VITALS (21 sets, daily range): BP systolic 116–162; BP diastolic 58–73; PULSE 50–80; RESP 14–16; TEMP 97.5–98.5; O2SAT 59–100
[2017-11-27 05:51] LABS: BICARBONATE 24.4 MEQ/L (21.0-32.0); BLOOD UREA NITROGEN 14 MG/DL (7-18); CHLORIDE 104 MEQ/L (98-107); CREATININE 1.11 MG/DL (0.60-1.30); GLOMERULAR FILTRATION RATE 63 ML/MIN (>89); GLUCOSE,RANDOM 137 MG/DL (74-106); SODIUM (NA) 139 MEQ/L (136-145)
[2017-11-27 05:59] LABS: % SATURATION IRON PROFILE 17.6 % (20-50); FERRITIN 110 NG/ML (26-388); IRON (FE) 58 MCG/DL (65-175); TOTAL IRON BINDING CAPACITY 329 MCG/DL (250-450)
[2017-11-27] MEDS: DOCUSATE SODIUM 50 MG/SENNA 8.6 MG TAB PO SCH ×2 (09:00→20:37)
[2017-11-27] MEDS: APIXABAN 5 MG TABLET PO SCH (09:00)
[2017-11-27] MEDS: METOPROLOL TARTRATE 25 MG TAB PO SCH ×2 (10:02→20:37)
[2017-11-27] MEDS: MULTIVITAMIN TAB PO SCH (10:02)
[2017-11-27] MEDS: FERROUS SULFATE 325 MG (65 MG ELEMENTAL IRON) TAB PO SCH ×2 (10:03→20:37)
[2017-11-27] MEDS: PANTOPRAZOLE SOD 40 MG DELAYED RELEASE TAB PO SCH (10:03)
[2017-11-27] MEDS: SODIUM CHLORIDE 0.9% FLUSH 10 ML FLUSH IV FLUSH SCH ×2 (10:03→20:38)
[2017-11-27] MEDS: amLODIPine BESYLATE 5 MG TAB PO SCH (10:03)
[2017-11-27] MEDS: ARTIFICIAL TEARS OPTH SOLN 15 ML BTL RIGHT EYE SCH (10:05)
[2017-11-27] MEDS: DORZOLAMIDE 2% OPTH SOLN 200 DROP/10 ML BTLO RIGHT EYE SCH ×2 (10:05→20:43)
[2017-11-27] MEDS: ARTIFICIAL TEARS OPTH OINT 3.5 APPLIC/3.5 GM TUBO RIGHT EYE SCH (10:05)
[2017-11-27] MEDS: BRIMONIDINE TARTRATE 0.15% OPHT SOLN 5 ML BTL RIGHT EYE SCH (10:05)
[2017-11-27 10:12] LABS: HEMATOCRIT 34.3 % (39.0-51.0)
[2017-11-27 10:20] LABS: HEMOGLOBIN 11.8 GM/DL (13.0-17.0)
--- NOTE | 2017-11-27 14:02 | HHI.PR ---
Subjective Remarks good po no complains no pain BP improved HR sinus- 64/min Objective Vitals Vital Signs Date Time Temp Pulse Resp B/P (MAP) Pulse Ox O2 Delivery O2 Flow Rate FiO2 11/27/17 08:00 95 Room Air 11/27/17 08:00 98.5 59 16 160/73 (102) 59 11/27/17 07:00 60 11/27/17 03:15 98.0 68 16 117/66 (83) 92 11/27/17 03:10 94 Room Air 11/27/17 03:00 60 11/27/17 02:00 56 11/27/17 01:00 58 11/27/17 00:00 56 11/27/17 00:00 97.7 56 16 127/58 (81) 100 11/26/17 23:48 90 Room Air 11/26/17 23:00 55 11/26/17 22:00 60 11/26/17 21:00 58 11/26/17 20:30 90 Room Air 11/26/17 20:30 97.7 125 16 118/65 (82) 90 11/26/17 20:00 54 11/26/17 19:00 55 11/26/17 18:00 52 11/26/17 17:00 54 11/26/17 16:00 58 11/26/17 15:00 56 11/26/17 15:00 97.9 55 16 131/60 (83) 96 11/26/17 15:00 96 Room Air 11/26/17 14:00 56 I/O 11/26/17 11/26/17 11/26/17 11/27/17 11/27/17 11/27/17 07:00 15:00 23:00 07:00 15:00 23:00 Intake Total 240 ml 149 ml 480 ml 660 ml Output Total 750 ml 700 ml 1300 ml Balance -510 ml 149 ml -220 ml -640 ml Intake Oral 240 ml 480 ml 660 ml IV Total 149 ml Output Urine Total 750 ml 700 ml 1300 ml # Voids 2 # Bowel Movements 0 1 Result Diagram: 11/27/17 0945 11/27/17 0522 Imaging Last Impressions Barium Enema 11/24/17 0000 Signed Impressions: Service Date/Time: November 11:28 - CONCLUSION: 1. Suboptimal single column barium enema demonstrating no large mass, stricture or obstruction. 2. There is diverticulosis greatest in the sigmoid colon. 3. Residual stool in the right side of the colon. Spencer Mc MD Objective Remarks awake and alert, no acute distress, legally blind, oriented x 3, irritable anicteric lungs- no rales regular rhythm abdomen soft, nontender extremities no edema moves all extremities spontaenously Procedures 11/23- EGD 1. Gastritis antrum-biopsy duodenum normal-biopsy 2. Retroflexed views revealed a hiatal hernia 11/23- colonoscopy- incomplete- poor prep 11/24-Barium enema- no mass 11/25- colonoscopy- diverticuloses A/P Assessment and Plan 87 years old male admitted for GI bleed S/P EGD- gastritis 11/23. - repeat colonosocpy- no acute bleed- likely diverticular bleed -S/P Kcentra per Eliquis reversal protocol on 11/21 - H&H stable at 8.2 - Protonix po - Gastroenterology following. EGD done - no remarkable findings. except for mild gastritis - d/w Dr. James- ok to restart Eliquis- more of diverticular bleed Paroxysmal Atrial fibrillation- in RVR- Nov- now in SR most likely with previous history of a fib- based on home meds (was on cardizem/ metoprolol/ eliquis as OP) - continue Lopressor 12.5 mg po bid- with hold parameters - on review of home meds- was on Metoprolol and Cardizem- were DC on admission due to hypotension and bradycardia and GIB HYpertension- improved - - low dose BB + Amlodipine 2.5 mg po daily History of CVA - neuro stable - restart Eliquis- d/w patient and daughter on the phone extensively - cleared by GI- Dr. Hassan to restart HYpocalcemia start calcium supplements Hyperlipidemia - Atorvastatin when by mouth Glaucoma - Brimonidine Tartrate - Dorzolamide/ Timolol - Latanoprost - Artificial Tears Full code. SCDs. DC home today CM- home health care nursing visits OP ff up with PCP GI ff up in 4 weeks Vish Oleary MD Nov 27, 2017 14:02
[2017-11-27] MEDS ORDERED: METO25TA3 PO (14:08)
[2017-11-27] MEDS ORDERED: FERR325T20 PO (14:08)
[2017-11-27] MEDS ORDERED: PANT40TA3 PO (14:08)
[2017-11-27] MEDS ORDERED: AMLO5 PO (14:08)
--- NOTE | 2017-11-27 14:11 | HHI.DS ---
Discharge Summary Admission Date Nov 21, 2017 at 18:47 Discharge Date: Nov 28, 2017 Admitting Diagnosis gi bleed, anticoagulated, CAD, (1) GIB (gastrointestinal bleeding) ICD Code: K92.2 - Gastrointestinal hemorrhage, unspecified Diagnosis: Principal (2) Atrial fibrillation ICD Code: I48.91 - Unspecified atrial fibrillation Diagnosis: Secondary Status: Acute Procedures 11/23- EGD 1. Gastritis antrum-biopsy duodenum normal-biopsy 2. Retroflexed views revealed a hiatal hernia 11/23- colonoscopy- incomplete- poor prep 11/24-Barium enema- no mass 11/25- colonoscopy- diverticuloses Brief History - From Admission 87-year-old male with a history of coronary artery disease, hypertension, hyperlipidemia, presents with complaints of weakness and abdominal discomfort. The patient was in the waiting room when he had a large bloody bowel movement. The patient is currently taking eliquis 5 mg twice daily. He denies any chest pain, chest pressure. He denies any shortness of breath. CBC/BMP: 11/27/17 0945 11/27/17 0522 Significant Findings Laboratory Tests Test 11/25/17 04:15 11/25/17 11:15 11/26/17 05:30 11/27/17 05:22 Red Blood Count 2.40 MIL/MM3 (4.50-5.90) 2.47 MIL/MM3 (4.50-5.90) Hemoglobin 8.2 GM/DL (13.0-17.0) 8.4 GM/DL (13.0-17.0) Hematocrit 24.5 % (39.0-51.0) 24.4 % (39.0-51.0) Mean Corpuscular Volume 102.0 FL (80.0-100.0) Mean Corpuscular Hemoglobin 34.1 PG (27.0-34.0) 34.2 PG (27.0-34.0) Random Glucose 168 MG/DL (74-106) 109 MG/DL (74-106) 137 MG/DL (74-106) Calcium Level 8.1 MG/DL (8.5-10.1) 7.2 MG/DL (8.5-10.1) Magnesium Level 2.9 MG/DL (1.5-2.5) Chloride Level 108 MEQ/L (98-107) 112 MEQ/L (98-107) Estimat Glomerular Filtration Rate 82 ML/MIN (>89) 63 ML/MIN (>89) Monocytes (%) (Auto) 8.6 % (0.0-8.0) Eosinophils (%) (Auto) 4.3 % (0.0-4.0) Total Protein 5.6 GM/DL (6.4-8.2) Potassium Level 3.1 MEQ/L (3.5-5.1) Protein Corrected Calcium 8.0 MG/DL (8.5-10.1) Iron Level 58 MCG/DL (65-175) Percent Iron Saturation 17.6 % (20-50) 25-Hydroxy Vitamin D Total 16.7 ng/ML (30-100) Test 11/27/17 09:45 Hemoglobin 11.8 GM/DL (13.0-17.0) Hematocrit 34.3 % (39.0-51.0) Imaging Last Impressions Barium Enema 11/24/17 0000 Signed Impressions: Service Date/Time: November 11:28 - CONCLUSION: 1. Suboptimal single column barium enema demonstrating no large mass, stricture or obstruction. 2. There is diverticulosis greatest in the sigmoid colon. 3. Residual stool in the right side of the colon. Spencer Mc MD PE at Discharge awake and alert, no acute distress, legally blind, oriented x 3, irritable anicteric lungs- no rales regular rhythm abdomen soft, nontender extremities no edema moves all extremities spontaenously Pt update on day of discharge afebrile in SR- HR 60s good BP good po no pain complains Hospital Course 87 years old male admitted for GI bleed S/P EGD- gastritis 11/23. - repeat colonosocpy- no acute bleed- likely diverticular bleed -S/P Kcentra per Eliquis reversal protocol on 11/21 - H&H stable at 8.2 - Protonix po - Gastroenterology following. EGD done - no remarkable findings. except for mild gastritis - d/w Dr. James- ok to restart Eliquis- more of diverticular bleed Paroxysmal Atrial fibrillation- in RVR- Nov- now in SR- bradycardia most likely with previous history of a fib- based on home meds (was on cardizem/ metoprolol/ eliquis as OP) - continue Lopressor 12.5 mg po bid- with hold parameters - on review of home meds- was on Metoprolol and Cardizem- were DC on admission due to hypotension and bradycardia and GIB HYpertension- improved - - low dose BB + Amlodipine 2.5 mg po daily History of CVA - neuro stable - restart Eliquis- d/w patient and daughter on the phone extensively - cleared by GI- Dr. Hassan to restart HYpocalcemia start calcium supplements Hyperlipidemia - Atorvastatin when by mouth Glaucoma - Brimonidine Tartrate - Dorzolamide/ Timolol - Latanoprost - Artificial Tears Full code. SCDs. DC home today CM- home health care nursing visits OP ff up with PCP GI ff up in 4 weeks Pt Condition on Discharge: Stable Discharge Disposition: Disch w/ Home Health Serv Discharge Time: <= 30 minutes Discharge Instructions DIET: Follow Instructions for: Heart Healthy Diet Speech Therapy-Diet Recommends: Regular Activities you can perform: Weight Bearing as David Activities to Avoid: Lifting/Bending, Prolonged Standing, Strenuous Activity Follow up Referrals: Gastroenterology - 2 Weeks with Ryan PCP Follow-up - 3-5 Days with Joseph New Medications: Amlodipine (Norvasc) 5 Mg Tab 2.5 MG PO DAILY for HTN for 30 Days, #15 TAB Ferrous Sulfate (Ferosul) 325 Mg (65 Mg Iron) Tablet 325 MG PO BID for anemia for 30 Days, #60 TAB Metoprolol Tartrate (Metoprolol Tartrate) 25 Mg Tab 12.5 MG PO Q12HR for paroafib for 30 Days, #60 TAB Pantoprazole (Pantoprazole) 40 Mg Tab 40 MG PO DAILY for gastritis for 30 Days, #30 TAB 1 Refill Continued Medications: Apixaban (Eliquis) 5 Mg Tab 5 MG PO Q12H for prevent stroke, #60 TAB 0 Refills Artificial Tear Opth Ointment (Lubricant Opth Ointment) 1 Oint 1 APPLIC RIGHT EYE DAILY Brimonidine Opth Drops (Alphagan P Opth Drops) 0.15% Soln 1 DROP RIGHT EYE DAILY for Intraocular pressure, #1 BOTTLE 0 Refills Dorzolamide-Timolol Opth Drops (Cosopt Opth Drops) 22.3-6.8 Mg/Ml Soln 1 DROP RIGHT EYE BID for Glaucoma, #1 BOTTLE 0 Refills Latanoprost Opth Drops (Xalatan Opth Drops) 0.005% Drops 1 DROP RIGHT EYE HS for Glaucoma, #2.5 ML 0 Refills Discontinued Medications: Diltiazem CD 24 HR (Cardizem CD 24 HR) 180 Mg Caper 180 MG PO DAILY for afib for 30 Days, CAP Metoprolol Tartrate (Metoprolol Tartrate) 25 Mg Tab 25 MG PO Q12HR for AFIB/HTN, #60 TAB 0 Refills Vish Oleary MD Nov 27, 2017 14:11
--- NOTE | 2017-11-27 15:34 | HHI.PR ---
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 dementia Vish Oleary MD Nov 27, 2017 15:34
--- NOTE | 2017-11-27 17:26 | RADRPT ---
EXAM DATE/TIME: 11/27/2017 17:16 [facility] COMPARISON: MRI BRAIN W & W/O CONTRAST, November 03, 2017, 9:48. CT BRAIN W/O CONTRAST, November 02, 2017, 20:0 5. INDICATIONS : Trauma, fall today onto head.. Known old infarction in the right parietal occipital region. RADIATION DOSE: 45.62 CTDIvol (mGy) MEDICAL HISTORY : Carcinoma, prostate. Hypertension. SURGICAL HISTORY : None. ENCOUNTER: Initial ACUITY: 1 day PAIN SCALE: Non-responsive LOCATION: Bilateral head TECHNIQUE: Multiple contiguous axial images were obtained of the head. Using automated exposure control and adj ustment of the mA and/or kV according to patient size, radiation dose was kept as low as reasonably a chievable to obtain optimal diagnostic quality images. DICOM format image data is available electro nically for review and comparison. FINDINGS: CEREBRUM: The ventricles are normal for age with diffuse The air encephalomalacia is again noted involving the right parietal occipital region. No evidence of midline shift, mass lesion, hemorrhage or acute infar ction. No extra-axial fluid collections are seen. POSTERIOR FOSSA: The cerebellum and brainstem are intact. The 4th ventricle is midline. The cerebellopontine angle i s unremarkable. EXTRACRANIAL: The visualized portion of the orbits is intact. SKULL: The calvaria is intact. No evidence of skull fracture. CONCLUSION: 1. No acute hemorrhage, mass or infarction. 2. Old area of infarction involving the right parietal occipital region. 3. Stable atrophic change. Spencer Mc MD on November 27, 2017 at 17:21 Board Certified Radiologist. This report was verified electronically.
[2017-11-27] MEDS: LATANOPROST 0.005% OPHT SOLN 2.5 ML BTL RIGHT EYE SCH (20:38)
[2017-11-28] VITALS (20 sets, daily range): BP systolic 103–123; BP diastolic 56–71; PULSE 50–89; RESP 16–18; TEMP 97.7–98.3; O2SAT 95–98
[2017-11-28] MEDS: CHLORHEXIDINE GLUCONATE 2 % 1 PACK (2 CLOTHS) TOP SCH (04:00)
[2017-11-28] MEDS: DOCUSATE SODIUM 50 MG/SENNA 8.6 MG TAB PO SCH (09:00)
[2017-11-28] MEDS ORDERED: APIXABAN 5 MG TABLET PO SCH (09:00)
[2017-11-28] MEDS: DORZOLAMIDE 2% OPTH SOLN 200 DROP/10 ML BTLO RIGHT EYE SCH (09:00)
[2017-11-28] MEDS: METOPROLOL TARTRATE 25 MG TAB PO SCH (09:00)
[2017-11-28] MEDS: FERROUS SULFATE 325 MG (65 MG ELEMENTAL IRON) TAB PO SCH (09:00)
[2017-11-28] MEDS: SODIUM CHLORIDE 0.9% FLUSH 10 ML FLUSH IV FLUSH SCH (09:00)
[2017-11-28] MEDS: BRIMONIDINE TARTRATE 0.15% OPHT SOLN 5 ML BTL RIGHT EYE SCH (09:00)
[2017-11-28] MEDS: ARTIFICIAL TEARS OPTH SOLN 15 ML BTL RIGHT EYE SCH (09:00)
[2017-11-28] MEDS: PANTOPRAZOLE SOD 40 MG DELAYED RELEASE TAB PO SCH (09:00)
[2017-11-28] MEDS: MULTIVITAMIN TAB PO SCH (09:00)
[2017-11-28] MEDS: ARTIFICIAL TEARS OPTH OINT 3.5 APPLIC/3.5 GM TUBO RIGHT EYE SCH (09:00)
[2017-11-28] MEDS: amLODIPine BESYLATE 5 MG TAB PO SCH (09:00)
[2017-11-28 10:02] LABS: HEMATOCRIT 36.9 % (39.0-51.0); HEMOGLOBIN 12.6 GM/DL (13.0-17.0)
--- NOTE | 2017-11-28 10:54 | PD.PSY.CON ---
Provisional Diagnosis Admission Date Nov 21, 2017 at 18:47 [place] I. History of dysthymic disorder History of Present Illness Service Psychiatry Consult Requested By Attending MNatalie. Reason for Consult Assessment Primary Care Physician Rodrigo Ruiz MD HPI Patient is a 87-year-old white male admitted to the medicine service for GI bleed and cardiac issues. Patient seen in his room with nurse. Patient is alert well oriented 87-year-old man who appears his stated age. He is resting calmly in his bed he denies voices or visions he denies suicidality homicidality. He denies any alcohol or drug use. He does state he works for the [employer] locally did have hepatic injury in the mid 70s. He did state he saw a psychiatrist locally and when he lived in [place]. The medial psychiatric hospitalization back then. Though he denied depression or any type of psychotic features or loss of touch with reality. He has not seen a mental health worker since then. He states he is he lives with 3 grandchildren of his first . They all live in his home. He says they have a good relationship and they care for each other. It appears she had a mild episode of confusion when going to the bathroom here in the past 24 hours though he recovered from it quite promptly with no residual. In any event at this time I see no significant psychiatric problems seen may have a little history of a dysthymia but I would not recommend any medications at this time.. Is okay by psychiatry this patient to be discharged when he is medically clear and stable to follow-up with his primary care physician's thanks for consult. Enough of the present time Review of Systems Constitutional: DENIES: Diaphoretic episodes, Fatigue, Fever, Weight gain, Weight loss, Chills, Dizziness, Change in appetite, Night Sweats Endocrine: DENIES: Heat/cold intolerance, Polydipsia, Polyuria, Polyphagia Eyes: DENIES: Blurred vision, Diplopia, Eye inflammation, Eye pain, Vision loss , Photosensitivity, Double Vision Ears, nose, mouth, throat: DENIES: Tinnitus, Hearing loss, Vertigo, Nasal discharge, Oral lesions, Throat pain, Hoarseness, Ear Pain, Running Nose, Epistaxis, Sinus Pain, Toothache, Odynophagia Respiratory: DENIES: Apneas, Cough, Snoring, Wheezing, Hemoptysis, Sputum production, Shortness of breath Cardiovascular: DENIES: Chest pain, Palpitations, Syncope, Dyspnea on Exertion , PND, Lower Extremity Edema, Orthopnea, Claudication Gastrointestinal: DENIES: Abdominal pain, Black stools, Bloody stools, Constipation, Diarrhea, Nausea, Vomiting, Difficulty Swallowing, Anorexia Genitourinary: DENIES: Sexual dysfunction, Urinary frequency, Urinary incontinence, Urgency, Hematuria, Dysuria, Nocturia, Penile Discharge, Testicular Pain, Testicular Swelling Musculoskeletal: DENIES: Joint pain, Muscle aches, Stiffness, Joint Swelling, Back pain, Neck pain Integumentary: DENIES: Abnormal pigmentation, Nail changes, Pruritus, Rash Hematologic/lymphatic: DENIES: Bruising, Lymphadenopathy Immunologic/allergic: DENIES: Eczema, Urticaria Psychiatric: DENIES: Anxiety, Confusion, Mood changes, Depression, Hallucinations, Agitation, Suicidal Ideation, Homicidal Ideation, Delusions Past Family Social History Coded Allergies: penicillin G (Unverified Allergy, Unknown, 11/21/17) Active Scripts Pantoprazole (Pantoprazole) 40 Mg Tab, 40 MG PO DAILY for gastritis for 30 Days , #30 TAB 1 Refill Prov:Vish Oleary MD 11/27/17 Amlodipine (Norvasc) 5 Mg Tab, 2.5 MG PO DAILY for HTN for 30 Days, #15 TAB Prov:Vish Oleary MD 11/27/17 Metoprolol Tartrate (Metoprolol Tartrate) 25 Mg Tab, 12.5 MG PO Q12HR for paroafib for 30 Days, #60 TAB Prov:Vish Oleary MD 11/27/17 Ferrous Sulfate (Ferosul) 325 Mg (65 Mg Iron) Tablet, 325 MG PO BID for anemia for 30 Days, #60 TAB Prov:Vish Oleary MD 11/27/17 Apixaban (Eliquis) 5 Mg Tab, 5 MG PO Q12H for prevent stroke, #60 TAB 0 Refills Prov:Camelia Spaulding MD 11/04/17 Diltiazem CD 24 HR (Cardizem CD 24 HR) 180 Mg Caper, 180 MG PO DAILY for afib for 30 Days, CAP Prov:Steve Arzate MD 10/28/16 Reported Medications Metoprolol Tartrate (Metoprolol Tartrate) 25 Mg Tab, 25 MG PO Q12HR for AFIB/HTN , #60 TAB 0 Refills 10/12/16 Latanoprost Opth Drops (Xalatan Opth Drops) 0.005% Drops, 1 DROP RIGHT EYE HS for Glaucoma, #2.5 ML 0 Refills 10/12/16 Multiple Vitamin (Multiple Vitamin) 1 Tab, 1 TAB PO DAILY for Nutritional Supplement, TAB 0 Refills 10/12/16 Artificial Tear Opth Ointment (Lubricant Opth Ointment) 1 Oint, 1 APPLIC RIGHT EYE DAILY 10/12/16 Artificial Tear Solution Opth Drops (Artificial Tears Opth Drops) 0.1-0.3% Soln , 1 DROP RIGHT EYE DAILY 10/12/16 Dorzolamide-Timolol Opth Drops (Cosopt Opth Drops) 22.3-6.8 Mg/Ml Soln, 1 DROP RIGHT EYE BID for Glaucoma, #1 BOTTLE 0 Refills 10/12/16 Brimonidine Opth Drops (Alphagan P Opth Drops) 0.15% Soln, 1 DROP RIGHT EYE DAILY for Intraocular pressure, #1 BOTTLE 0 Refills 10/12/16 Current Medications Medications (Trade) Dose Ordered Sig/Germain Route Start Time Stop Time Status Last Admin (Alphagan P 0.15% Opth Soln) 1 drop DAILY RIGHT EYE 11/22/17 09:00 11/28/17 09:00 (Xalatan 0.005% Opth Soln) 1 drop HS RIGHT EYE 11/21/17 21:00 11/27/17 20:38 (Lacrilube Opht Oint) 1 applic DAILY RIGHT EYE 11/22/17 09:00 11/27/17 10:05 (Tears Naturale Opth Soln) 1 drop DAILY RIGHT EYE 11/22/17 09:00 11/27/17 10:05 (Theragran) 1 tab DAILY PO 11/22/17 09:00 11/28/17 09:00 (NS Flush) 2 ml UNSCH PRN IV FLUSH 11/21/17 20:00 11/22/17 23:02 (NS Flush) 2 ml BID IV FLUSH 11/21/17 21:00 11/28/17 09:00 (Tylenol) 650 mg Q6H PRN PO 11/21/17 20:00 (Morphine Inj) 2 mg Q2H PRN IV PUSH 11/21/17 20:00 (Zofran Inj) 4 mg Q6H PRN IV PUSH 11/21/17 20:00 (Ambien) 5 mg HS PRN PO 11/21/17 20:00 11/27/17 22:36 (Duoneb Neb) 1 ampule Q2HR NEB PRN INH 11/21/17 20:00 Miscellaneous Information 1 Q361D XX 11/21/17 20:00 (Chlorhexidine 2% Cloth) Taper DAILY@04 TOP 11/22/17 04:00 11/18/18 03:59 11/23/17 03:41 (Chlorhexidine 2% Cloth) 3 pack UNSCH PRN TOP 11/21/17 20:00 (Kisha-Colace) 1 tab BID PO 11/21/17 21:00 11/27/17 20:37 (Milk Of Magnesia Liq) 30 ml Q12H PRN PO 11/21/17 20:00 (Senokot) 17.2 mg Q12H PRN PO 11/21/17 20:00 (Dulcolax Supp) 10 mg DAILY PRN RECTAL 11/21/17 20:00 (Lactulose Liq) 30 ml DAILY PRN PO 11/21/17 20:00 (Trusopt 2% Opth Soln) 1 drop BID RIGHT EYE 11/23/17 11:00 11/28/17 09:00 (Timoptic 0.5% Opth Soln) 1 drop BID RIGHT EYE 11/23/17 11:00 Future Hold 11/26/17 10:00 (Protonix) 40 mg DAILY PO 11/25/17 09:00 11/28/17 09:00 (Lopressor) 12.5 mg Q12HR PO 11/25/17 21:00 11/28/17 09:00 (Pill Splitter) 1 ea UNSCH PRN OTHER 11/25/17 14:00 (Ferrous Sulfate) 325 mg BID PO 11/25/17 21:00 11/28/17 09:00 (Norvasc) 2.5 mg DAILY PO 11/26/17 15:15 11/28/17 09:00 (Eliquis) 5 mg BID PO 11/28/17 09:00 11/28/17 09:00 Family Psych History Patient denies Social History Patient has been twice and has poor relationship with his 2 children. Lives with 3 grandchildren of his former Patient's Strengths (min. 2) Patient verbal cooperative femoral access healthcare Physical Exam Please see MedSurg assessments Vital Signs Vital Signs Date Time Temp Pulse Resp B/P (MAP) Pulse Ox O2 Delivery O2 Flow Rate FiO2 11/28/17 08:30 98.2 89 18 115/71 (86) 98 11/28/17 08:30 Room Air I/O 11/28/17 11/28/17 11/29/17 08:00 16:00 00:00 Intake Total 240 ml Output Total 350 ml Balance -110 ml Lab Results Test 11/28/17 09:40 Hemoglobin 12.6 GM/DL Hematocrit 36.9 % Mental Status Examination Appearance: Appropriate Consciousness: Alert Orientation: x4 Motor Activity: Other (patient in bed unable to assess) Speech: Unremarkable Language: Adequate Fund of Knowledge: Adequate Attention and Concentration: Other (poor) Memory: Unremarkable (fair) Mood: Appropriate Affect: Other (decreased range and intensity) Thought Process & Associations: Intact Thought Content: Appropriate Hallucination Type: None Delusion Type: None Suicidal Ideation: No Suicidal Plan: No Suicidal Intention: No Homicidal Ideation: No Homicidal Plan: No Insight: Fair Judgment: Adequate Assessment & Plan Problem List: (1) History of dysthymic disorder ICD Codes: Z86.59 - Personal history of other mental and behavioral disorders Assessment & Plan Estimated LOS: days as okay by psych for discharge, no specific recommendation for medication by me he may follow-up with his primary care physician. Thanks for consult I will sign off the present time Discharge Planning See above Request HC Surrog/Guard Advoc?: No Jasvir Alvarado MD Nov 28, 2017 10:54
--- NOTE | 2017-11-28 12:42 | HHI.PR ---
Subjective Remarks no complains no headaches speech clear good po Objective Vitals Vital Signs Date Time Temp Pulse Resp B/P (MAP) Pulse Ox O2 Delivery O2 Flow Rate FiO2 11/28/17 11:15 95 Room Air 11/28/17 11:15 98.3 75 18 105/56 (72) 95 11/28/17 11:01 58 11/28/17 10:00 64 11/28/17 09:00 86 11/28/17 08:30 98.2 89 18 115/71 (86) 98 11/28/17 08:30 98 Room Air 11/28/17 08:00 72 11/28/17 07:01 81 11/28/17 06:00 80 11/28/17 05:00 79 11/28/17 04:00 58 11/28/17 03:24 98.1 63 16 123/63 (83) 95 11/28/17 03:21 96 Room Air 11/28/17 03:00 50 11/28/17 02:00 58 11/28/17 01:00 58 11/28/17 00:00 52 11/27/17 23:06 97.7 80 16 162/67 (98) 99 11/27/17 23:03 98 Room Air 11/27/17 23:00 50 11/27/17 22:00 58 11/27/17 21:00 62 11/27/17 20:49 98 Room Air 11/27/17 20:47 97.5 71 16 158/70 (99) 98 11/27/17 20:00 72 11/27/17 19:00 57 11/27/17 15:00 97.6 56 14 116/58 (77) 98 11/27/17 15:00 97 Room Air 11/27/17 14:00 56 11/27/17 13:00 56 I/O 11/27/17 11/27/17 11/27/17 11/28/17 11/28/17 11/28/17 07:00 15:00 23:00 07:00 15:00 23:00 Intake Total 660 ml 720 ml 240 ml Output Total 1300 ml 350 ml Balance -640 ml 720 ml -110 ml Intake Oral 660 ml 720 ml 240 ml Output Urine Total 1300 ml 350 ml # Voids 2 # Bowel Movements 1 0 Result Diagram: 11/28/17 0940 11/27/17 0522 Imaging Last Impressions Head CT 11/27/17 0000 Signed Impressions: Service Date/Time: Monday, November 27, 2017 17:16 - CONCLUSION: 1. No acute hemorrhage, mass or infarction. 2. Old area of infarction involving the right parietal occipital region. 3. Stable atrophic change. Spencer Mc MD Barium Enema 11/24/17 0000 Signed Impressions: Service Date/Time: November 11:28 - CONCLUSION: 1. Suboptimal single column barium enema demonstrating no large mass, stricture or obstruction. 2. There is diverticulosis greatest in the sigmoid colon. 3. Residual stool in the right side of the colon. Spencer Mc MD Objective Remarks awake and alert, no acute distress, legally blind, oriented x 3, pleasant and cooperative anicteric lungs- no rales regular rhythm abdomen soft, nontender extremities no edema moves all extremities spontaneously Procedures 11/23- EGD 1. Gastritis antrum-biopsy duodenum normal-biopsy 2. Retroflexed views revealed a hiatal hernia 11/23- colonoscopy- incomplete- poor prep 11/24-Barium enema- no mass 11/25- colonoscopy- diverticuloses A/P Assessment and Plan 87 years old male admitted for GI bleed S/P EGD- gastritis 11/23. - repeat colonosocpy- no acute bleed- likely diverticular bleed -S/P Kcentra per Eliquis reversal protocol on 11/21 - H&H stable at 8.2 - Protonix po - Gastroenterology following. EGD done - no remarkable findings. except for mild gastritis - d/w Dr. James- ok to restart Eliquis- more of diverticular bleed Paroxysmal Atrial fibrillation- in RVR- Nov- now in SR most likely with previous history of a fib- based on home meds (was on cardizem/ metoprolol/ eliquis as OP) - continue Lopressor 12.5 mg po bid- with hold parameters - on review of home meds- was on Metoprolol and Cardizem- were DC on admission due to hypotension and bradycardia and GIB HYpertension- improved - - low dose BB + Amlodipine 2.5 mg po daily History of CVA - neuro stable - restart Eliquis- d/w patient and daughter on the phone extensively - cleared by GI- Dr. Hassan to restart HYpocalcemia start calcium supplements Hyperlipidemia - Atorvastatin when by mouth Glaucoma - Brimonidine Tartrate - Dorzolamide/ Timolol - Latanoprost - Artificial Tears S/P fall - neuro exam unremakrable Head CT negative - Full code. SCDs. DC home today CM- home health care nursing visits OP ff up with PCP GI ff up in 4 weeks Vish Oleary MD Nov 28, 2017 12:42
== END 2017-11-28 15:30 | disposition home health service (06) | DRG 378 ==
LOC: NEPC 13:20 → NEDA 18:47 → HCVI 22:57 → HCIN 11-22 22:31 → N07B 11-23 22:47 → HCVI 11-25 16:23 → HCPC 11-26 07:05
PROVIDERS: ADMIT Family Medicine; ATTEND Family Medicine
PROC: 0DB98ZX Excision of Duodenum, Via Natural or Artificial Opening Endoscopic, Diagnostic (ICD-10-PCS; 2017-11-23)
PROC: 0DB68ZX Excision of Stomach, Via Natural or Artificial Opening Endoscopic, Diagnostic (ICD-10-PCS; 2017-11-23)
PROC: 0DJD8ZZ Inspection of Lower Intestinal Tract, Via Natural or Artificial Opening Endoscopic (ICD-10-PCS; 2017-11-23 12:20)
PROC: 0DJD8ZZ Inspection of Lower Intestinal Tract, Via Natural or Artificial Opening Endoscopic (ICD-10-PCS; principal; 2017-11-24 09:45)
PROC: 30233N1 Transfusion of Nonautologous Red Blood Cells into Peripheral Vein, Percutaneous Approach (ICD-10-PCS; 2017-11-25)
DX: K57.31 Diverticulosis of large intestine without perforation or abscess with bleeding (principal); D62 Acute posthemorrhagic anemia; I48.0 Paroxysmal atrial fibrillation; F03.90 Unspecified dementia, unspecified severity, without behavioral disturbance, psychotic disturbance, mood disturbance, and anxiety; R00.1 Bradycardia, unspecified; E83.51 Hypocalcemia; K29.70 Gastritis, unspecified, without bleeding; K44.9 Diaphragmatic hernia without obstruction or gangrene; K64.8 Other hemorrhoids; K64.4 Residual hemorrhoidal skin tags; I10 Essential (primary) hypertension; I25.10 Atherosclerotic heart disease of native coronary artery without angina pectoris; Z79.02 Long term (current) use of antithrombotics/antiplatelets; E78.5 Hyperlipidemia, unspecified; Z86.73 Personal history of transient ischemic attack (TIA), and cerebral infarction without residual deficits; H40.9 Unspecified glaucoma; H54.8 Legal blindness, as defined in USA; S00.83XA Contusion of other part of head, initial encounter; W19.XXXA Unspecified fall, initial encounter; Y92.239 Unspecified place in hospital as the place of occurrence of the external cause; Z85.46 Personal history of malignant neoplasm of prostate; Z86.59 Personal history of other mental and behavioral disorders
CPT/HCPCS: 36430; 70450; 74270; 76937; 80048; 80053; 82306; 82550; 82652; 82728; 83540; 83550; 83690; 83735; 84100; 84155; 84443; 84484; 85014; 85018; 85025; 85027; 85610; 85730; 86850; 86900; 86901; 86920; 88305; 88312; 93005; 99291; C9113; C9132; J2370; J3480; J7030; J7040; J7120; P9016